=== PATIENT | female | born 1955 | race Caucasian/White ===

== ENCOUNTER 2016-11-13 17:10 | Inpatient (IN) | payer MEDICAID ==
[~2016-11-13] VITALS: Ht 149.9 cm; Wt 28.6 kg
[~2016-11-13 17:10] MED LIST: ALUM-MAG HYDRO360 ML PO; ATIVAN1 MG ORAL; BENADRYL25 MG ORAL; CALCIUM500 M3 PO; COLACE100 MG ORAL; DAILY MULTIPLE1 EACH ORAL; DUONEB 0.5-3(2.53 ML HHN; FERROUS SULFAT325 MG ORAL; FORTEO2.4 ML SUBQ; HYDRALAZINE HCL25 M1 ORAL; IMODIUM A-1 MG/7.5 M PO; METOPROLOL TART50 M1 ORAL; MIRALAX17 G2 GT; MIRTAZAPINE15 MG GT; MIRTAZAPINE15 MG ORAL; MORPHINE SU2 MG/1 M1 IV; NASONEX17 GM NASAL; NITROGLYCERIN0.4 MG SL; NITROSTAT0.4 M1 SL; NORCO 5-325 TA1 EACH ORAL; PROTONIX40 MG GT; SEROQUEL200 MG ORAL; TAPAZOLE5 M1 PO; TEMAZEPAM15 MG GT; TRIHEXYPHENIDYL2 MG ORAL; TYLENOL325 MG ORAL; VANCOMYCIN1 GM; VITAMIN C250 MG ORAL; VITAMIN D22000 UNIT PO; ZOFRAN 4 MG4 MG/2 ML IV; ZYPREXA10 MG ORAL
[2016-11-13 17:35] VITALS: BP 142/77
[2016-11-13] MEDS: Acetaminophen 650 MG SUPP RECTAL ONE ×2 (18:10→18:17)
[2016-11-13] MEDS ORDERED: Ketorolac 30mg Inj IV ONE (18:15)
[2016-11-13] MEDS ORDERED: ARICEPT5 MG GT (18:27)
[2016-11-13] MEDS ORDERED: BENGAY ULTRA S1 EACH TP (18:27)
[2016-11-13] MEDS ORDERED: ATIVAN1 MG GT (18:27)
[2016-11-13] MEDS ORDERED: IBUPROFEN600 MG GT (18:28)
[2016-11-13] MEDS ORDERED: DUONEB 0.5-3(2.53 ML HHN (18:28)
[2016-11-13] MEDS ORDERED: MAALOX ADVANCE770 ML PO (18:28)
[2016-11-13 18:35] LABS: MEAN CORPUSCULAR HEMOGLOBIN 31.8 PG (27.0-31.0); MEAN CORPUSCULAR HGB CONC 33.3 G/DL (32.0-36.0); MEAN CORPUSCULAR VOLUME 96 FL (80-99); MEAN PLATELET VOLUME 8.5 FL (6.5-10.1); PLATELET COUNT 185 K/UL (150-450); RED BLOOD COUNT 3.92 M/UL (4.20-5.40); RED CELL DISTRIBUTION WIDTH 13.1 % (11.6-14.8); WHITE BLOOD COUNT 18.7 K/UL (4.8-10.8)
[2016-11-13 18:47] LABS: TROPONIN I < 0.30 ng/mL (<=0.30)
[2016-11-13 18:50] LABS: ALANINE AMINOTRANSFERASE 68 U/L (3-33); ALBUMIN/GLOBULIN RATIO 1.1 (1.0-2.7); ANION GAP 18 (5-15); ASPARTATE AMINO TRANSFERASE 37 U/L (5-40); CALCIUM 9.1 mg/dL (8.6-10.2); CARBON DIOXIDE 26 mEQ/L (20-30); CHLORIDE 103 mEQ/L (98-107); CREATININE 0.9 mg/dL (0.5-0.9); GLOMERULAR FILTRATION RATE > 60 mL/min (>60); HEMOLYSIS 82; POTASSIUM 4.5 mEQ/L (3.4-4.9); REFLEX LACTIC ACID YES OR NO YES; SODIUM 147 mEQ/L (135-145); TOTAL PROTEIN 6.7 g/dL (6.6-8.7)
[2016-11-13 19:00] LABS: CKMB 2.6 ng/mL (< 3.8)
[2016-11-13 19:11] LABS: APPEARANCE,URINE CLEAR; PH,URINE 7 (4.5-8.0)
[2016-11-13 19:11] LABS: BILIRUBIN,DIRECT 0.5 mg/dL (0.1-0.3)
[2016-11-13 19:12] LABS: KETONES,URINE NEGATIVE (NEGATIVE); LEUKOCYTE ESTERASE ,URINE NEGATIVE (NEGATIVE); NITRITE,URINE NEGATIVE (NEGATIVE); PROTEIN,URINE 2+ (NEGATIVE); UROBILINOGEN,URINE NORMAL MG/DL (0.0-1.0)
[2016-11-13] MEDS ORDERED: ROBITUSSIN COU118 M4 PO (19:20)
[2016-11-13] MEDS ORDERED: ZYPREXA2.5 MG GT (19:21)
[2016-11-13 19:30] LABS: BACTERIA,URINE FEW /HPF; RBC,URINE 0-2 /HPF (0 - 2); WBC,URINE 0-2 /HPF (0 - 2)
[2016-11-13 19:58] LABS: BAND NEUTROPHILS % (MANUAL) 1 % (0-8); BASOPHILS % (MANUAL) 0 % (0-2); EOSINOPHILS % (MANUAL) 0 % (0-3); LYMPHOCYTES % (MANUAL) 13 % (20-45); NEUTROPHILS % (MANUAL) 84 % (45-75); PLATELET ESTIMATE ADEQUATE; PLATELET MORPHOLOGY NORMAL; TOTAL CELLS COUNTED 100
[2016-11-13] MEDS ORDERED: Ampicillin/Sulbactam Sod 3 GM in NS 110 ML IVPB ONE (20:00)
[2016-11-13] MEDS ORDERED: Morphine Sulfate 2mg/ml Inj IVP ONE (20:00)
[2016-11-13] MEDS ORDERED: Unasyn 3gm Inj ONE (20:06)
[2016-11-13] MEDS ORDERED: LORazepam Inj 2mg/ml 1ml IV ONE (20:30)
[2016-11-13] MEDS ORDERED: Metoprolol 5mg/5ml Inj IVP ONE (20:30)
--- NOTE | 2016-11-13 22:23 | Emergency Room Report ---
History of Present Illness General Chief Complaint: Malfunctioning Gastric Tube Source: Family Member, Medical Record Present Illness HPI 61-year-old female presents to ED for evaluation. Per EMS patient was sent in for G-tube placement. Patient resides in complex at home and facility members state that they're unable to flush the G-tube for one day. Patient has encephalopathy and cannot provide any additional history at this time. Patient' s brother is at bedside and is a physician. States that patient also noted to have a fever, tachycardic. Patient has a recent history of multiple watery stools. Brother is also concerned that the patient is having some knee pain. Patient has significant degenerative arthritis in both knees however for the last one week has been complaining of more pain in her knees. No aggravating relieving factors. Denies any other associated symptom Allergies: Coded Allergies: No Known Allergies (Unverified , 05/30/16) Patient History Past Medical History: HTN, other - encephalopathy Past Surgical History: none, other - gtube Pertinent Family History: none Social History: Denies: alcohol use, drug use, smoking Now: No Immunizations: UTD Reviewed Nursing Documentation: PMH: Agreed, PSxH: Agreed Nursing Documentation-PMH Past Medical History: No History, Except For Hx Hypertension: Yes Hx Pacemaker: No Hx Cancer: No Hx Gastrointestinal Problems: Yes - G-tube Hx Neurological Problems: Yes - Muscle weakness, Encephalopathy Hx Parkinson's Disease: Yes Review of Systems All Other Systems: negative except mentioned in HPI Physical Exam Vital Signs Date Time Temp Pulse Resp B/P Pulse Ox O2 Delivery O2 Flow Rate FiO2 11/13/16 17:21 100.0 132 20 142/77 11/13/16 17:35 100 Room Air Sp02 EP Interpretation: reviewed, normal General Appearance: cachetic, thin Head: normocephalic Eyes: bilateral eye PERRL, bilateral eye normal inspection ENT: normal ENT inspection Neck: normal inspection Respiratory: chest non-tender, lungs clear, normal breath sounds, speaking full sentences Cardiovascular #1: no edema, tachycardia Gastrointestinal: other - gtube Rectal: deferred Genitourinary: no CVA tenderness Musculoskeletal: other - swelling b/l knees. unable to extend bilateral knees Neurologic: other - encephalopathy Psychiatric: other - encephalopathy Skin: normal inspection Lymphatic: normal inspection Medical Decision Making Diagnostic Impression: Primary Impression: Sepsis Qualified Codes: A41.9 - Sepsis, unspecified organism Additional Impressions: Physical retardation Colitis Knee fracture, right Malfunction of gastrostomy tube ER Course Hospital Course 61-year-old female presents to ED for G-tube malfunction, noted to have fever and diarrhea, right knee pain Differential diagnoses include: UTI, sepsis, G-tube malfunction, fracture, dislocation Clinical course Patient placed on stretcher. On monitoring specialist with tachycardia. After initial history and physical, I ordered labs, IV fluids, EKG, chest x-ray, blood cultures, UA. The G-tube is not amenable to replacement in emergency room. Patient will require G-tube replacement by GI specialist Labs-leukocytosis noted, hb/hct stable, Na 147, lactate > 2, trop negative CXR - no acute process X-rays of the knees show extensive degenerative changes in the left knee however there is a distal femur fracture in the right knee. Patient is contracted and bedbound. Unable to extend the knee. Patient placed in a long leg splint. C diff stool toxin collected. Antibiotics given. Given Ativan and Lopressor for hypertension, tachycardia Case discussed with Dr. Levy Stern for orthopedics Case discussed with Dr Beasley and they agreed to admit patient to their service for further care and support I feel this is a highly complex case requiring extensive working including EKG/ Rhythm strip, Xray/CT/US, Blood/urine lab work, repeat exams while in ED, and administration of strong opiates/narcotics for pain control, admission to hospital or close patient follow up. Diagnosis - sepsis, physical retardation, colitis, right knee fracture, malfunctioning of gastrostomy tube Patient admitted to telemetry in serious condition Labs Test 11/13/16 17:45 11/13/16 18:13 11/13/16 20:00 White Blood Count 18.7 K/UL (4.8-10.8) Red Blood Count 3.92 M/UL (4.20-5.40) Hemoglobin 12.5 G/DL (12.0-16.0) Hematocrit 37.4 % (37.0-47.0) Mean Corpuscular Volume 96 FL (80-99) Mean Corpuscular Hemoglobin 31.8 PG (27.0-31.0) Mean Corpuscular Hemoglobin Concent 33.3 G/DL (32.0-36.0) Red Cell Distribution Width 13.1 % (11.6-14.8) Platelet Count 185 K/UL (150-450) Mean Platelet Volume 8.5 FL (6.5-10.1) Neutrophils (%) (Auto) % (45.0-75.0) Lymphocytes (%) (Auto) % (20.0-45.0) Monocytes (%) (Auto) % (1.0-10.0) Eosinophils (%) (Auto) % (0.0-3.0) Basophils (%) (Auto) % (0.0-2.0) Differential Total Cells Counted 100 Neutrophils % (Manual) 84 % (45-75) Lymphocytes % (Manual) 13 % (20-45) Monocytes % (Manual) 2 % (1-10) Eosinophils % (Manual) 0 % (0-3) Basophils % (Manual) 0 % (0-2) Band Neutrophils 1 % (0-8) Platelet Estimate Adequate Platelet Morphology Normal Red Blood Cell Morphology Normal Sodium Level 147 mEQ/L (135-145) Potassium Level 4.5 mEQ/L (3.4-4.9) Chloride Level 103 mEQ/L (98-107) Carbon Dioxide Level 26 mEQ/L (20-30) Anion Gap 18 (5-15) Blood Urea Nitrogen 17 mg/dL (7-23) Creatinine 0.9 mg/dL (0.5-0.9) Estimat Glomerular Filtration Rate > 60 mL/min (>60) Glucose Level 121 mg/dL (74-106) Lactic Acid Level 2.00 mmol/L (0.66-2.22) 1.30 mmol/L (0.66-2.22) Calcium Level 9.1 mg/dL (8.6-10.2) Total Bilirubin 1.2 mg/dL (0.0-1.2) Direct Bilirubin 0.5 mg/dL (0.1-0.3) Aspartate Amino Transf (AST/SGOT) 37 U/L (5-40) Alanine Aminotransferase (ALT/SGPT) 68 U/L (3-33) Alkaline Phosphatase 106 U/L (35-104) Total Creatine Kinase 126 U/L (26-140) Creatine Kinase MB 2.6 ng/mL (< 3.8) Creatine Kinase MB Relative Index 2.0 Troponin I < 0.30 ng/mL (<=0.30) Total Protein 6.7 g/dL (6.6-8.7) Albumin 3.6 g/dL (3.5-5.2) Globulin 3.1 g/dL Albumin/Globulin Ratio 1.1 (1.0-2.7) Urine Color Yellow Urine Appearance Clear Urine pH 7 (4.5-8.0) Urine Specific [place] 1.005 (1.005-1.035) Urine Protein 2+ (NEGATIVE) Urine Glucose (UA) Negative (NEGATIVE) Urine Ketones Negative (NEGATIVE) Urine Occult Blood 1+ (NEGATIVE) Urine Nitrite Negative (NEGATIVE) Urine Bilirubin Negative (NEGATIVE) Urine Urobilinogen Normal MG/DL (0.0-1.0) Urine Leukocyte Esterase Negative (NEGATIVE) Urine RBC 0-2 /HPF (0 - 2) Urine WBC 0-2 /HPF (0 - 2) Urine Squamous Epithelial Cells None /LPF (NONE/OCC) Urine Bacteria Few /HPF (NONE) EKG Diagnostic Results Rate: tachycardiac Rhythm: NSR ST Segments: no acute changes ASA given to the pt in ED: No Rhythm Strip Diag. Results EP Interpretation: yes Rhythm: NSR, no PVC's, no ectopy Chest X-Ray Diagnostic Results EP Interpretation: Yes Findings: no consolidation, no effusion, no pneumothorax, no acute cardiopulmonary disease Number of Views: 1 Other X-Ray Diagnostic Results Other X-Ray Diagnostic Results : X-Ray Ordered: R knee, L knee EP Interpretation: Yes Number of Views: 3 Other Impression Left knee-screws in place, no fracture, no dislocation, market soft tissue swelling, extensive degenerative changes Right knee-distal femur fracture, no dislocation, market soft tissue swelling, extensive degenerative changes Last Vital Signs Date Time Temp Pulse Resp B/P Pulse Ox O2 Delivery O2 Flow Rate FiO2 11/13/16 20:41 134 169/91 11/13/16 18:56 100.9 11/13/16 17:35 28 100 Room Air Status: improved Disposition: ADMITTED INPATIENT Condition: Serious Referrals: MONIK BEASLEY (PCP) CIRA BIRCH M.D. Nov 13, 2016 22:23
[2016-11-14 00:12] VITALS: BP 148/80
[2016-11-14] MEDS ORDERED: Nitroglycerin Subl 0.4mg tab (Bottle Of 25) SL PRN (03:30)
[2016-11-14] MEDS ORDERED: Promethazine/Codeine 5ml UD ORAL PRN (03:30)
[2016-11-14] MEDS ORDERED: DuoNeb 0.5-3(2.5)mg/3ml neb HHN PRN (03:30)
[2016-11-14] MEDS ORDERED: LORazepam 1mg tab GT PRN (03:30)
[2016-11-14] MEDS ORDERED: Miralax 17gm pkt ORAL PRN (03:30)
[2016-11-14] MEDS ORDERED: Mylanta II UD 30ml ORAL PRN (03:30)
[2016-11-14 04:07] VITALS: BP 144/70
[2016-11-14] MEDS ORDERED: Cefepime 1gm vial ONE (04:52)
[2016-11-14] MEDS: Cefepime HCl 1 GM in D5W 55 ML IV SCH (05:11)
[2016-11-14] MEDS ORDERED: Vancomycin 500mg/D5W 110ml IVPB ONE ×4 (06:00→12:00)
[2016-11-14] MEDS: LORazepam Inj 2mg/ml 1ml IVP PRN (07:09)
[2016-11-14] MEDS ORDERED: Acetaminophen 650 MG SUPP RECTAL PRN (07:45)
--- NOTE | 2016-11-14 10:03 | Diagnostic Imaging Report ---
Indications: Shortness of breath Technique: Portable AP chest Findings: Comparison: 09/26/16 Cardiac silhouette remains normal in size. Pulmonary vasculature remains within normal limits. Lungs and pleura remain clear. Mild elongation of the aortic arch, elongation and narrowing of the thorax, chronic appearing left rib deformities are unchanged. IMPRESSION: No evidence of acute disease, unchanged Stable chronic changes as described
--- NOTE | 2016-11-14 10:05 | Diagnostic Imaging Report ---
Indications: Left knee pain Technique: 3 views left knee. Findings: Comparison: None No fracture, dislocation, joint space widening or effusion , lytic destruction, periosteal reaction, surrounding soft tissue swelling/foreign body/other abnormality, or other acute changes are identified. Fixation hardware bridges an old, healed fracture of the distal femur. Chronic contour deformity lateral tibial plateau with depression. Bones diffusely demineralized. Probable narrowing of patellofemoral and knee joint spaces. Arterial mural calcifications. IMPRESSION: No evidence of acute abnormality. Old distal femoral, proximal tibial fractures, status post ORIF of former Osteopenia Probable osteoarthritis
[2016-11-14] MEDS: Donepezil 5mg Tab ORAL SCH (10:45)
[2016-11-14] MEDS: OLANZapine 2.5mg tab GT SCH (10:45)
[2016-11-14] MEDS: Heparin 5000 units/ml inj SUBQ SCH ×2 (10:47→21:00)
[2016-11-14 12:00] VITALS: BP 157/95
--- NOTE | 2016-11-14 12:15 | GI Initial Consult Note ---
History of Present Illness General Date patient seen: Nov 14, 2016 Time patient seen: 10:00 Reason for Hospitalization: Malfunctioning Gastric Tube Referring physician: FRANCESCO GOINS Reason for Consultation: GT MALFUNCTION Present Illness HPI 61-year-old female presents to ED for evaluation. Per EMS patient was sent in for G-tube placement. Patient resides in complex at home and facility members state that they're unable to flush the G-tube for one day. Patient has encephalopathy and cannot provide any additional history at this time. Patient' s brother is at bedside and is a physician. States that patient also noted to have a fever, tachycardic. Patient has a recent history of multiple watery stools. Brother is also concerned that the patient is having some knee pain. Patient has significant degenerative arthritis in both knees however for the last one week has been complaining of more pain in her knees. No aggravating relieving factors. Denies any other associated symptom GI CONSULT: HPI as noted above. GI consulted for GT malfunction. Pt seen on floor, awake A&O limited with son by bedside NAD. GT assessed and flushed. GT site area clean, dry with no noted drainage or erythema. Pt presents today with abnormal LFTs, c/o of diarrhea and leukocytosis. Cdiff tox collected >> negative. Endoscopy Procedure Note Indication for Procedure: FTT Procedures Performed: EGD, PEG DAYA CRANE - Sep 28, 2016 08:36 Home Meds Reported Medications Olanzapine* (ZYPREXA*) 2.5 Mg Tablet, 2.5 MG GT DAILY, #30 TAB 0 Refills 11/13/16 Guaifenesin/Dextromethorphan (Robitussin Cough-Chest Dm Liq) 118 Ml Liquid, 10 ML PO EVERY 8 HOURS Y for For Cough, ML 11/13/16 Ibuprofen* (MOTRIN*) 600 Mg Tablet, 600 MG ORAL Q8H Y for For Pain, #30 TAB 0 Refills 11/13/16 Menthol (BENGAY ULTRA STRENGTH) 1 Each Adh..patch, 1 EACH TP BID, PATCH 11/13/16 Lorazepam* (ATIVAN*) 1 Mg Tablet, 1 MG GT EVERY 6 HOURS Y for For Anxiety, TAB 11/13/16 Donepezil Hcl* (ARICEPT*) 5 Mg Tablet, 5 MG ORAL DAILY, TAB 11/13/16 Mirtazapine* (REMERON*) 15 Mg Tablet, 15 MG GT BEDTIME, TAB 09/26/16 Temazepam (TEMAZEPAM*) 15 Mg Capsule, 15 MG GT HS Y for Insomnia, #30 CAP 0 Refills 06/04/16 Polyethylene Glycol 3350* (MIRALAX*) 17 Gm Powd.pack, 17 GM ORAL DAILY Y for Constipation, PACKET 06/04/16 Pantoprazole* (PROTONIX*) 40 Mg Tablet.dr, 40 MG GT ACBREAKFAST, TAB 06/04/16 Nitroglycerin (NITROSTAT) 0.4 Mg Tab.subl, 0.4 MG SL Q5M X3 DOSES Y for AD, #25 TAB 0 Refills 06/04/16 Ipratropium/Albuterol Sulfate (DuoNeb 0.5-3(2.5)mg/3ml) 3 Ml Ampul.neb, 3 ML HHN Q4HR Y for Shortness of Breath, EA 06/04/16 Acetaminophen (Tylenol) 325 Mg Tablet, 650 MG ORAL Q4HR Y for Mild Pain/Temp > 100.5, #30 TAB 0 Refills 06/04/16 Mag Hydrox/Al Hydrox/Simeth (ALUM-MAG HYDROXIDE-SIMETH LIQ) 360 Ml Oral.susp, 30 ML PO Q6HR Y for Abdominal cramps, ML 05/30/16 Discontinued Reported Medications Mag Hydrox/Al Hydrox/Simeth (Maalox Advanced Suspension) 355 Ml Oral.susp, 30 ML PO EVERY 6 HOURS Y for GI upset, ML 11/13/16 Ipratropium/Albuterol Sulfate (DuoNeb 0.5-3(2.5)mg/3ml) 3 Ml Ampul.neb, 3 ML HHN EVERY 4 HOURS, EA 11/13/16 Med list reviewed/reconciled: Yes Allergies: Coded Allergies: No Known Allergies (Unverified , 05/30/16) Patient History Limited by: medical condition History Provided By: Family Member, Medical Record PMH Narrative Past Medical History: HTN, other - encephalopathy Past Surgical History: none, other - gtube Pertinent Family History: none Social History: Denies: alcohol use, drug use, smoking Now: No Immunizations: UTD Reviewed Nursing Documentation: PMH: Agreed, PSxH: Agreed Nursing Documentation-PM Past Medical History: No History, Except For Hx Hypertension: Yes Hx Pacemaker: No Hx Cancer: No Hx Gastrointestinal Problems: Yes - G-tube Hx Neurological Problems: Yes - Muscle weakness, Encephalopathy Hx Parkinson's Disease: Yes Review of Systems All Other Systems: limited Physical Exam Vital Signs Date Time Temp Pulse Resp B/P Pulse Ox O2 Delivery O2 Flow Rate FiO2 11/13/16 17:21 100.0 132 20 142/77 11/13/16 17:35 100 Room Air 11/14/16 00:12 2.0 11/14/16 07:50 28 Sp02 EP Interpretation: reviewed Labs Laboratory Tests Test 11/13/16 17:45 11/13/16 18:13 11/13/16 20:00 White Blood Count 18.7 K/UL (4.8-10.8) H Red Blood Count 3.92 M/UL (4.20-5.40) L Hemoglobin 12.5 G/DL (12.0-16.0) Hematocrit 37.4 % (37.0-47.0) Mean Corpuscular Volume 96 FL (80-99) Mean Corpuscular Hemoglobin 31.8 PG (27.0-31.0) H Mean Corpuscular Hemoglobin Concent 33.3 G/DL (32.0-36.0) Red Cell Distribution Width 13.1 % (11.6-14.8) Platelet Count 185 K/UL (150-450) Mean Platelet Volume 8.5 FL (6.5-10.1) Neutrophils (%) (Auto) % (45.0-75.0) Lymphocytes (%) (Auto) % (20.0-45.0) Monocytes (%) (Auto) % (1.0-10.0) Eosinophils (%) (Auto) % (0.0-3.0) Basophils (%) (Auto) % (0.0-2.0) Differential Total Cells Counted 100 Neutrophils % (Manual) 84 % (45-75) H Lymphocytes % (Manual) 13 % (20-45) L Monocytes % (Manual) 2 % (1-10) Eosinophils % (Manual) 0 % (0-3) Basophils % (Manual) 0 % (0-2) Band Neutrophils 1 % (0-8) Platelet Estimate Adequate Platelet Morphology Normal Red Blood Cell Morphology Normal Sodium Level 147 mEQ/L (135-145) H Potassium Level 4.5 mEQ/L (3.4-4.9) Chloride Level 103 mEQ/L (98-107) Carbon Dioxide Level 26 mEQ/L (20-30) Anion Gap 18 (5-15) H Blood Urea Nitrogen 17 mg/dL (7-23) Creatinine 0.9 mg/dL (0.5-0.9) Estimat Glomerular Filtration Rate > 60 mL/min (>60) Glucose Level 121 mg/dL (74-106) H Lactic Acid Level 2.00 mmol/L (0.66-2.22) 1.30 mmol/L (0.66-2.22) Calcium Level 9.1 mg/dL (8.6-10.2) Total Bilirubin 1.2 mg/dL (0.0-1.2) Direct Bilirubin 0.5 mg/dL (0.1-0.3) H Aspartate Amino Transf (AST/SGOT) 37 U/L (5-40) Alanine Aminotransferase (ALT/SGPT) 68 U/L (3-33) H Alkaline Phosphatase 106 U/L (35-104) H Total Creatine Kinase 126 U/L (26-140) Creatine Kinase MB 2.6 ng/mL (< 3.8) Creatine Kinase MB Relative Index 2.0 Troponin I < 0.30 ng/mL (<=0.30) Total Protein 6.7 g/dL (6.6-8.7) Albumin 3.6 g/dL (3.5-5.2) Globulin 3.1 g/dL Albumin/Globulin Ratio 1.1 (1.0-2.7) Urine Color Yellow Urine Appearance Clear Urine pH 7 (4.5-8.0) Urine Specific [place] 1.005 (1.005-1.035) Urine Protein 2+ (NEGATIVE) H Urine Glucose (UA) Negative (NEGATIVE) Urine Ketones Negative (NEGATIVE) Urine Occult Blood 1+ (NEGATIVE) H Urine Nitrite Negative (NEGATIVE) Urine Bilirubin Negative (NEGATIVE) Urine Urobilinogen Normal MG/DL (0.0-1.0) Urine Leukocyte Esterase Negative (NEGATIVE) Urine RBC 0-2 /HPF (0 - 2) Urine WBC 0-2 /HPF (0 - 2) Urine Squamous Epithelial Cells None /LPF (NONE/OCC) Urine Bacteria Few /HPF (NONE) General Appearance: no apparent distress, alert, thin Head: normocephalic EENT: normal ENT inspection Neck: supple Respiratory: no respiratory distress Cardiovascular: tachycardia Gastrointestinal: gt - c/d/i Neurologic: alert Skin: normal inspection, normal color, no rash, warm/dry Lymphatic: normal inspection, no adenopathy Current Medications Current Medications Medications (Trade) Dose Ordered Sig/Curt Route PRN Reason Start Time Stop Time Status Last Admin Dose Admin Acetaminophen (Tylenol) 650 mg Q4H PRN RECTAL Mild Pain/Temp > 100.5 11/14/16 07:45 12/14/16 07:44 Al Hydroxide/Mg Hydroxide (Mylanta II) 30 ml Q6H PRN ORAL dyspepsia 11/14/16 03:30 12/14/16 03:29 Albuterol/ Ipratropium 3 ml 3 ml Q4H PRN HHN Shortness of Breath 11/14/16 03:30 11/19/16 03:29 Cefepime HCl/ Dextrose (Maxipime/D5W) 55 ml @ 110 mls/hr Q24H IV 11/14/16 05:00 11/21/16 04:59 11/14/16 05:11 Donepezil HCl (Aricept) 5 mg DAILY ORAL 11/14/16 09:00 12/14/16 08:59 11/14/16 10:45 Heparin Sodium (Porcine) (Heparin 5000 units/ml) 5,000 units EVERY 12 HOURS SUBQ 11/14/16 09:00 12/14/16 08:59 11/14/16 10:47 Ibuprofen 600 mg 600 mg Q6H PRN ORAL Moderate Pain (Pain Scale 4-6) 11/14/16 10:30 12/14/16 10:29 Lorazepam (Ativan 2mg/ml 1ml) 1 mg Q6HR PRN IVP For Anxiety 11/14/16 07:00 11/21/16 06:59 11/14/16 07:09 Morphine Sulfate (Morphine Sulfate) 2 mg Q4H PRN IVP Severe Pain (Pain Scale 7-10) 11/14/16 10:30 11/21/16 10:29 Nitroglycerin (Ntg) 0.4 mg Q5M PRN SL Prn Chest Pain 11/14/16 03:30 12/14/16 03:29 Olanzapine (ZyPREXA) 2.5 mg DAILY GT 11/14/16 09:00 12/14/16 08:59 11/14/16 10:45 Ondansetron HCl (Zofran) 4 mg Q6H PRN IVP Nausea & Vomiting 11/14/16 03:30 12/14/16 03:29 Polyethylene Glycol (Miralax) 17 gm DAILYPRN PRN ORAL Constipation 11/14/16 03:30 12/14/16 03:29 Promethazine HCl/ Codeine (Phenergan with Codeine) 5 ml Q4H PRN ORAL For Cough 11/14/16 03:30 12/14/16 03:29 Temazepam (Restoril) 15 mg HSPRN PRN ORAL Insomnia 11/14/16 03:30 11/21/16 03:29 Vancomycin HCl (Vanco rx to dose) 1 ea DAILY PRN MISC Per rx protocol 11/14/16 03:30 12/14/16 03:29 Vancomycin HCl 500 mg/Dextrose 110 ml @ 110 mls/hr ONCE ONCE IVPB 11/14/16 12:00 11/14/16 12:59 Vancomycin HCl/ Dextrose (Vancomycin/D5W) 275 ml @ 183.708 mls/hr Q24H IVPB 11/15/16 12:00 11/20/16 11:59 GI: Plan Problems: (1) Severe malnutrition (2) Malfunction of gastrostomy tube (3) Leukocytosis (4) Physical retardation Plan cdiff negative GT malfunction >> KUB placement confirmation >> DO NOT USE, GT not in stomach > > ordered APCT - possible GT replacement hold GTFs GT care daily / prn honey thick diet for oral gratification H2 fu labs abx recommend ortho consult for R knee Discussed with Dr. Crane. Thank you for referring this patient, we will follow. Concetta Reece N.P. Nov 14, 2016 12:15
[2016-11-14] MEDS: Morphine Sulfate 2mg/ml Inj IVP PRN (12:16)
--- NOTE | 2016-11-14 13:42 | Consultation ---
History of Present Illness General Date patient seen: Nov 14, 2016 Chief Complaint: Malfunctioning Gastric Tube Referring physician: FRANCESCO GOINS Reason for Consultation: GT MALFUNCTION Present Illness HPI 61 year old female with mental and physical retardation, [facility] feeding shelter resident. She was brought in to [facility], then she was noted to have tachycardia and admitted to telemetry. She apparently has some injuries to he right knee. Ortho was also called by ER physician. Allergies: Coded Allergies: No Known Allergies (Unverified , 05/30/16) Medication History Scheduled Donepezil Hcl* (Aricept*), 5 MG ORAL DAILY, (Reported) Menthol ([place] Ultra Strength), 1 EACH TP BID, (Reported) Mirtazapine* (Remeron*), 15 MG GT BEDTIME, (Reported) Olanzapine* (Zyprexa*), 2.5 MG GT DAILY, (Reported) Pantoprazole* (Protonix*), 40 MG GT ACBREAKFAST, (Reported) Scheduled PRN Acetaminophen (Tylenol), 650 MG ORAL Q4HR PRN for Mild Pain/Temp > 100.5, ( Reported) Guaifenesin/Dextromethorphan (Robitussin Cough-Chest Dm Liq), 10 ML PO EVERY 8 HOURS PRN for For Cough, (Reported) Ibuprofen* (Motrin*), 600 MG ORAL Q8H PRN for For Pain, (Reported) Ipratropium/Albuterol Sulfate (DuoNeb 0.5-3(2.5)mg/3ml), 3 ML HHN Q4HR PRN for Shortness of Breath, (Reported) Lorazepam* (Ativan*), 1 MG GT EVERY 6 HOURS PRN for For Anxiety, (Reported) Mag Hydrox/Al Hydrox/Simeth (Alum-Mag Hydroxide-Simeth Liq), 30 ML PO Q6HR PRN for Abdominal cramps, (Reported) Nitroglycerin (Nitrostat), 0.4 MG SL Q5M X3 DOSES PRN for AD, (Reported) Polyethylene Glycol 3350* (Miralax*), 17 GM ORAL DAILY PRN for Constipation, ( Reported) Temazepam (Temazepam*), 15 MG GT HS PRN for Insomnia, (Reported) Discontinued Medications Ipratropium/Albuterol Sulfate (DuoNeb 0.5-3(2.5)mg/3ml), 3 ML HHN EVERY 4 HOURS, (Reported) Discontinued Reason: discontinued med Mag Hydrox/Al Hydrox/Simeth (Maalox Advanced Suspension), 30 ML PO EVERY 6 HOURS PRN for GI upset, (Reported) Discontinued Reason: MD discontinued med Patient History Healthcare decision maker Jaswant Eduardo (brother) Resuscitation status Full Code Advanced Directive on File No Past Medical/Surgical History Past Medical/Surgical History: (1) Severe malnutrition (2) Physical retardation Review of Systems Constitutional: Reports: no symptoms Eye: Reports: no symptoms Physical Exam Lines, tubes and drains: peripheral, central line HEENT: normocephalic, atraumatic Neck: non-tender, normal alignment Respiratory/Chest: chest wall non-tender, lungs clear Breasts: no masses Cardiovascular/Chest: normal rate Abdomen: normal bowel sounds Genitourinary/Rectal: normal genital exam Last 24 Hour Vital Signs Date Time Temp Pulse Resp B/P Pulse Ox O2 Delivery O2 Flow Rate FiO2 11/14/16 12:46 98.7 11/14/16 07:51 Nasal Cannula 2.0 28 11/14/16 07:51 114 20 Nasal Cannula 2.0 28 11/14/16 07:50 100 Nasal Cannula 2.0 28 11/14/16 07:49 120 11/14/16 04:07 98.7 114 18 144/70 100 Nasal Cannula 2.0 11/14/16 03:29 116 11/14/16 00:12 98.3 111 19 148/80 97 Nasal Cannula 2.0 11/13/16 23:55 113 11/13/16 21:00 100.9 126 28 169/91 100 Room Air 11/13/16 20:41 134 169/91 11/13/16 18:56 100.9 11/13/16 17:35 98.8 140 28 142/77 100 Room Air 11/13/16 17:21 100.0 132 20 142/77 Intake and Output 11/13/16 11/14/16 19:00 07:00 Output Total 30 ml 800 ml Balance -30 ml -800 ml Output Urine Total 30 ml 800 ml # Bowel Movements 1 Laboratory Tests Test 11/13/16 17:45 11/13/16 18:13 11/13/16 20:00 White Blood Count 18.7 K/UL (4.8-10.8) H Red Blood Count 3.92 M/UL (4.20-5.40) L Hemoglobin 12.5 G/DL (12.0-16.0) Hematocrit 37.4 % (37.0-47.0) Mean Corpuscular Volume 96 FL (80-99) Mean Corpuscular Hemoglobin 31.8 PG (27.0-31.0) H Mean Corpuscular Hemoglobin Concent 33.3 G/DL (32.0-36.0) Red Cell Distribution Width 13.1 % (11.6-14.8) Platelet Count 185 K/UL (150-450) Mean Platelet Volume 8.5 FL (6.5-10.1) Neutrophils (%) (Auto) % (45.0-75.0) Lymphocytes (%) (Auto) % (20.0-45.0) Monocytes (%) (Auto) % (1.0-10.0) Eosinophils (%) (Auto) % (0.0-3.0) Basophils (%) (Auto) % (0.0-2.0) Differential Total Cells Counted 100 Neutrophils % (Manual) 84 % (45-75) H Lymphocytes % (Manual) 13 % (20-45) L Monocytes % (Manual) 2 % (1-10) Eosinophils % (Manual) 0 % (0-3) Basophils % (Manual) 0 % (0-2) Band Neutrophils 1 % (0-8) Platelet Estimate Adequate Platelet Morphology Normal Red Blood Cell Morphology Normal Sodium Level 147 mEQ/L (135-145) H Potassium Level 4.5 mEQ/L (3.4-4.9) Chloride Level 103 mEQ/L (98-107) Carbon Dioxide Level 26 mEQ/L (20-30) Anion Gap 18 (5-15) H Blood Urea Nitrogen 17 mg/dL (7-23) Creatinine 0.9 mg/dL (0.5-0.9) Estimat Glomerular Filtration Rate > 60 mL/min (>60) Glucose Level 121 mg/dL (74-106) H Lactic Acid Level 2.00 mmol/L (0.66-2.22) 1.30 mmol/L (0.66-2.22) Calcium Level 9.1 mg/dL (8.6-10.2) Total Bilirubin 1.2 mg/dL (0.0-1.2) Direct Bilirubin 0.5 mg/dL (0.1-0.3) H Aspartate Amino Transf (AST/SGOT) 37 U/L (5-40) Alanine Aminotransferase (ALT/SGPT) 68 U/L (3-33) H Alkaline Phosphatase 106 U/L (35-104) H Total Creatine Kinase 126 U/L (26-140) Creatine Kinase MB 2.6 ng/mL (< 3.8) Creatine Kinase MB Relative Index 2.0 Troponin I < 0.30 ng/mL (<=0.30) Total Protein 6.7 g/dL (6.6-8.7) Albumin 3.6 g/dL (3.5-5.2) Globulin 3.1 g/dL Albumin/Globulin Ratio 1.1 (1.0-2.7) Urine Color Yellow Urine Appearance Clear Urine pH 7 (4.5-8.0) Urine Specific [place] 1.005 (1.005-1.035) Urine Protein 2+ (NEGATIVE) H Urine Glucose (UA) Negative (NEGATIVE) Urine Ketones Negative (NEGATIVE) Urine Occult Blood 1+ (NEGATIVE) H Urine Nitrite Negative (NEGATIVE) Urine Bilirubin Negative (NEGATIVE) Urine Urobilinogen Normal MG/DL (0.0-1.0) Urine Leukocyte Esterase Negative (NEGATIVE) Urine RBC 0-2 /HPF (0 - 2) Urine WBC 0-2 /HPF (0 - 2) Urine Squamous Epithelial Cells None /LPF (NONE/OCC) Urine Bacteria Few /HPF (NONE) Microbiology Date/Time Source Procedure Growth Status 11/13/16 18:13 Stool Clostridium difficile Toxin Assay - Final Complete Height (Feet): 4 Height (Inches): 11.00 Weight (Pounds): 63 Medications Current Medications Medications (Trade) Dose Ordered Sig/Curt Route PRN Reason Start Time Stop Time Status Last Admin Dose Admin Acetaminophen (Tylenol) 650 mg Q4H PRN RECTAL Mild Pain/Temp > 100.5 11/14/16 07:45 12/14/16 07:44 Al Hydroxide/Mg Hydroxide (Mylanta II) 30 ml Q6H PRN ORAL dyspepsia 11/14/16 03:30 12/14/16 03:29 Albuterol/ Ipratropium 3 ml 3 ml Q4H PRN HHN Shortness of Breath 11/14/16 03:30 11/19/16 03:29 Cefepime HCl/ Dextrose (Maxipime/D5W) 55 ml @ 110 mls/hr Q24H IV 11/14/16 05:00 11/21/16 04:59 11/14/16 05:11 Donepezil HCl (Aricept) 5 mg DAILY ORAL 11/14/16 09:00 12/14/16 08:59 11/14/16 10:45 Famotidine (Pepcid I.v.) 20 mg Q12HR IVP 11/15/16 09:00 12/15/16 08:59 Heparin Sodium (Porcine) (Heparin 5000 units/ml) 5,000 units EVERY 12 HOURS SUBQ 11/14/16 09:00 12/14/16 08:59 11/14/16 10:47 Ibuprofen 600 mg 600 mg Q6H PRN ORAL Moderate Pain (Pain Scale 4-6) 11/14/16 10:30 12/14/16 10:29 Lorazepam (Ativan 2mg/ml 1ml) 1 mg Q6HR PRN IVP For Anxiety 11/14/16 07:00 11/21/16 06:59 11/14/16 07:09 Morphine Sulfate (Morphine Sulfate) 2 mg Q4H PRN IVP Severe Pain (Pain Scale 7-10) 11/14/16 10:30 11/21/16 10:29 11/14/16 12:16 Nitroglycerin (Ntg) 0.4 mg Q5M PRN SL Prn Chest Pain 11/14/16 03:30 12/14/16 03:29 Olanzapine (ZyPREXA) 2.5 mg DAILY GT 11/14/16 09:00 12/14/16 08:59 11/14/16 10:45 Ondansetron HCl (Zofran) 4 mg Q6H PRN IVP Nausea & Vomiting 11/14/16 03:30 12/14/16 03:29 Polyethylene Glycol (Miralax) 17 gm DAILYPRN PRN ORAL Constipation 11/14/16 03:30 12/14/16 03:29 Promethazine HCl/ Codeine (Phenergan with Codeine) 5 ml Q4H PRN ORAL For Cough 11/14/16 03:30 12/14/16 03:29 Temazepam (Restoril) 15 mg HSPRN PRN ORAL Insomnia 11/14/16 03:30 11/21/16 03:29 Vancomycin HCl (Vanco rx to dose) 1 ea DAILY PRN MISC Per rx protocol 11/14/16 03:30 12/14/16 03:29 Vancomycin HCl/ Dextrose (Vancomycin/D5W) 275 ml @ 183.708 mls/hr Q24H IVPB 11/15/16 12:00 11/20/16 11:59 Assessment/Plan Problem List: (1) Tachycardia ICD Codes: R00.0 - Tachycardia, unspecified SNOMED: 9789896 (2) Encounter for PEG (percutaneous endoscopic gastrostomy) ICD Codes: Z43.1 - Encounter for attention to gastrostomy SNOMED: 618495603, 712662511 (3) Malfunction of gastrostomy tube ICD Codes: K94.23 - Gastrostomy malfunction SNOMED: 224653615 (4) Physical retardation ICD Codes: R62.52 - Short stature (child) SNOMED: 654157145 Assessment/Plan pain control cardiology evaluation Ortho evaluation dvt prophylaxis FRANCESCO BO Nov 14, 2016 13:42
[2016-11-14 16:00] VITALS: BP 152/82
--- NOTE | 2016-11-14 16:14 | Infectious Diseases Prog Note ---
Assessment/Plan Problems: (1) Sepsis Assessment & Plan: continue vancomycin and cefepime, await blood culture (2) Encounter for PEG (percutaneous endoscopic gastrostomy) Assessment & Plan: GI is consulted (3) Leukocytosis Assessment & Plan: suspect due to sepsis VS dehydration , send culture continue wide spectrum antibiotics (4) Femur fracture, right Assessment & Plan: S/P cast placement, consult ortho Subjective Allergies: Coded Allergies: No Known Allergies (Unverified , 05/30/16) Objective Vital Signs Last 24 Hour Vital Signs Date Time Temp Pulse Resp B/P Pulse Ox O2 Delivery O2 Flow Rate FiO2 11/14/16 16:00 97.9 125 20 152/82 94 Nasal Cannula 2.0 11/14/16 12:46 98.7 11/14/16 12:00 98.2 120 18 157/95 100 Nasal Cannula 3.0 112 11/14/16 07:51 Nasal Cannula 2.0 28 11/14/16 07:51 114 20 Nasal Cannula 2.0 28 11/14/16 07:50 100 Nasal Cannula 2.0 28 11/14/16 07:49 120 11/14/16 04:07 98.7 114 18 144/70 100 Nasal Cannula 2.0 11/14/16 03:29 116 11/14/16 00:12 98.3 111 19 148/80 97 Nasal Cannula 2.0 11/13/16 23:55 113 11/13/16 21:00 100.9 126 28 169/91 100 Room Air 11/13/16 20:41 134 169/91 11/13/16 18:56 100.9 11/13/16 17:35 98.8 140 28 142/77 100 Room Air 11/13/16 17:21 100.0 132 20 142/77 Height (Feet): 4 Height (Inches): 11.00 Weight (Pounds): 63 Microbiology Date/Time Source Procedure Growth Status 11/13/16 18:13 Stool Clostridium difficile Toxin Assay - Final Complete Laboratory Tests Test 11/13/16 17:45 11/13/16 18:13 11/13/16 20:00 White Blood Count 18.7 K/UL (4.8-10.8) H Red Blood Count 3.92 M/UL (4.20-5.40) L Hemoglobin 12.5 G/DL (12.0-16.0) Hematocrit 37.4 % (37.0-47.0) Mean Corpuscular Volume 96 FL (80-99) Mean Corpuscular Hemoglobin 31.8 PG (27.0-31.0) H Mean Corpuscular Hemoglobin Concent 33.3 G/DL (32.0-36.0) Red Cell Distribution Width 13.1 % (11.6-14.8) Platelet Count 185 K/UL (150-450) Mean Platelet Volume 8.5 FL (6.5-10.1) Neutrophils (%) (Auto) % (45.0-75.0) Lymphocytes (%) (Auto) % (20.0-45.0) Monocytes (%) (Auto) % (1.0-10.0) Eosinophils (%) (Auto) % (0.0-3.0) Basophils (%) (Auto) % (0.0-2.0) Differential Total Cells Counted 100 Neutrophils % (Manual) 84 % (45-75) H Lymphocytes % (Manual) 13 % (20-45) L Monocytes % (Manual) 2 % (1-10) Eosinophils % (Manual) 0 % (0-3) Basophils % (Manual) 0 % (0-2) Band Neutrophils 1 % (0-8) Platelet Estimate Adequate Platelet Morphology Normal Red Blood Cell Morphology Normal Sodium Level 147 mEQ/L (135-145) H Potassium Level 4.5 mEQ/L (3.4-4.9) Chloride Level 103 mEQ/L (98-107) Carbon Dioxide Level 26 mEQ/L (20-30) Anion Gap 18 (5-15) H Blood Urea Nitrogen 17 mg/dL (7-23) Creatinine 0.9 mg/dL (0.5-0.9) Estimat Glomerular Filtration Rate > 60 mL/min (>60) Glucose Level 121 mg/dL (74-106) H Lactic Acid Level 2.00 mmol/L (0.66-2.22) 1.30 mmol/L (0.66-2.22) Calcium Level 9.1 mg/dL (8.6-10.2) Total Bilirubin 1.2 mg/dL (0.0-1.2) Direct Bilirubin 0.5 mg/dL (0.1-0.3) H Aspartate Amino Transf (AST/SGOT) 37 U/L (5-40) Alanine Aminotransferase (ALT/SGPT) 68 U/L (3-33) H Alkaline Phosphatase 106 U/L (35-104) H Total Creatine Kinase 126 U/L (26-140) Creatine Kinase MB 2.6 ng/mL (< 3.8) Creatine Kinase MB Relative Index 2.0 Troponin I < 0.30 ng/mL (<=0.30) Total Protein 6.7 g/dL (6.6-8.7) Albumin 3.6 g/dL (3.5-5.2) Globulin 3.1 g/dL Albumin/Globulin Ratio 1.1 (1.0-2.7) Urine Color Yellow Urine Appearance Clear Urine pH 7 (4.5-8.0) Urine Specific [place] 1.005 (1.005-1.035) Urine Protein 2+ (NEGATIVE) H Urine Glucose (UA) Negative (NEGATIVE) Urine Ketones Negative (NEGATIVE) Urine Occult Blood 1+ (NEGATIVE) H Urine Nitrite Negative (NEGATIVE) Urine Bilirubin Negative (NEGATIVE) Urine Urobilinogen Normal MG/DL (0.0-1.0) Urine Leukocyte Esterase Negative (NEGATIVE) Urine RBC 0-2 /HPF (0 - 2) Urine WBC 0-2 /HPF (0 - 2) Urine Squamous Epithelial Cells None /LPF (NONE/OCC) Urine Bacteria Few /HPF (NONE) Current Medications Medications (Trade) Dose Ordered Sig/Curt Route PRN Reason Start Time Stop Time Status Last Admin Dose Admin Acetaminophen (Tylenol) 650 mg Q4H PRN RECTAL Mild Pain/Temp > 100.5 11/14/16 07:45 12/14/16 07:44 Al Hydroxide/Mg Hydroxide (Mylanta II) 30 ml Q6H PRN ORAL dyspepsia 11/14/16 03:30 12/14/16 03:29 Albuterol/ Ipratropium 3 ml 3 ml Q4H PRN HHN Shortness of Breath 11/14/16 03:30 11/19/16 03:29 Cefepime HCl/ Dextrose (Maxipime/D5W) 55 ml @ 110 mls/hr Q24H IV 11/14/16 05:00 11/21/16 04:59 11/14/16 05:11 Donepezil HCl (Aricept) 5 mg DAILY ORAL 11/14/16 09:00 12/14/16 08:59 11/14/16 10:45 Famotidine (Pepcid I.v.) 20 mg Q12HR IVP 11/15/16 09:00 12/15/16 08:59 Heparin Sodium (Porcine) (Heparin 5000 units/ml) 5,000 units EVERY 12 HOURS SUBQ 11/14/16 09:00 12/14/16 08:59 11/14/16 10:47 Ibuprofen 600 mg 600 mg Q6H PRN ORAL Moderate Pain (Pain Scale 4-6) 11/14/16 10:30 12/14/16 10:29 Lorazepam (Ativan 2mg/ml 1ml) 1 mg Q6HR PRN IVP For Anxiety 11/14/16 07:00 11/21/16 06:59 11/14/16 07:09 Morphine Sulfate (Morphine Sulfate) 2 mg Q4H PRN IVP Severe Pain (Pain Scale 7-10) 11/14/16 10:30 11/21/16 10:29 11/14/16 12:16 Nitroglycerin (Ntg) 0.4 mg Q5M PRN SL Prn Chest Pain 11/14/16 03:30 12/14/16 03:29 Olanzapine (ZyPREXA) 2.5 mg DAILY GT 11/14/16 09:00 12/14/16 08:59 11/14/16 10:45 Ondansetron HCl (Zofran) 4 mg Q6H PRN IVP Nausea & Vomiting 11/14/16 03:30 12/14/16 03:29 Polyethylene Glycol (Miralax) 17 gm DAILYPRN PRN ORAL Constipation 11/14/16 03:30 12/14/16 03:29 Promethazine HCl/ Codeine (Phenergan with Codeine) 5 ml Q4H PRN ORAL For Cough 11/14/16 03:30 12/14/16 03:29 Temazepam (Restoril) 15 mg HSPRN PRN ORAL Insomnia 11/14/16 03:30 11/21/16 03:29 Vancomycin HCl (Vanco rx to dose) 1 ea DAILY PRN MISC Per rx protocol 11/14/16 03:30 12/14/16 03:29 Vancomycin HCl/ Dextrose (Vancomycin/D5W) 275 ml @ 183.708 mls/hr Q24H IVPB 2/9/17 12:00 11/20/16 11:59 Fede Cannon M.D. Nov 14, 2016 16:14
[2016-11-14 20:00] VITALS: BP 146/78
--- NOTE | 2016-11-14 21:08 | Consultation ---
DATE OF CONSULTATION: INFECTIOUS DISEASE CONSULTATION CONSULTING PHYSICIAN: Fede Cannon M.D. REQUESTING PHYSICIAN: Justyn Mcpherson D.O. REASON FOR CONSULTATION: Sepsis, fever, and leukocytosis. Recommendation for antibiotics treatment. HISTORY OF PRESENT ILLNESS: The patient is a 61-year-old female with mental delay, was sent to the [facility] emergency room for G-tube placement. The patient lives at a rehabilitation facility where they were unable to flush her G-tube for one day. The patient was noted to have fever and tachycardia with watery diarrhea. She also had right knee pain. The patient had an x-ray of her right knee, which showed distal femur shaft fracture. G-tube was unable to be replaced in the emergency room. So, she was admitted for further evaluation. The patient was found to have fever with leukocytosis, so she was started on IV antibiotics and I was asked by the primary provider for antibiotics treatment and management for possible sepsis. As of note, the patient is a poor historian and cannot provide good history. History was mainly obtained from the medical record. PAST MEDICAL HISTORY: Significant for hypertension, dysphagia, Parkinson, developmental delay, and encephalopathy. PAST SURGICAL HISTORY: She had a G-tube placement. MEDICATIONS: The patient received vancomycin and cefepime. For the rest of her medications, please refer to MAR. ALLERGIES: She has no known drug allergy. SOCIAL HISTORY: She had no recent drugs, tobacco, or alcohol. FAMILY HISTORY: Unable to obtain. REVIEW OF SYSTEMS: Unable to obtain at this point. LABORATORY DATA: White count 18.7, hemoglobin of 12.5, and platelet count of 185,000. BUN of 17 and creatinine of 0.9. AST of 37 and ALT of 68. Urine analysis was negative for urinary tract infection. MICROBIOLOGY: Stool for C. difficile was negative. IMAGING: Chest x-ray showed no evidence of acute disease. Right knee x-ray showed old distal femoral proximal tibial fracture status post open reduction internal fixation of the femur, osteopenia, and probable osteoarthritis. PHYSICAL EXAMINATION: VITAL SIGNS: Temperature 97.9 degrees, pulse 125, respirations 20, blood pressure 152/82, and saturation 94% on two liters nasal cannula. GENERAL: A middle-aged female, malnourished, demented, lying in bed, alert, and not in distress. HEENT: Normocephalic and atraumatic. Pupils are reactive to light equally. Pale sclerae. Dry oral mucosa. No exudate. NECK: Supple. No lymphadenopathy. CARDIOVASCULAR: Regular rate and rhythm. Tachycardic. S1 and S2 positive. LUNGS: She had diminished breathing sounds at the bases, but no wheezing or rhonchi. ABDOMEN: Soft, nontender, and nondistended. Positive bowel sounds. No hepatosplenomegaly. G-tube site looks intact with no skin erythema or cellulitis. EXTREMITIES: She has right leg in a cast. Left leg, no edema or cyanosis. ASSESSMENT AND PLAN: 1. Sepsis and leukocytosis. Source could be gastrostomy site infection versus right knee bone fracture. Continue vancomycin and cefepime empirically for now. Await blood culture results. 2. Right proximal tibial fracture status post cast placement. Followup with Ortho. Await blood culture. The patient is on wide-spectrum antibiotics therapy. 3. Gastrostomy tube malfunctioning. Gastrointestinal was consulted. Further recommendation as per Gastrointestinal. Hold tube feeding for now. 4. Leukocytosis due to sepsis versus dehydration. Await blood culture. Continue wide-spectrum antibiotics therapy. 5. Mental retardation. Continue supportive care. Fede Cannon M.D. DR: REAGAN JOB#: [id number] CC:
--- NOTE | 2016-11-14 21:58 | History and Physical Report ---
DATE OF ADMISSION: 11/13/2016 TIME SEEN: At 2 p.m. ATTENDING PHYSICIAN: Justyn Mcpherson D.O. CONSULTANTS: 1. Fede Cannon M.D. 2. Lisha Clarke M.D. 3. Lc Crane M.D. 4. Dr. Stern. CHIEF COMPLAINT: Fever, status post G-tube malfunctioning, and right knee fracture. BRIEF HISTORY: This is a 61-year-old female from [place] , presents to [facility] with history of fever, G-tube malfunctioning, diagnosed with above, admitted to the medical floor for further treatment. Currently, calm, lethargic, and nonverbal. REVIEW OF SYSTEMS: Not available. PAST MEDICAL HISTORY: Includes encephalopathy, weakness, and G-tube. PAST SURGICAL HISTORY: G-tube ALLERGIES: Denies. MEDICATIONS: Medical management include famotidine, morphine sulfate, ibuprofen, donepezil, Zyprexa, Tylenol, Ativan, and cefepime. SOCIAL HISTORY: No smoking. No alcohol. No intravenous drug use. FAMILY HISTORY: Noncontributory. PHYSICAL EXAMINATION: GENERAL: Lethargic and nonverbal. VITAL SIGNS: Temperature is 98, pulse 114, respirations 20, and blood pressure 144/70. CARDIOVASCULAR: No murmur. LUNGS: Poor air exchange. ABDOMEN: Bowel sounds are positive. Nontender and nondistended. G-tube in place. EXTREMITIES: No cyanosis, clubbing, or edema. NEUROLOGIC: The patient moves all extremities, slightly confused, not following directions. LABORATORY DATA: Labs at this time show white count of 18, otherwise CBC is normal. Sodium 147, glucose 121. Urinalysis show 1+ occult blood, 2+ protein. ASSESSMENT: 1. Fever. 2. Sepsis. 3. Gastrostomy tube malfunction. 4. Encephalopathy. 5. Right knee fracture. PLAN: Continue premedications. OT/PT and dietary evaluation. IV fluids. CBC and BMP in the morning. Antibiotics per Infectious Disease. Dr. Cannon, Dr. Clarke, Dr. Crane, Dr. Stern, and Dr. Garcia to consult. We will continue to follow the patient medically. Justyn Mcpherson D.O. DR: RADHA JOB#: [id number] CC:
[2016-11-15] MEDS: Morphine Sulfate 2mg/ml Inj IVP PRN ×3 (00:03→21:39)
[2016-11-15 00:27] VITALS: BP 150/73
[2016-11-15 04:06] VITALS: BP 148/76
[2016-11-15] MEDS: Cefepime HCl 1 GM in D5W 55 ML IV SCH (05:06)
[2016-11-15 08:00] VITALS: BP 147/78
[2016-11-15 08:22] LABS: BASOPHILS % (AUTO) 0.5 % (0.0-2.0); EOSINOPHILS % (AUTO) 0.1 % (0.0-3.0); MEAN CORPUSCULAR HEMOGLOBIN 31.5 PG (27.0-31.0); MEAN CORPUSCULAR VOLUME 95 FL (80-99); MEAN PLATELET VOLUME 10.1 FL (6.5-10.1); MONOCYTES % (AUTO) 5.3 % (1.0-10.0); NEUTROPHILS % (AUTO) 80.1 % (45.0-75.0); PLATELET COUNT 160 K/UL (150-450); RED BLOOD COUNT 3.63 M/UL (4.20-5.40); RED CELL DISTRIBUTION WIDTH 13.3 % (11.6-14.8); WHITE BLOOD COUNT 15.7 K/UL (4.8-10.8)
[2016-11-15 08:42] LABS: ANION GAP 13 (5-15); CARBON DIOXIDE 26 mEQ/L (20-30); CHLORIDE 103 mEQ/L (98-107); CREATININE 0.8 mg/dL (0.5-0.9); GLOMERULAR FILTRATION RATE > 60 mL/min (>60); HEMOLYSIS 2; PHOSPHORUS 2.4 mg/dL (2.5-4.8); POTASSIUM 3.9 mEQ/L (3.4-4.9); SODIUM 142 mEQ/L (135-145)
[2016-11-15 08:47] LABS: ANION GAP 12 (5-15); CARBON DIOXIDE 27 mEQ/L (20-30); CHLORIDE 104 mEQ/L (98-107); CREATININE 0.8 mg/dL (0.5-0.9); GLOMERULAR FILTRATION RATE > 60 mL/min (>60); HEMOLYSIS 3; MAGNESIUM 2.1 mg/dL (1.7-2.5); POTASSIUM 3.8 mEQ/L (3.4-4.9); SODIUM 143 mEQ/L (135-145)
[2016-11-15] MEDS: Famotidine 20 MG/ 2ML VIAL IVP SCH ×2 (09:27→21:35)
[2016-11-15] MEDS: Donepezil 5mg Tab ORAL SCH (09:27)
[2016-11-15] MEDS: OLANZapine 2.5mg tab GT SCH (09:27)
[2016-11-15] MEDS: Heparin 5000 units/ml inj SUBQ SCH ×2 (09:28→21:36)
--- NOTE | 2016-11-15 10:37 | GI Progress Note ---
Assessment/Plan Problems: (1) Malfunction of gastrostomy tube ICD Codes: K94.23 - Gastrostomy malfunction SNOMED: 042118390 (2) Severe malnutrition ICD Codes: E43 - Unspecified severe protein-calorie malnutrition SNOMED: 81121170 (3) Leukocytosis ICD Codes: D72.829 - Elevated white blood cell count, unspecified SNOMED: 024557034 (4) Gastritis ICD Codes: K29.70 - Gastritis, unspecified, without bleeding SNOMED: 1774879 (5) Anemia ICD Codes: D64.9 - Anemia, unspecified SNOMED: 016554056 (6) Weight loss ICD Codes: R63.4 - Abnormal weight loss SNOMED: 36110108 Status: unchanged Status Narrative Discussed with Dr. Crane. Assessment/Plan cdiff negative GT malfunction >> KUB placement confirmation >> DO NOT USE GT - possible GT replacement - GT to be fixed today hold GTFs GT care daily / prn honey thick diet for oral gratification H2 fu labs abx recommend ortho consult for R knee Subjective Subjective limited Objective Last 24 Hour Vital Signs Date Time Temp Pulse Resp B/P Pulse Ox O2 Delivery O2 Flow Rate FiO2 11/15/16 08:00 99.5 121 17 147/78 98 Nasal Cannula 2.0 120 11/15/16 07:21 100 Nasal Cannula 2.0 28 11/15/16 07:21 Nasal Cannula 2.0 28 11/15/16 07:21 117 17 Nasal Cannula 2.0 28 11/15/16 04:06 98.4 119 17 148/76 100 Nasal Cannula 2.0 11/15/16 04:00 114 11/15/16 00:27 98.8 110 19 150/73 98 Nasal Cannula 2.0 11/15/16 00:00 120 11/14/16 21:24 97.9 11/14/16 20:00 97.9 133 19 146/78 95 Room Air 11/14/16 20:00 139 11/14/16 19:03 Nasal Cannula 2.0 28 11/14/16 19:03 98 Nasal Cannula 2.0 28 11/14/16 19:03 120 20 Nasal Cannula 2.0 28 11/14/16 16:00 97.9 125 20 152/82 94 Nasal Cannula 2.0 11/14/16 16:00 137 11/14/16 12:46 98.7 11/14/16 12:00 98.2 120 18 157/95 100 Nasal Cannula 3.0 112 Intake and Output 11/14/16 11/15/16 19:00 07:00 Intake Total 650 ml 55 ml Output Total 500 ml 800 ml Balance 150 ml -745 ml Intake Oral 650 ml IV Total 55 ml Output Urine Total 500 ml 800 ml # Bowel Movements 2 2 Laboratory Tests Test 11/15/16 07:50 White Blood Count 15.7 K/UL (4.8-10.8) H Red Blood Count 3.63 M/UL (4.20-5.40) L Hemoglobin 11.4 G/DL (12.0-16.0) L Hematocrit 34.6 % (37.0-47.0) L Mean Corpuscular Volume 95 FL (80-99) Mean Corpuscular Hemoglobin 31.5 PG (27.0-31.0) H Mean Corpuscular Hemoglobin Concent 33.0 G/DL (32.0-36.0) Red Cell Distribution Width 13.3 % (11.6-14.8) Platelet Count 160 K/UL (150-450) Mean Platelet Volume 10.1 FL (6.5-10.1) Neutrophils (%) (Auto) 80.1 % (45.0-75.0) H Lymphocytes (%) (Auto) 14.0 % (20.0-45.0) L Monocytes (%) (Auto) 5.3 % (1.0-10.0) Eosinophils (%) (Auto) 0.1 % (0.0-3.0) Basophils (%) (Auto) 0.5 % (0.0-2.0) Sodium Level 143 mEQ/L (135-145) Potassium Level 3.8 mEQ/L (3.4-4.9) Chloride Level 104 mEQ/L (98-107) Carbon Dioxide Level 27 mEQ/L (20-30) Anion Gap 12 (5-15) Blood Urea Nitrogen 16 mg/dL (7-23) Creatinine 0.8 mg/dL (0.5-0.9) Estimat Glomerular Filtration Rate > 60 mL/min (>60) Glucose Level 124 mg/dL (74-106) H Calcium Level 8.0 mg/dL (8.6-10.2) L Phosphorus Level 2.4 mg/dL (2.5-4.8) L Magnesium Level 2.1 mg/dL (1.7-2.5) Albumin 2.9 g/dL (3.5-5.2) L Height (Feet): 4 Height (Inches): 11.00 Weight (Pounds): 63 General Appearance: no apparent distress, alert, thin Cardiovascular: normal rate Respiratory/Chest: normal breath sounds Abdominal Exam: normal bowel sounds, soft, GT site - c/d/i Concetta Reece N.P. Nov 15, 2016 10:37
[2016-11-15] MEDS: Vancomycin 750mg/D5W 275ml IVPB SCH ×2 (11:28)
[2016-11-15 12:00] VITALS: BP 132/82
[2016-11-15] MEDS ORDERED: Sodium Phosphate 30 MM in Sodium Chloride 550 ML IVPB ONE (12:00)
--- NOTE | 2016-11-15 14:50 | General Progress Note ---
Assessment/Plan Problem List: (1) Coffee ground emesis ICD Codes: K92.0 - Hematemesis SNOMED: 40098948 (2) Sepsis ICD Codes: A41.9 - Sepsis, unspecified organism SNOMED: 10072034 Qualifiers: Qualified Codes: A41.9 - Sepsis, unspecified organism (3) Malfunction of gastrostomy tube ICD Codes: K94.23 - Gastrostomy malfunction SNOMED: 424242726 (4) Episode of generalized weakness ICD Codes: R53.1 - Weakness SNOMED: 84830592 (5) Physical retardation ICD Codes: R62.52 - Short stature (child) SNOMED: 404108745 (6) Leukocytosis ICD Codes: D72.829 - Elevated white blood cell count, unspecified SNOMED: 953131023 Status: stable, progressing, tolerating diet Assessment/Plan ot pt diet abx gi f/u cbc bmp am Subjective Constitutional: Reports: weakness Allergies: Coded Allergies: No Known Allergies (Unverified , 05/30/16) All Systems: reviewed and negative except above Subjective confused in bed Objective Last 24 Hour Vital Signs Date Time Temp Pulse Resp B/P Pulse Ox O2 Delivery O2 Flow Rate FiO2 11/15/16 14:16 99.3 11/15/16 12:00 99.3 98 17 132/82 96 Room Air 96 11/15/16 11:26 128 11/15/16 08:00 99.5 121 17 147/78 98 Nasal Cannula 2.0 120 11/15/16 07:42 115 11/15/16 07:21 100 Nasal Cannula 2.0 28 11/15/16 07:21 Nasal Cannula 2.0 28 11/15/16 07:21 117 17 Nasal Cannula 2.0 28 11/15/16 04:06 98.4 119 17 148/76 100 Nasal Cannula 2.0 11/15/16 04:00 114 11/15/16 00:27 98.8 110 19 150/73 98 Nasal Cannula 2.0 11/15/16 00:00 120 11/14/16 21:24 97.9 11/14/16 20:00 97.9 133 19 146/78 95 Room Air 11/14/16 20:00 139 11/14/16 19:03 Nasal Cannula 2.0 28 11/14/16 19:03 98 Nasal Cannula 2.0 28 11/14/16 19:03 120 20 Nasal Cannula 2.0 28 11/14/16 16:00 97.9 125 20 152/82 94 Nasal Cannula 2.0 11/14/16 16:00 137 Intake and Output 11/14/16 11/15/16 19:00 07:00 Intake Total 650 ml 55 ml Output Total 500 ml 800 ml Balance 150 ml -745 ml Intake Oral 650 ml IV Total 55 ml Output Urine Total 500 ml 800 ml # Bowel Movements 2 2 Laboratory Tests 11/15/16 07:50: White Blood Count 15.7H, Red Blood Count 3.63L, Hemoglobin 11.4L, Hematocrit 34.6L, Mean Corpuscular Volume 95, Mean Corpuscular Hemoglobin 31.5H, Mean Corpuscular Hemoglobin Concent 33.0, Red Cell Distribution Width 13.3, Platelet Count 160, Mean Platelet Volume 10.1, Neutrophils (%) (Auto) 80.1H, Lymphocytes (%) (Auto) 14.0L, Monocytes (%) (Auto) 5.3, Eosinophils (%) (Auto) 0.1, Basophils (%) (Auto) 0.5, Sodium Level 143, Potassium Level 3.8, Chloride Level 104, Carbon Dioxide Level 27, Anion Gap 12, Blood Urea Nitrogen 16, Creatinine 0.8, Estimat Glomerular Filtration Rate > 60, Glucose Level 124H, Calcium Level 8.0L, Phosphorus Level 2.4L, Magnesium Level 2.1, Albumin 2.9L Height (Feet): 4 Height (Inches): 11.00 Weight (Pounds): 63 General Appearance: lethargic EENT: normal ENT inspection Neck: normal alignment Cardiovascular: normal peripheral pulses, normal rate, regular rhythm Respiratory/Chest: chest wall non-tender, lungs clear, normal breath sounds Abdomen: normal bowel sounds, non tender, soft Extremities: normal inspection Edema: no edema noted Arm (L), no edema noted Arm (R), no edema noted Leg (L), no edema noted Leg (R), no edema noted Pedal (L), no edema noted Pedal (R), no edema noted Generalized Neurologic: motor weakness Skin: normal pigmentation, warm/dry MONIK BEASLEY Nov 15, 2016 14:50
--- NOTE | 2016-11-15 15:11 | Pulmonology Progress Note ---
Assessment/Plan Problems: (1) Tachycardia (2) Encounter for PEG (percutaneous endoscopic gastrostomy) (3) Malfunction of gastrostomy tube (4) Physical retardation Assessment/Plan on cefepime and vanco check cultures check electrolytes tachycardia is chronic ortho evaluation Subjective ROS Limited/Unobtainable: No Constitutional: Reports: no symptoms HEENT: Repors: no symptoms Allergies: Coded Allergies: No Known Allergies (Unverified , 05/30/16) Objective Last 24 Hour Vital Signs Date Time Temp Pulse Resp B/P Pulse Ox O2 Delivery O2 Flow Rate FiO2 11/15/16 14:16 99.3 11/15/16 12:00 99.3 98 17 132/82 96 Room Air 96 11/15/16 11:26 128 11/15/16 08:00 99.5 121 17 147/78 98 Nasal Cannula 2.0 120 11/15/16 07:42 115 11/15/16 07:21 100 Nasal Cannula 2.0 28 11/15/16 07:21 Nasal Cannula 2.0 28 11/15/16 07:21 117 17 Nasal Cannula 2.0 28 11/15/16 04:06 98.4 119 17 148/76 100 Nasal Cannula 2.0 11/15/16 04:00 114 11/15/16 00:27 98.8 110 19 150/73 98 Nasal Cannula 2.0 11/15/16 00:00 120 11/14/16 21:24 97.9 11/14/16 20:00 97.9 133 19 146/78 95 Room Air 11/14/16 20:00 139 11/14/16 19:03 Nasal Cannula 2.0 28 11/14/16 19:03 98 Nasal Cannula 2.0 28 11/14/16 19:03 120 20 Nasal Cannula 2.0 28 11/14/16 16:00 97.9 125 20 152/82 94 Nasal Cannula 2.0 11/14/16 16:00 137 Intake and Output 11/14/16 11/15/16 19:00 07:00 Intake Total 650 ml 55 ml Output Total 500 ml 800 ml Balance 150 ml -745 ml Intake Oral 650 ml IV Total 55 ml Output Urine Total 500 ml 800 ml # Bowel Movements 2 2 General Appearance: WD/WN HEENT: atraumatic Respiratory/Chest: chest wall non-tender, lungs clear Cardiovascular: normal peripheral pulses, regular rhythm Abdomen: normal bowel sounds, no organomegaly Microbiology Date/Time Source Procedure Growth Status 11/13/16 17:52 Blood Blood Culture - Preliminary NO GROWTH AFTER 24 HOURS Resulted 11/13/16 17:40 Blood Blood Culture - Preliminary NO GROWTH AFTER 24 HOURS Resulted 11/13/16 18:41 Nasal Nares MRSA Culture - Final Staphylococcus Aureus - Mrsa Complete 11/13/16 18:41 Stool VRE Culture - Final Enterococcus Faecalis - Vre Complete 11/13/16 18:13 Stool Clostridium difficile Toxin Assay - Final Complete Laboratory Tests 11/15/16 07:50: White Blood Count 15.7H, Red Blood Count 3.63L, Hemoglobin 11.4L, Hematocrit 34.6L, Mean Corpuscular Volume 95, Mean Corpuscular Hemoglobin 31.5H, Mean Corpuscular Hemoglobin Concent 33.0, Red Cell Distribution Width 13.3, Platelet Count 160, Mean Platelet Volume 10.1, Neutrophils (%) (Auto) 80.1H, Lymphocytes (%) (Auto) 14.0L, Monocytes (%) (Auto) 5.3, Eosinophils (%) (Auto) 0.1, Basophils (%) (Auto) 0.5, Sodium Level 143, Potassium Level 3.8, Chloride Level 104, Carbon Dioxide Level 27, Anion Gap 12, Blood Urea Nitrogen 16, Creatinine 0.8, Estimat Glomerular Filtration Rate > 60, Glucose Level 124H, Calcium Level 8.0L, Phosphorus Level 2.4L, Magnesium Level 2.1, Albumin 2.9L Current Medications Medications (Trade) Dose Ordered Sig/Curt Route PRN Reason Start Time Stop Time Status Last Admin Dose Admin Acetaminophen (Tylenol) 650 mg Q4H PRN RECTAL Mild Pain/Temp > 100.5 11/14/16 07:45 12/14/16 07:44 11/14/16 20:54 Al Hydroxide/Mg Hydroxide (Mylanta II) 30 ml Q6H PRN ORAL dyspepsia 11/14/16 03:30 12/14/16 03:29 Albuterol/ Ipratropium 3 ml 3 ml Q4H PRN HHN Shortness of Breath 11/14/16 03:30 11/19/16 03:29 Cefepime HCl/ Dextrose (Maxipime/D5W) 55 ml @ 110 mls/hr Q24H IV 11/14/16 05:00 11/21/16 04:59 11/15/16 05:06 Donepezil HCl (Aricept) 5 mg DAILY ORAL 11/14/16 09:00 12/14/16 08:59 11/15/16 09:27 Famotidine 20 mg 20 mg Q12HR IVP 11/15/16 09:00 12/15/16 08:59 11/15/16 09:27 Heparin Sodium (Porcine) (Heparin 5000 units/ml) 5,000 units EVERY 12 HOURS SUBQ 11/14/16 09:00 12/14/16 08:59 11/15/16 09:28 Ibuprofen 600 mg 600 mg Q6H PRN ORAL Moderate Pain (Pain Scale 4-6) 11/14/16 10:30 12/14/16 10:29 Lorazepam (Ativan 2mg/ml 1ml) 1 mg Q6HR PRN IVP For Anxiety 11/14/16 07:00 11/21/16 06:59 11/14/16 07:09 Morphine Sulfate (Morphine Sulfate) 2 mg Q4H PRN IVP Severe Pain (Pain Scale 7-10) 11/14/16 10:30 11/21/16 10:29 11/15/16 13:46 Nitroglycerin (Ntg) 0.4 mg Q5M PRN SL Prn Chest Pain 11/14/16 03:30 12/14/16 03:29 Olanzapine (ZyPREXA) 2.5 mg DAILY GT 11/14/16 09:00 12/14/16 08:59 11/15/16 09:27 Ondansetron HCl (Zofran) 4 mg Q6H PRN IVP Nausea & Vomiting 11/14/16 03:30 12/14/16 03:29 11/15/16 00:02 Polyethylene Glycol (Miralax) 17 gm DAILYPRN PRN ORAL Constipation 11/14/16 03:30 12/14/16 03:29 Promethazine HCl/ Codeine (Phenergan with Codeine) 5 ml Q4H PRN ORAL For Cough 11/14/16 03:30 12/14/16 03:29 Sodium Phosphate/ Sodium Chloride (NaPO4/NS) 560 ml @ 93.333 mls/ hr ONCE ONCE IVPB 11/15/16 12:00 11/15/16 17:59 11/15/16 13:31 Temazepam (Restoril) 15 mg HSPRN PRN ORAL Insomnia 11/14/16 03:30 11/21/16 03:29 Vancomycin HCl (Vanco rx to dose) 1 ea DAILY PRN MISC Per rx protocol 11/14/16 03:30 12/14/16 03:29 Vancomycin HCl/ Dextrose (Vancomycin/D5W) 275 ml @ 183.708 mls/hr Q24H IVPB 11/15/16 12:00 11/20/16 11:59 11/15/16 11:28 FRANCESCO BO Nov 15, 2016 15:11
[2016-11-15] MEDS ORDERED: Tubing IV Secondary IV ONE (15:44)
[2016-11-15] MEDS ORDERED: NS 275ml ONE (15:44)
[2016-11-15 16:00] VITALS: BP_SYST 132; BP_SYST 138; BP_SYST 140; BP_DIAS 75; BP_DIAS 80; BP_DIAS 82
--- NOTE | 2016-11-15 16:47 | Infectious Diseases Prog Note ---
Assessment/Plan Problems: (1) Sepsis Assessment & Plan: had fever while on vancomycin and cefepime, will add flagyl , monitor blood culture, suspect due to her fracture (2) Encounter for PEG (percutaneous endoscopic gastrostomy) Assessment & Plan: may need replacement , GI is consulted (3) Leukocytosis Assessment & Plan: suspect due to sepsis VS dehydration , await blood culture , continue wide spectrum antibiotics (4) Tibial plateau fracture, right Assessment & Plan: S/P cast placement, ortho consulted Subjective ROS Limited/Unobtainable: Yes Allergies: Coded Allergies: No Known Allergies (Unverified , 05/30/16) Subjective she is demented, up in bed, awake , not in distress Objective Vital Signs Last 24 Hour Vital Signs Date Time Temp Pulse Resp B/P Pulse Ox O2 Delivery O2 Flow Rate FiO2 11/15/16 14:16 99.3 11/15/16 12:00 99.3 98 17 132/82 96 Room Air 96 11/15/16 11:26 128 11/15/16 08:00 99.5 121 17 147/78 98 Nasal Cannula 2.0 120 11/15/16 07:42 115 11/15/16 07:21 100 Nasal Cannula 2.0 28 11/15/16 07:21 Nasal Cannula 2.0 28 11/15/16 07:21 117 17 Nasal Cannula 2.0 28 11/15/16 04:06 98.4 119 17 148/76 100 Nasal Cannula 2.0 11/15/16 04:00 114 11/15/16 00:27 98.8 110 19 150/73 98 Nasal Cannula 2.0 11/15/16 00:00 120 11/14/16 21:24 97.9 11/14/16 20:00 97.9 133 19 146/78 95 Room Air 11/14/16 20:00 139 11/14/16 19:03 Nasal Cannula 2.0 28 11/14/16 19:03 98 Nasal Cannula 2.0 28 11/14/16 19:03 120 20 Nasal Cannula 2.0 28 Height (Feet): 4 Height (Inches): 11.00 Weight (Pounds): 63 General Appearance: WD/WN, no acute distress HEENT: normocephalic, atraumatic, anicteric, mucous membranes moist Respiratory/Chest: chest wall non-tender, lungs clear, normal breath sounds, no respiratory distress, no accessory muscle use Cardiovascular: normal peripheral pulses, normal rate, regular rhythm Abdomen: normal bowel sounds, soft, non tender, no organomegaly, non distended , no mass, other - G tube site covered with dressing Extremities: no cyanosis, no clubbing, other - right leg in cast Skin: no rash, no lesions Microbiology Date/Time Source Procedure Growth Status 11/13/16 17:52 Blood Blood Culture - Preliminary NO GROWTH AFTER 24 HOURS Resulted 11/13/16 17:40 Blood Blood Culture - Preliminary NO GROWTH AFTER 24 HOURS Resulted 11/13/16 18:41 Nasal Nares MRSA Culture - Final Staphylococcus Aureus - Mrsa Complete 11/13/16 18:41 Stool VRE Culture - Final Enterococcus Faecalis - Vre Complete 11/13/16 18:13 Stool Clostridium difficile Toxin Assay - Final Complete Laboratory Tests Test 11/15/16 07:50 White Blood Count 15.7 K/UL (4.8-10.8) H Red Blood Count 3.63 M/UL (4.20-5.40) L Hemoglobin 11.4 G/DL (12.0-16.0) L Hematocrit 34.6 % (37.0-47.0) L Mean Corpuscular Volume 95 FL (80-99) Mean Corpuscular Hemoglobin 31.5 PG (27.0-31.0) H Mean Corpuscular Hemoglobin Concent 33.0 G/DL (32.0-36.0) Red Cell Distribution Width 13.3 % (11.6-14.8) Platelet Count 160 K/UL (150-450) Mean Platelet Volume 10.1 FL (6.5-10.1) Neutrophils (%) (Auto) 80.1 % (45.0-75.0) H Lymphocytes (%) (Auto) 14.0 % (20.0-45.0) L Monocytes (%) (Auto) 5.3 % (1.0-10.0) Eosinophils (%) (Auto) 0.1 % (0.0-3.0) Basophils (%) (Auto) 0.5 % (0.0-2.0) Sodium Level 143 mEQ/L (135-145) Potassium Level 3.8 mEQ/L (3.4-4.9) Chloride Level 104 mEQ/L (98-107) Carbon Dioxide Level 27 mEQ/L (20-30) Anion Gap 12 (5-15) Blood Urea Nitrogen 16 mg/dL (7-23) Creatinine 0.8 mg/dL (0.5-0.9) Estimat Glomerular Filtration Rate > 60 mL/min (>60) Glucose Level 124 mg/dL (74-106) H Calcium Level 8.0 mg/dL (8.6-10.2) L Phosphorus Level 2.4 mg/dL (2.5-4.8) L Magnesium Level 2.1 mg/dL (1.7-2.5) Albumin 2.9 g/dL (3.5-5.2) L Current Medications Medications (Trade) Dose Ordered Sig/Curt Route PRN Reason Start Time Stop Time Status Last Admin Dose Admin Acetaminophen (Tylenol) 650 mg Q4H PRN RECTAL Mild Pain/Temp > 100.5 11/14/16 07:45 12/14/16 07:44 11/14/16 20:54 Al Hydroxide/Mg Hydroxide (Mylanta II) 30 ml Q6H PRN ORAL dyspepsia 11/14/16 03:30 12/14/16 03:29 Albuterol/ Ipratropium 3 ml 3 ml Q4H PRN HHN Shortness of Breath 11/14/16 03:30 11/19/16 03:29 Cefepime HCl/ Dextrose (Maxipime/D5W) 55 ml @ 110 mls/hr Q24H IV 11/14/16 05:00 11/21/16 04:59 11/15/16 05:06 Donepezil HCl (Aricept) 5 mg DAILY ORAL 11/14/16 09:00 12/14/16 08:59 11/15/16 09:27 Famotidine 20 mg 20 mg Q12HR IVP 11/15/16 09:00 12/15/16 08:59 11/15/16 09:27 Heparin Sodium (Porcine) (Heparin 5000 units/ml) 5,000 units EVERY 12 HOURS SUBQ 11/14/16 09:00 12/14/16 08:59 11/15/16 09:28 Ibuprofen 600 mg 600 mg Q6H PRN ORAL Moderate Pain (Pain Scale 4-6) 11/14/16 10:30 12/14/16 10:29 Lorazepam (Ativan 2mg/ml 1ml) 1 mg Q6HR PRN IVP For Anxiety 11/14/16 07:00 11/21/16 06:59 11/14/16 07:09 Morphine Sulfate (Morphine Sulfate) 2 mg Q4H PRN IVP Severe Pain (Pain Scale 7-10) 11/14/16 10:30 11/21/16 10:29 11/15/16 13:46 Nitroglycerin (Ntg) 0.4 mg Q5M PRN SL Prn Chest Pain 11/14/16 03:30 12/14/16 03:29 Olanzapine (ZyPREXA) 2.5 mg DAILY GT 11/14/16 09:00 12/14/16 08:59 11/15/16 09:27 Ondansetron HCl (Zofran) 4 mg Q6H PRN IVP Nausea & Vomiting 11/14/16 03:30 12/14/16 03:29 11/15/16 00:02 Polyethylene Glycol (Miralax) 17 gm DAILYPRN PRN ORAL Constipation 11/14/16 03:30 12/14/16 03:29 Promethazine HCl/ Codeine (Phenergan with Codeine) 5 ml Q4H PRN ORAL For Cough 11/14/16 03:30 12/14/16 03:29 Sodium Phosphate/ Sodium Chloride (NaPO4/NS) 560 ml @ 93.333 mls/ hr ONCE ONCE IVPB 11/15/16 12:00 11/15/16 17:59 11/15/16 13:31 Temazepam (Restoril) 15 mg HSPRN PRN ORAL Insomnia 11/14/16 03:30 11/21/16 03:29 Vancomycin HCl (Vanco rx to dose) 1 ea DAILY PRN MISC Per rx protocol 11/14/16 03:30 12/14/16 03:29 Vancomycin HCl/ Dextrose (Vancomycin/D5W) 275 ml @ 183.708 mls/hr Q24H IVPB 11/15/16 12:00 11/20/16 11:59 11/15/16 11:28 Fede Cannon M.D. Nov 15, 2016 16:47
[2016-11-15] MEDS: LORazepam Inj 2mg/ml 1ml IVP PRN (17:00)
[2016-11-15] MEDS: metroNIDAZOLE 500mg 100 ML IVPB SCH ×2 (18:12→23:38)
[2016-11-15 20:00] VITALS: BP 127/73
--- NOTE | 2016-11-15 20:58 | Consultation ---
DATE OF CONSULTATION: 11/15/2016 ORTHOPEDIC CONSULTATION CONSULTING PHYSICIAN: Levy Stern M.D. REFERRING PHYSICIAN: Justyn Mcpherson D.O. CHIEF COMPLAINT: Right leg pain. HISTORY OF PRESENT ILLNESS: The patient is a 61-year-old female, who presents with complaints of right knee pain. She resides in a nursing facility, has severe contractures and is bed ridden. She was noted to have a fracture of the distal femur. PAST MEDICAL HISTORY: Reviewed from the intake chart. PAST SURGICAL HISTORY: Reviewed from the intake chart. MEDICATIONS: Reviewed from the intake chart. PHYSICAL EXAMINATION: EXTREMITIES/MUSCULOSKELETAL: Severe contracture of both the right and left leg. Right leg is in a splint and remains in. It is limited secondary to the patient's discomfort and severe contractures. IMAGING STUDIES: Show extremely distal supracondylar femur fractures with osteoporosis. ASSESSMENT AND PLAN: 1. Right supracondylar femur fracture. 2. Osteoporosis. 3. Severe knee contractures. I discussed this point. She is not really a good surgical candidate. She is bed ridden and she has severe contractures that explains some of the osteoporotic distal femur fracture. At this point, I recommended splint immobilization. She needs to make sure that there is no secondary ulcers that developed on the left leg. May take nearly 6 to 12 weeks for this to heal. Levy Stern M.D. DR: FORTINO JOB#: [id number] CC:
[2016-11-16] VITALS: BP 124/68
[2016-11-16] MEDS: Morphine Sulfate 2mg/ml Inj IVP PRN ×2 (03:59→12:55)
[2016-11-16 04:00] VITALS: BP 148/87
[2016-11-16] MEDS: Cefepime HCl 1 GM in D5W 55 ML IV SCH (04:40)
[2016-11-16] MEDS: metroNIDAZOLE 500mg 100 ML IVPB SCH ×3 (05:47→21:49)
[2016-11-16 07:10] LABS: BASOPHILS % (AUTO) 0.5 % (0.0-2.0); EOSINOPHILS % (AUTO) 1.3 % (0.0-3.0); LYMPHOCYTES % (AUTO) 16.9 % (20.0-45.0); MEAN CORPUSCULAR HEMOGLOBIN 30.9 PG (27.0-31.0); MEAN CORPUSCULAR HGB CONC 32.4 G/DL (32.0-36.0); MEAN CORPUSCULAR VOLUME 95 FL (80-99); MEAN PLATELET VOLUME 9.8 FL (6.5-10.1); NEUTROPHILS % (AUTO) 76.4 % (45.0-75.0); PLATELET COUNT 134 K/UL (150-450); RED BLOOD COUNT 2.98 M/UL (4.20-5.40); WHITE BLOOD COUNT 12.7 K/UL (4.8-10.8)
[2016-11-16 07:44] LABS: ANION GAP 9 (5-15); CALCIUM 7.9 mg/dL (8.6-10.2); CARBON DIOXIDE 28 mEQ/L (20-30); CHLORIDE 108 mEQ/L (98-107); CREATININE 0.9 mg/dL (0.5-0.9); GLOMERULAR FILTRATION RATE > 60 mL/min (>60); HEMOLYSIS 2; POTASSIUM 4.1 mEQ/L (3.4-4.9); SODIUM 145 mEQ/L (135-145)
[2016-11-16 08:00] VITALS: BP 119/94
[2016-11-16] MEDS: Famotidine 20 MG/ 2ML VIAL IVP SCH (08:38)
[2016-11-16] MEDS: OLANZapine 2.5mg tab GT SCH (08:38)
[2016-11-16] MEDS: Donepezil 5mg Tab ORAL SCH (08:38)
[2016-11-16] MEDS: Heparin 5000 units/ml inj SUBQ SCH ×2 (08:39→21:00)
--- NOTE | 2016-11-16 11:20 | GI Progress Note ---
Assessment/Plan Problems: (1) Malfunction of gastrostomy tube ICD Codes: K94.23 - Gastrostomy malfunction SNOMED: 680119300 (2) Severe malnutrition ICD Codes: E43 - Unspecified severe protein-calorie malnutrition SNOMED: 23709128 (3) Leukocytosis ICD Codes: D72.829 - Elevated white blood cell count, unspecified SNOMED: 356104431 (4) Gastritis ICD Codes: K29.70 - Gastritis, unspecified, without bleeding SNOMED: 5350958 (5) Anemia ICD Codes: D64.9 - Anemia, unspecified SNOMED: 376400798 (6) Weight loss ICD Codes: R63.4 - Abnormal weight loss SNOMED: 15358938 Status: stable, progressing Status Narrative Discussed with Dr. Crane. Assessment/Plan cdiff negative GT malfunction >> GT stopper added >> KUB confirmation - pull GT taut, push stopper firmly against abdomen. GT care daily / prn honey thick diet for oral gratification H2 fu labs abx ortho consult for R knee Subjective Subjective limited Objective Last 24 Hour Vital Signs Date Time Temp Pulse Resp B/P Pulse Ox O2 Delivery O2 Flow Rate FiO2 11/16/16 08:42 113 11/16/16 08:00 97.9 112 17 119/94 94 Nasal Cannula 2.0 11/16/16 07:34 109 18 Nasal Cannula 2.0 11/16/16 06:33 Nasal Cannula 2.0 11/16/16 06:32 95 Nasal Cannula 2.0 11/16/16 04:00 97.5 108 18 148/87 100 Nasal Cannula 3.0 11/16/16 04:00 117 11/16/16 00:00 96.3 115 18 124/68 95 Nasal Cannula 3.0 11/16/16 00:00 113 11/15/16 22:07 Nasal Cannula 3.0 32 11/15/16 22:07 97 Nasal Cannula 3.0 32 11/15/16 22:06 130 17 Nasal Cannula 3.0 32 11/15/16 20:00 100.4 130 18 127/73 Nasal Cannula 3.0 97 11/15/16 16:00 99.3 98 17 132/82 96 Room Air 120 11/15/16 16:00 123 11/15/16 16:00 97.3 125 19 140/75 97 Room Air 11/15/16 16:00 Room Air 11/15/16 14:16 99.3 11/15/16 12:00 99.3 98 17 132/82 96 Room Air 96 11/15/16 11:26 128 Intake and Output 11/15/16 11/16/16 19:00 07:00 Intake Total 489.333 ml 315 ml Output Total 260 ml 300 ml Balance 229.333 ml 15 ml Intake Oral 120 ml 60 ml IV Total 369.333 ml 255 ml Output Urine Total 260 ml 300 ml # Bowel Movements 2 Laboratory Tests Test 11/16/16 05:05 White Blood Count 12.7 K/UL (4.8-10.8) H Red Blood Count 2.98 M/UL (4.20-5.40) L Hemoglobin 9.2 G/DL (12.0-16.0) L Hematocrit 28.4 % (37.0-47.0) L Mean Corpuscular Volume 95 FL (80-99) Mean Corpuscular Hemoglobin 30.9 PG (27.0-31.0) Mean Corpuscular Hemoglobin Concent 32.4 G/DL (32.0-36.0) Red Cell Distribution Width 13.0 % (11.6-14.8) Platelet Count 134 K/UL (150-450) L Mean Platelet Volume 9.8 FL (6.5-10.1) Neutrophils (%) (Auto) 76.4 % (45.0-75.0) H Lymphocytes (%) (Auto) 16.9 % (20.0-45.0) L Monocytes (%) (Auto) 5.0 % (1.0-10.0) Eosinophils (%) (Auto) 1.3 % (0.0-3.0) Basophils (%) (Auto) 0.5 % (0.0-2.0) Sodium Level 145 mEQ/L (135-145) Potassium Level 4.1 mEQ/L (3.4-4.9) Chloride Level 108 mEQ/L (98-107) H Carbon Dioxide Level 28 mEQ/L (20-30) Anion Gap 9 (5-15) Blood Urea Nitrogen 17 mg/dL (7-23) Creatinine 0.9 mg/dL (0.5-0.9) Estimat Glomerular Filtration Rate > 60 mL/min (>60) Glucose Level 114 mg/dL (74-106) H Calcium Level 7.9 mg/dL (8.6-10.2) L Phosphorus Level 3.0 mg/dL (2.5-4.8) Height (Feet): 4 Height (Inches): 11.00 Weight (Pounds): 63 General Appearance: no apparent distress, alert Cardiovascular: normal rate Respiratory/Chest: normal breath sounds, no respiratory distress Abdominal Exam: normal bowel sounds, non tender, soft, GT site - c/d/i Concetta Reece N.P. Nov 16, 2016 11:20
[2016-11-16 12:00] VITALS: BP 122/90
[2016-11-16] MEDS: Vancomycin 750mg/D5W 275ml IVPB SCH ×2 (12:07)
--- NOTE | 2016-11-16 13:17 | General Progress Note ---
Assessment/Plan Problem List: (1) Coffee ground emesis ICD Codes: K92.0 - Hematemesis SNOMED: 38264957 (2) Sepsis ICD Codes: A41.9 - Sepsis, unspecified organism SNOMED: 69232289 Qualifiers: Qualified Codes: A41.9 - Sepsis, unspecified organism (3) Malfunction of gastrostomy tube ICD Codes: K94.23 - Gastrostomy malfunction SNOMED: 958668253 (4) Episode of generalized weakness ICD Codes: R53.1 - Weakness SNOMED: 69510027 (5) Physical retardation ICD Codes: R62.52 - Short stature (child) SNOMED: 934049362 (6) Leukocytosis ICD Codes: D72.829 - Elevated white blood cell count, unspecified SNOMED: 075904984 Status: stable, progressing, tolerating diet Assessment/Plan ot pt diet abx gi f/u cbc bmp am Subjective Constitutional: Reports: weakness Allergies: Coded Allergies: No Known Allergies (Unverified , 05/30/16) All Systems: reviewed and negative except above Subjective confused in bed Objective Last 24 Hour Vital Signs Date Time Temp Pulse Resp B/P Pulse Ox O2 Delivery O2 Flow Rate FiO2 11/16/16 08:42 113 11/16/16 08:00 97.9 112 17 119/94 94 Nasal Cannula 2.0 11/16/16 07:34 109 18 Nasal Cannula 2.0 11/16/16 06:33 Nasal Cannula 2.0 11/16/16 06:32 95 Nasal Cannula 2.0 11/16/16 04:00 97.5 108 18 148/87 100 Nasal Cannula 3.0 11/16/16 04:00 117 11/16/16 00:00 96.3 115 18 124/68 95 Nasal Cannula 3.0 11/16/16 00:00 113 11/15/16 22:07 Nasal Cannula 3.0 32 11/15/16 22:07 97 Nasal Cannula 3.0 32 11/15/16 22:06 130 17 Nasal Cannula 3.0 32 11/15/16 20:00 100.4 130 18 127/73 Nasal Cannula 3.0 97 11/15/16 16:00 99.3 98 17 132/82 96 Room Air 120 11/15/16 16:00 123 11/15/16 16:00 97.3 125 19 140/75 97 Room Air 11/15/16 16:00 Room Air 11/15/16 14:16 99.3 Intake and Output 11/15/16 11/16/16 19:00 07:00 Intake Total 489.333 ml 315 ml Output Total 260 ml 300 ml Balance 229.333 ml 15 ml Intake Oral 120 ml 60 ml IV Total 369.333 ml 255 ml Output Urine Total 260 ml 300 ml # Bowel Movements 2 Laboratory Tests 11/16/16 05:05: White Blood Count 12.7H, Red Blood Count 2.98L, Hemoglobin 9.2L, Hematocrit 28.4L, Mean Corpuscular Volume 95, Mean Corpuscular Hemoglobin 30.9, Mean Corpuscular Hemoglobin Concent 32.4, Red Cell Distribution Width 13.0, Platelet Count 134L, Mean Platelet Volume 9.8, Neutrophils (%) (Auto) 76.4H, Lymphocytes (%) (Auto) 16.9L, Monocytes (%) (Auto) 5.0, Eosinophils (%) (Auto) 1.3, Basophils (%) (Auto) 0.5, Sodium Level 145, Potassium Level 4.1, Chloride Level 108H, Carbon Dioxide Level 28, Anion Gap 9, Blood Urea Nitrogen 17, Creatinine 0.9, Estimat Glomerular Filtration Rate > 60, Glucose Level 114H, Calcium Level 7.9L, Phosphorus Level 3.0 Height (Feet): 4 Height (Inches): 11.00 Weight (Pounds): 63 General Appearance: lethargic EENT: normal ENT inspection Neck: normal alignment Cardiovascular: normal peripheral pulses, normal rate, regular rhythm Respiratory/Chest: chest wall non-tender, lungs clear, decreased breath sounds Abdomen: normal bowel sounds, non tender, soft Extremities: normal inspection Edema: no edema noted Arm (L), no edema noted Arm (R), no edema noted Leg (L), no edema noted Leg (R), no edema noted Pedal (L), no edema noted Pedal (R), no edema noted Generalized Neurologic: motor weakness Skin: normal pigmentation, warm/dry MONIK BEASLEY Nov 16, 2016 13:17
--- NOTE | 2016-11-16 13:37 | Diagnostic Imaging Report ---
Indication: Evaluation of the jejunostomy tube placement Technique: Supine view of the abdomen after water-soluble contrast injection into jejunostomy tube Comparison: 11/14/2016 Findings: Previously demonstrated jejunostomy tube has been retracted, tip now projecting in the expected region of the proximal jejunum just beyond the ligament of Treitz. Injected contrast opacifies small bowel, which is normal in caliber. Fainter contrast from earlier studies is seen opacifying distal small bowel loops and colon. No contrast extravasation demonstrated. The stomach filled is distended with gas. This is unchanged Impression: Apparent satisfactory position of jejunostomy tube, now repositioned in the proximal jejunum Other findings as noted
--- NOTE | 2016-11-16 14:32 | Nephrology Progress Note ---
Assessment/Plan Problem List: (1) Fever (2) Malfunction of gastrostomy tube (3) Episode of generalized weakness (4) Sepsis Plan Hypernatremia - resolved- stable lytes Will monitor Lytes Continue ABX per ID Monitor H&H, transfuse as needed Adequate urine output, continue bustillo Continue pain management DVT prophylaxis Supportive care Objective Objective Last 24 Hour Vital Signs Date Time Temp Pulse Resp B/P Pulse Ox O2 Delivery O2 Flow Rate FiO2 11/16/16 12:00 97.8 120 16 122/90 99 Nasal Cannula 2.0 11/16/16 08:42 113 11/16/16 08:00 97.9 112 17 119/94 94 Nasal Cannula 2.0 11/16/16 07:34 109 18 Nasal Cannula 2.0 11/16/16 06:33 Nasal Cannula 2.0 11/16/16 06:32 95 Nasal Cannula 2.0 11/16/16 04:00 97.5 108 18 148/87 100 Nasal Cannula 3.0 11/16/16 04:00 117 11/16/16 00:00 96.3 115 18 124/68 95 Nasal Cannula 3.0 11/16/16 00:00 113 11/15/16 22:07 Nasal Cannula 3.0 32 11/15/16 22:07 97 Nasal Cannula 3.0 32 11/15/16 22:06 130 17 Nasal Cannula 3.0 32 11/15/16 20:00 100.4 130 18 127/73 Nasal Cannula 3.0 97 11/15/16 16:00 99.3 98 17 132/82 96 Room Air 120 11/15/16 16:00 123 11/15/16 16:00 97.3 125 19 140/75 97 Room Air 11/15/16 16:00 Room Air Intake and Output 11/15/16 11/16/16 19:00 07:00 Intake Total 489.333 ml 315 ml Output Total 260 ml 300 ml Balance 229.333 ml 15 ml Intake Oral 120 ml 60 ml IV Total 369.333 ml 255 ml Output Urine Total 260 ml 300 ml # Bowel Movements 2 Laboratory Tests 11/16/16 05:05: White Blood Count 12.7H, Red Blood Count 2.98L, Hemoglobin 9.2L, Hematocrit 28.4L, Mean Corpuscular Volume 95, Mean Corpuscular Hemoglobin 30.9, Mean Corpuscular Hemoglobin Concent 32.4, Red Cell Distribution Width 13.0, Platelet Count 134L, Mean Platelet Volume 9.8, Neutrophils (%) (Auto) 76.4H, Lymphocytes (%) (Auto) 16.9L, Monocytes (%) (Auto) 5.0, Eosinophils (%) (Auto) 1.3, Basophils (%) (Auto) 0.5, Sodium Level 145, Potassium Level 4.1, Chloride Level 108H, Carbon Dioxide Level 28, Anion Gap 9, Blood Urea Nitrogen 17, Creatinine 0.9, Estimat Glomerular Filtration Rate > 60, Glucose Level 114H, Calcium Level 7.9L, Phosphorus Level 3.0 Height (Feet): 4 Height (Inches): 11.00 Weight (Pounds): 63 General Appearance: confused, mild distress, cachetic EENT: normal ENT inspection Neck: normal alignment Cardiovascular: regular rhythm, no JVD Respiratory/Chest: decreased breath sounds Abdomen: soft, other - PEG TUBE Genitourinary/Rectal: other - Bustillo Extremities: other - cast Neurologic: disoriented Stefania Arellano N.P. Nov 16, 2016 14:32
--- NOTE | 2016-11-16 14:58 | Pulmonology Progress Note ---
Assessment/Plan Problems: (1) Tachycardia (2) Encounter for PEG (percutaneous endoscopic gastrostomy) (3) Malfunction of gastrostomy tube (4) Physical retardation Assessment/Plan on cefepime and vanco check cultures check electrolytes tachycardia is chronic ortho evaluation afebrile, improving tolerating diet Subjective ROS Limited/Unobtainable: No Interval Events: afebrile, still tachycardic, probably chronic Constitutional: Reports: no symptoms HEENT: Repors: no symptoms Respiratory: Reports: no symptoms Allergies: Coded Allergies: No Known Allergies (Unverified , 05/30/16) Objective Last 24 Hour Vital Signs Date Time Temp Pulse Resp B/P Pulse Ox O2 Delivery O2 Flow Rate FiO2 11/16/16 12:06 133 11/16/16 12:00 97.8 120 16 122/90 99 Nasal Cannula 2.0 11/16/16 08:42 113 11/16/16 08:00 97.9 112 17 119/94 94 Nasal Cannula 2.0 11/16/16 07:34 109 18 Nasal Cannula 2.0 11/16/16 06:33 Nasal Cannula 2.0 11/16/16 06:32 95 Nasal Cannula 2.0 11/16/16 04:00 97.5 108 18 148/87 100 Nasal Cannula 3.0 11/16/16 04:00 117 11/16/16 00:00 96.3 115 18 124/68 95 Nasal Cannula 3.0 11/16/16 00:00 113 11/15/16 22:07 Nasal Cannula 3.0 32 11/15/16 22:07 97 Nasal Cannula 3.0 32 11/15/16 22:06 130 17 Nasal Cannula 3.0 32 11/15/16 20:00 100.4 130 18 127/73 Nasal Cannula 3.0 97 11/15/16 16:00 99.3 98 17 132/82 96 Room Air 120 11/15/16 16:00 123 11/15/16 16:00 97.3 125 19 140/75 97 Room Air 11/15/16 16:00 Room Air Intake and Output 11/15/16 11/16/16 19:00 07:00 Intake Total 489.333 ml 315 ml Output Total 260 ml 300 ml Balance 229.333 ml 15 ml Intake Oral 120 ml 60 ml IV Total 369.333 ml 255 ml Output Urine Total 260 ml 300 ml # Bowel Movements 2 General Appearance: cachetic HEENT: normocephalic, atraumatic Respiratory/Chest: chest wall non-tender, lungs clear Breasts: no masses Cardiovascular: normal peripheral pulses Abdomen: normal bowel sounds, no organomegaly Genitourinary: normal external genitalia Extremities: no cyanosis Skin: no rash Microbiology Date/Time Source Procedure Growth Status 11/13/16 17:52 Blood Blood Culture - Preliminary NO GROWTH AFTER 48 HOURS Resulted 11/13/16 17:40 Blood Blood Culture - Preliminary NO GROWTH AFTER 48 HOURS Resulted 11/13/16 18:41 Nasal Nares MRSA Culture - Final Staphylococcus Aureus - Mrsa Complete 11/13/16 18:41 Stool VRE Culture - Final Enterococcus Faecalis - Vre Complete 11/13/16 18:13 Stool Clostridium difficile Toxin Assay - Final Complete Laboratory Tests 11/16/16 05:05: White Blood Count 12.7H, Red Blood Count 2.98L, Hemoglobin 9.2L, Hematocrit 28.4L, Mean Corpuscular Volume 95, Mean Corpuscular Hemoglobin 30.9, Mean Corpuscular Hemoglobin Concent 32.4, Red Cell Distribution Width 13.0, Platelet Count 134L, Mean Platelet Volume 9.8, Neutrophils (%) (Auto) 76.4H, Lymphocytes (%) (Auto) 16.9L, Monocytes (%) (Auto) 5.0, Eosinophils (%) (Auto) 1.3, Basophils (%) (Auto) 0.5, Sodium Level 145, Potassium Level 4.1, Chloride Level 108H, Carbon Dioxide Level 28, Anion Gap 9, Blood Urea Nitrogen 17, Creatinine 0.9, Estimat Glomerular Filtration Rate > 60, Glucose Level 114H, Calcium Level 7.9L, Phosphorus Level 3.0 Current Medications Medications (Trade) Dose Ordered Sig/Curt Route PRN Reason Start Time Stop Time Status Last Admin Dose Admin Acetaminophen (Tylenol) 650 mg Q4H PRN RECTAL Mild Pain/Temp > 100.5 11/14/16 07:45 12/14/16 07:44 11/14/16 20:54 Al Hydroxide/Mg Hydroxide (Mylanta II) 30 ml Q6H PRN ORAL dyspepsia 11/14/16 03:30 12/14/16 03:29 Albuterol/ Ipratropium 3 ml 3 ml Q4H PRN HHN Shortness of Breath 11/14/16 03:30 11/19/16 03:29 Cefepime HCl/ Dextrose (Maxipime/D5W) 55 ml @ 110 mls/hr Q24H IV 11/14/16 05:00 11/21/16 04:59 11/16/16 04:40 Donepezil HCl (Aricept) 5 mg DAILY ORAL 11/14/16 09:00 12/14/16 08:59 11/16/16 08:38 Famotidine (Pepcid I.v.) 20 mg Q24H IVP 11/17/16 09:00 12/17/16 08:59 Heparin Sodium (Porcine) (Heparin 5000 units/ml) 5,000 units EVERY 12 HOURS SUBQ 11/14/16 09:00 12/14/16 08:59 11/15/16 21:36 Ibuprofen 600 mg 600 mg Q6H PRN ORAL Moderate Pain (Pain Scale 4-6) 11/14/16 10:30 12/14/16 10:29 Lorazepam (Ativan 2mg/ml 1ml) 1 mg Q6HR PRN IVP For Anxiety 11/14/16 07:00 11/21/16 06:59 11/15/16 17:00 Metronidazole (Flagyl) 100 ml @ 100 mls/hr Q8HR IVPB 11/15/16 18:00 11/22/16 17:59 11/16/16 14:16 Morphine Sulfate (Morphine Sulfate) 3 mg Q4H PRN IVP Severe Pain (Pain Scale 7-10) 11/16/16 17:30 11/23/16 17:29 Nitroglycerin (Ntg) 0.4 mg Q5M PRN SL Prn Chest Pain 11/14/16 03:30 12/14/16 03:29 Olanzapine (ZyPREXA) 2.5 mg DAILY GT 11/14/16 09:00 12/14/16 08:59 11/16/16 08:38 Ondansetron HCl (Zofran) 4 mg Q6H PRN IVP Nausea & Vomiting 11/14/16 03:30 12/14/16 03:29 11/15/16 00:02 Polyethylene Glycol (Miralax) 17 gm DAILYPRN PRN ORAL Constipation 11/14/16 03:30 12/14/16 03:29 Promethazine HCl/ Codeine (Phenergan with Codeine) 5 ml Q4H PRN ORAL For Cough 11/14/16 03:30 12/14/16 03:29 Temazepam (Restoril) 15 mg HSPRN PRN ORAL Insomnia 11/14/16 03:30 11/21/16 03:29 Vancomycin HCl (Vanco rx to dose) 1 ea DAILY PRN MISC Per rx protocol 11/14/16 03:30 12/14/16 03:29 Vancomycin HCl 750 mg/Dextrose 275 ml @ 183.708 mls/hr Q24H IVPB 11/15/16 12:00 11/20/16 11:59 11/16/16 12:07 FRANCESCO BO Nov 16, 2016 14:58
[2016-11-16 16:00] VITALS: BP 155/84
--- NOTE | 2016-11-16 16:45 | Infectious Diseases Prog Note ---
Assessment/Plan Problems: (1) Sepsis Assessment & Plan: improving on vancomycin , cefepime, and flagyl , await blood culture (2) Encounter for PEG (percutaneous endoscopic gastrostomy) Assessment & Plan: had stop laced by GI, GI is consulted (3) Leukocytosis Assessment & Plan: improving , suspect due to sepsis VS dehydration , await blood culture, continue wide spectrum antibiotics (4) Tibial plateau fracture, right Assessment & Plan: S/P cast placement, ortho consulted Subjective ROS Limited/Unobtainable: Yes Allergies: Coded Allergies: No Known Allergies (Unverified , 05/30/16) Subjective she is demented, up in bed, awake , not in distress Objective Vital Signs Last 24 Hour Vital Signs Date Time Temp Pulse Resp B/P Pulse Ox O2 Delivery O2 Flow Rate FiO2 11/16/16 12:06 133 11/16/16 12:00 97.8 120 16 122/90 99 Nasal Cannula 2.0 11/16/16 08:42 113 11/16/16 08:00 97.9 112 17 119/94 94 Nasal Cannula 2.0 11/16/16 07:34 109 18 Nasal Cannula 2.0 11/16/16 06:33 Nasal Cannula 2.0 11/16/16 06:32 95 Nasal Cannula 2.0 11/16/16 04:00 97.5 108 18 148/87 100 Nasal Cannula 3.0 11/16/16 04:00 117 11/16/16 00:00 96.3 115 18 124/68 95 Nasal Cannula 3.0 11/16/16 00:00 113 11/15/16 22:07 Nasal Cannula 3.0 32 11/15/16 22:07 97 Nasal Cannula 3.0 32 11/15/16 22:06 130 17 Nasal Cannula 3.0 32 11/15/16 20:00 100.4 130 18 127/73 Nasal Cannula 3.0 97 Height (Feet): 4 Height (Inches): 11.00 Weight (Pounds): 63 General Appearance: WD/WN HEENT: normocephalic, atraumatic, anicteric, mucous membranes moist Respiratory/Chest: chest wall non-tender, lungs clear, normal breath sounds, no respiratory distress, no accessory muscle use Cardiovascular: normal peripheral pulses, normal rate, regular rhythm Abdomen: normal bowel sounds, soft, non tender, no organomegaly, non distended , no mass, no scars Extremities: no cyanosis, no clubbing, other - right leg cast, Microbiology Date/Time Source Procedure Growth Status 11/13/16 17:52 Blood Blood Culture - Preliminary NO GROWTH AFTER 48 HOURS Resulted 11/13/16 17:40 Blood Blood Culture - Preliminary NO GROWTH AFTER 48 HOURS Resulted 11/13/16 18:41 Nasal Nares MRSA Culture - Final Staphylococcus Aureus - Mrsa Complete 11/13/16 18:41 Stool VRE Culture - Final Enterococcus Faecalis - Vre Complete 11/13/16 18:13 Stool Clostridium difficile Toxin Assay - Final Complete Laboratory Tests Test 11/16/16 05:05 White Blood Count 12.7 K/UL (4.8-10.8) H Red Blood Count 2.98 M/UL (4.20-5.40) L Hemoglobin 9.2 G/DL (12.0-16.0) L Hematocrit 28.4 % (37.0-47.0) L Mean Corpuscular Volume 95 FL (80-99) Mean Corpuscular Hemoglobin 30.9 PG (27.0-31.0) Mean Corpuscular Hemoglobin Concent 32.4 G/DL (32.0-36.0) Red Cell Distribution Width 13.0 % (11.6-14.8) Platelet Count 134 K/UL (150-450) L Mean Platelet Volume 9.8 FL (6.5-10.1) Neutrophils (%) (Auto) 76.4 % (45.0-75.0) H Lymphocytes (%) (Auto) 16.9 % (20.0-45.0) L Monocytes (%) (Auto) 5.0 % (1.0-10.0) Eosinophils (%) (Auto) 1.3 % (0.0-3.0) Basophils (%) (Auto) 0.5 % (0.0-2.0) Sodium Level 145 mEQ/L (135-145) Potassium Level 4.1 mEQ/L (3.4-4.9) Chloride Level 108 mEQ/L (98-107) H Carbon Dioxide Level 28 mEQ/L (20-30) Anion Gap 9 (5-15) Blood Urea Nitrogen 17 mg/dL (7-23) Creatinine 0.9 mg/dL (0.5-0.9) Estimat Glomerular Filtration Rate > 60 mL/min (>60) Glucose Level 114 mg/dL (74-106) H Calcium Level 7.9 mg/dL (8.6-10.2) L Phosphorus Level 3.0 mg/dL (2.5-4.8) Current Medications Medications (Trade) Dose Ordered Sig/Curt Route PRN Reason Start Time Stop Time Status Last Admin Dose Admin Acetaminophen (Tylenol) 650 mg Q4H PRN RECTAL Mild Pain/Temp > 100.5 11/14/16 07:45 12/14/16 07:44 11/14/16 20:54 Al Hydroxide/Mg Hydroxide (Mylanta II) 30 ml Q6H PRN ORAL dyspepsia 11/14/16 03:30 12/14/16 03:29 Albuterol/ Ipratropium 3 ml 3 ml Q4H PRN HHN Shortness of Breath 11/14/16 03:30 11/19/16 03:29 Cefepime HCl/ Dextrose (Maxipime/D5W) 55 ml @ 110 mls/hr Q24H IV 11/14/16 05:00 11/21/16 04:59 11/16/16 04:40 Donepezil HCl (Aricept) 5 mg DAILY ORAL 11/14/16 09:00 12/14/16 08:59 11/16/16 08:38 Famotidine (Pepcid I.v.) 20 mg Q24H IVP 11/17/16 09:00 12/17/16 08:59 Heparin Sodium (Porcine) (Heparin 5000 units/ml) 5,000 units EVERY 12 HOURS SUBQ 11/14/16 09:00 12/14/16 08:59 11/15/16 21:36 Ibuprofen 600 mg 600 mg Q6H PRN ORAL Moderate Pain (Pain Scale 4-6) 11/14/16 10:30 12/14/16 10:29 Lorazepam (Ativan 2mg/ml 1ml) 1 mg Q6HR PRN IVP For Anxiety 11/14/16 07:00 11/21/16 06:59 11/15/16 17:00 Metronidazole (Flagyl) 100 ml @ 100 mls/hr Q8HR IVPB 11/15/16 18:00 11/22/16 17:59 11/16/16 14:16 Morphine Sulfate (Morphine Sulfate) 3 mg Q4H PRN IVP Severe Pain (Pain Scale 7-10) 11/16/16 17:30 11/23/16 17:29 Nitroglycerin (Ntg) 0.4 mg Q5M PRN SL Prn Chest Pain 11/14/16 03:30 12/14/16 03:29 Olanzapine (ZyPREXA) 2.5 mg DAILY GT 11/14/16 09:00 12/14/16 08:59 11/16/16 08:38 Ondansetron HCl (Zofran) 4 mg Q6H PRN IVP Nausea & Vomiting 11/14/16 03:30 12/14/16 03:29 11/15/16 00:02 Polyethylene Glycol (Miralax) 17 gm DAILYPRN PRN ORAL Constipation 11/14/16 03:30 12/14/16 03:29 Promethazine HCl/ Codeine (Phenergan with Codeine) 5 ml Q4H PRN ORAL For Cough 11/14/16 03:30 12/14/16 03:29 Temazepam (Restoril) 15 mg HSPRN PRN ORAL Insomnia 11/14/16 03:30 11/21/16 03:29 Vancomycin HCl (Vanco rx to dose) 1 ea DAILY PRN MISC Per rx protocol 11/14/16 03:30 12/14/16 03:29 Vancomycin HCl 750 mg/Dextrose 275 ml @ 183.708 mls/hr Q24H IVPB 11/15/16 12:00 11/20/16 11:59 11/16/16 12:07 Fede Cannon M.D. Nov 16, 2016 16:45
[2016-11-16] MEDS: Morphine Sulfate 4mg/ml Inj IVP PRN (17:01)
--- NOTE | 2016-11-16 19:12 | Nephrology Progress Note ---
Assessment/Plan Problem List: (1) Malfunction of gastrostomy tube (2) Fever (3) Tibial plateau fracture, right (4) Leukocytosis (5) Hypernatremia Assessment: likely 2/2 dehydration. resolved. Plan abx per ID. f/u cx's. monitor labs. lytes stable. renal fxn stable. will follow. thanks. Subjective Subjective late entry for 11/15/16 - 61 y/o f admitted with malfunction GT. also with elev Na. Objective Objective Last 24 Hour Vital Signs Date Time Temp Pulse Resp B/P Pulse Ox O2 Delivery O2 Flow Rate FiO2 11/16/16 17:39 97.6 11/16/16 16:00 97.6 130 23 155/84 100 Room Air 11/16/16 12:06 133 11/16/16 12:00 97.8 120 16 122/90 99 Nasal Cannula 2.0 11/16/16 08:42 113 11/16/16 08:00 97.9 112 17 119/94 94 Nasal Cannula 2.0 11/16/16 07:34 109 18 Nasal Cannula 2.0 11/16/16 06:33 Nasal Cannula 2.0 11/16/16 06:32 95 Nasal Cannula 2.0 11/16/16 04:00 97.5 108 18 148/87 100 Nasal Cannula 3.0 11/16/16 04:00 117 11/16/16 00:00 96.3 115 18 124/68 95 Nasal Cannula 3.0 11/16/16 00:00 113 11/15/16 22:07 Nasal Cannula 3.0 32 11/15/16 22:07 97 Nasal Cannula 3.0 32 11/15/16 22:06 130 17 Nasal Cannula 3.0 32 11/15/16 20:00 100.4 130 18 127/73 Nasal Cannula 3.0 97 Intake and Output 11/15/16 11/16/16 19:00 07:00 Intake Total 489.333 ml 315 ml Output Total 260 ml 300 ml Balance 229.333 ml 15 ml Intake Oral 120 ml 60 ml IV Total 369.333 ml 255 ml Output Urine Total 260 ml 300 ml # Bowel Movements 2 Laboratory Tests 11/16/16 05:05: White Blood Count 12.7H, Red Blood Count 2.98L, Hemoglobin 9.2L, Hematocrit 28.4L, Mean Corpuscular Volume 95, Mean Corpuscular Hemoglobin 30.9, Mean Corpuscular Hemoglobin Concent 32.4, Red Cell Distribution Width 13.0, Platelet Count 134L, Mean Platelet Volume 9.8, Neutrophils (%) (Auto) 76.4H, Lymphocytes (%) (Auto) 16.9L, Monocytes (%) (Auto) 5.0, Eosinophils (%) (Auto) 1.3, Basophils (%) (Auto) 0.5, Sodium Level 145, Potassium Level 4.1, Chloride Level 108H, Carbon Dioxide Level 28, Anion Gap 9, Blood Urea Nitrogen 17, Creatinine 0.9, Estimat Glomerular Filtration Rate > 60, Glucose Level 114H, Calcium Level 7.9L, Phosphorus Level 3.0 Height (Feet): 4 Height (Inches): 11.00 Weight (Pounds): 63 General Appearance: no apparent distress Cardiovascular: normal rate, regular rhythm Respiratory/Chest: lungs clear Abdomen: non tender, soft MARCELLA CARREON Nov 16, 2016 19:12
[2016-11-16 20:00] VITALS: BP 145/81
--- NOTE | 2016-11-16 23:03 | General Progress Note ---
Assessment/Plan Assessment/Plan GI Addendum GT bumper replaced and GT repositioned will check KUB to verify GT tip position Sarita De Paz Subjective Allergies: Coded Allergies: No Known Allergies (Unverified , 05/30/16) Objective Last 24 Hour Vital Signs Date Time Temp Pulse Resp B/P Pulse Ox O2 Delivery O2 Flow Rate FiO2 11/16/16 20:00 99.1 124 21 145/81 98 Room Air 11/16/16 20:00 130 11/16/16 19:21 118 20 Nasal Cannula 2.0 28 11/16/16 19:21 Nasal Cannula 2.0 28 11/16/16 19:21 96 Nasal Cannula 2.0 28 11/16/16 17:39 97.6 11/16/16 16:00 97.6 130 23 155/84 100 Room Air 11/16/16 12:06 133 11/16/16 12:00 97.8 120 16 122/90 99 Nasal Cannula 2.0 11/16/16 08:42 113 11/16/16 08:00 97.9 112 17 119/94 94 Nasal Cannula 2.0 11/16/16 07:34 109 18 Nasal Cannula 2.0 11/16/16 06:33 Nasal Cannula 2.0 11/16/16 06:32 95 Nasal Cannula 2.0 11/16/16 04:00 97.5 108 18 148/87 100 Nasal Cannula 3.0 11/16/16 04:00 117 11/16/16 00:00 96.3 115 18 124/68 95 Nasal Cannula 3.0 11/16/16 00:00 113 Intake and Output 11/15/16 11/16/16 19:00 07:00 Intake Total 489.333 ml 315 ml Output Total 260 ml 300 ml Balance 229.333 ml 15 ml Intake Oral 120 ml 60 ml IV Total 369.333 ml 255 ml Output Urine Total 260 ml 300 ml # Bowel Movements 2 Laboratory Tests 11/16/16 05:05: White Blood Count 12.7H, Red Blood Count 2.98L, Hemoglobin 9.2L, Hematocrit 28.4L, Mean Corpuscular Volume 95, Mean Corpuscular Hemoglobin 30.9, Mean Corpuscular Hemoglobin Concent 32.4, Red Cell Distribution Width 13.0, Platelet Count 134L, Mean Platelet Volume 9.8, Neutrophils (%) (Auto) 76.4H, Lymphocytes (%) (Auto) 16.9L, Monocytes (%) (Auto) 5.0, Eosinophils (%) (Auto) 1.3, Basophils (%) (Auto) 0.5, Sodium Level 145, Potassium Level 4.1, Chloride Level 108H, Carbon Dioxide Level 28, Anion Gap 9, Blood Urea Nitrogen 17, Creatinine 0.9, Estimat Glomerular Filtration Rate > 60, Glucose Level 114H, Calcium Level 7.9L, Phosphorus Level 3.0 Height (Feet): 4 Height (Inches): 11.00 Weight (Pounds): 63 SARITA DE PAZ Nov 16, 2016 23:02
[2016-11-17] VITALS: BP 147/77
[2016-11-17] MEDS: LORazepam Inj 2mg/ml 1ml IVP PRN (03:12)
[2016-11-17 04:00] VITALS: BP 129/63
[2016-11-17] MEDS: Cefepime HCl 1 GM in D5W 55 ML IV SCH (04:52)
[2016-11-17] MEDS: metroNIDAZOLE 500mg 100 ML IVPB SCH ×3 (05:37→22:00)
[2016-11-17 07:28] LABS: BASOPHILS % (AUTO) 0.7 % (0.0-2.0); LYMPHOCYTES % (AUTO) 17.1 % (20.0-45.0); MEAN CORPUSCULAR HEMOGLOBIN 31.5 PG (27.0-31.0); MEAN CORPUSCULAR HGB CONC 33.4 G/DL (32.0-36.0); MEAN CORPUSCULAR VOLUME 94 FL (80-99); MEAN PLATELET VOLUME 8.9 FL (6.5-10.1); NEUTROPHILS % (AUTO) 74.2 % (45.0-75.0); PLATELET COUNT 161 K/UL (150-450); RED BLOOD COUNT 2.82 M/UL (4.20-5.40); RED CELL DISTRIBUTION WIDTH 12.8 % (11.6-14.8); WHITE BLOOD COUNT 11.9 K/UL (4.8-10.8)
[2016-11-17 07:49] LABS: ANION GAP 13 (5-15); CALCIUM 8.3 mg/dL (8.6-10.2); CARBON DIOXIDE 26 mEQ/L (20-30); CHLORIDE 102 mEQ/L (98-107); CREATININE 0.8 mg/dL (0.5-0.9); GLOMERULAR FILTRATION RATE > 60 mL/min (>60); HEMOLYSIS 2; POTASSIUM 3.4 mEQ/L (3.4-4.9); SODIUM 141 mEQ/L (135-145)
--- NOTE | 2016-11-17 07:49 | General Progress Note ---
Assessment/Plan Problem List: (1) Coffee ground emesis ICD Codes: K92.0 - Hematemesis SNOMED: 56961415 (2) Sepsis ICD Codes: A41.9 - Sepsis, unspecified organism SNOMED: 51143651 Qualifiers: Qualified Codes: A41.9 - Sepsis, unspecified organism (3) Malfunction of gastrostomy tube ICD Codes: K94.23 - Gastrostomy malfunction SNOMED: 158293532 (4) Episode of generalized weakness ICD Codes: R53.1 - Weakness SNOMED: 29207806 (5) Physical retardation ICD Codes: R62.52 - Short stature (child) SNOMED: 501228364 (6) Leukocytosis ICD Codes: D72.829 - Elevated white blood cell count, unspecified SNOMED: 402427727 Status: stable, progressing, tolerating diet Assessment/Plan ot pt diet abx gi f/u cbc bmp am Subjective Constitutional: Reports: weakness Allergies: Coded Allergies: No Known Allergies (Unverified , 05/30/16) All Systems: reviewed and negative except above Subjective confused in bed Objective Last 24 Hour Vital Signs Date Time Temp Pulse Resp B/P Pulse Ox O2 Delivery O2 Flow Rate FiO2 11/17/16 04:00 99.6 115 18 129/63 95 Room Air 11/17/16 04:00 116 11/17/16 00:00 124 11/17/16 00:00 98.8 112 16 147/77 99 Nasal Cannula 2.0 11/16/16 20:00 99.1 124 21 145/81 98 Room Air 11/16/16 20:00 130 11/16/16 19:21 118 20 Nasal Cannula 2.0 28 11/16/16 19:21 Nasal Cannula 2.0 28 11/16/16 19:21 96 Nasal Cannula 2.0 28 11/16/16 17:39 97.6 11/16/16 16:00 97.6 130 23 155/84 100 Room Air 11/16/16 12:06 133 11/16/16 12:00 97.8 120 16 122/90 99 Nasal Cannula 2.0 11/16/16 08:42 113 11/16/16 08:00 97.9 112 17 119/94 94 Nasal Cannula 2.0 Intake and Output 11/16/16 11/17/16 19:00 07:00 Intake Total 735.000 ml 410 ml Output Total 360 ml 960 ml Balance 375.000 ml -550 ml Intake Oral 360 ml 100 ml IV Total 375.000 ml 310 ml Output Urine Total 360 ml 960 ml # Bowel Movements 3 Laboratory Tests 11/17/16 05:50: White Blood Count 11.9H, Red Blood Count 2.82L, Hemoglobin 8.9L, Hematocrit 26.6L, Mean Corpuscular Volume 94, Mean Corpuscular Hemoglobin 31.5H, Mean Corpuscular Hemoglobin Concent 33.4, Red Cell Distribution Width 12.8, Platelet Count 161, Mean Platelet Volume 8.9, Neutrophils (%) (Auto) 74.2, Lymphocytes (% ) (Auto) 17.1L, Monocytes (%) (Auto) 7.0, Eosinophils (%) (Auto) 1.0, Basophils (%) (Auto) 0.7, Sodium Level [Pending], Potassium Level [Pending], Chloride Level [Pending], Carbon Dioxide Level [Pending], Blood Urea Nitrogen [Pending], Creatinine [Pending], Estimat Glomerular Filtration Rate [Pending], Glucose Level [Pending], Calcium Level [Pending] Height (Feet): 4 Height (Inches): 11.00 Weight (Pounds): 63 General Appearance: lethargic EENT: normal ENT inspection Neck: normal alignment Cardiovascular: normal peripheral pulses, normal rate, regular rhythm Respiratory/Chest: chest wall non-tender, lungs clear, normal breath sounds Abdomen: normal bowel sounds, non tender, soft Extremities: normal inspection Edema: no edema noted Arm (L), no edema noted Arm (R), no edema noted Leg (L), no edema noted Leg (R), no edema noted Pedal (L), no edema noted Pedal (R), no edema noted Generalized Neurologic: motor weakness Skin: normal pigmentation, warm/dry MONIK BEASLEY Nov 17, 2016 07:49
[2016-11-17 07:59] VITALS: BP 132/75
[2016-11-17] MEDS: Donepezil 5mg Tab ORAL SCH (08:20)
[2016-11-17] MEDS: OLANZapine 2.5mg tab GT SCH (08:20)
[2016-11-17] MEDS: Heparin 5000 units/ml inj SUBQ SCH (08:22)
[2016-11-17] MEDS ORDERED: Famotidine 20 MG/ 2ML VIAL IVP SCH (09:00)
--- NOTE | 2016-11-17 10:51 | Pulmonology Progress Note ---
Assessment/Plan Problems: (1) Tachycardia (2) Encounter for PEG (percutaneous endoscopic gastrostomy) (3) Malfunction of gastrostomy tube (4) Physical retardation Assessment/Plan ortho noted reviewed on cefepime and vanco check cultures check electrolytes tachycardia is chronic ortho evaluation afebrile, improving tolerating diet med/surg Subjective ROS Limited/Unobtainable: No Interval Events: comforable, Allergies: Coded Allergies: No Known Allergies (Unverified , 05/30/16) Objective Last 24 Hour Vital Signs Date Time Temp Pulse Resp B/P Pulse Ox O2 Delivery O2 Flow Rate FiO2 11/17/16 07:59 98.4 117 18 132/75 99 Room Air 11/17/16 04:00 99.6 115 18 129/63 95 Room Air 11/17/16 04:00 116 11/17/16 00:00 124 11/17/16 00:00 98.8 112 16 147/77 99 Nasal Cannula 2.0 11/16/16 20:00 99.1 124 21 145/81 98 Room Air 11/16/16 20:00 130 11/16/16 19:21 118 20 Nasal Cannula 2.0 28 11/16/16 19:21 Nasal Cannula 2.0 28 11/16/16 19:21 96 Nasal Cannula 2.0 28 11/16/16 17:39 97.6 11/16/16 16:00 97.6 130 23 155/84 100 Room Air 11/16/16 12:06 133 11/16/16 12:00 97.8 120 16 122/90 99 Nasal Cannula 2.0 Intake and Output 11/16/16 11/17/16 19:00 07:00 Intake Total 735.000 ml 440 ml Output Total 360 ml 960 ml Balance 375.000 ml -520 ml Intake Oral 360 ml 100 ml IV Total 375.000 ml 310 ml Tube Feeding 30 ml Output Urine Total 360 ml 960 ml # Bowel Movements 3 General Appearance: cachetic HEENT: normocephalic, atraumatic Respiratory/Chest: chest wall non-tender, crackles/rales Cardiovascular: normal peripheral pulses, normal rate Abdomen: normal bowel sounds, soft, non tender Extremities: no cyanosis Skin: no rash 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, no motor/sensory deficits Lymphatic: no neck adenopathy Laboratory Tests 11/17/16 05:50: White Blood Count 11.9H, Red Blood Count 2.82L, Hemoglobin 8.9L, Hematocrit 26.6L, Mean Corpuscular Volume 94, Mean Corpuscular Hemoglobin 31.5H, Mean Corpuscular Hemoglobin Concent 33.4, Red Cell Distribution Width 12.8, Platelet Count 161, Mean Platelet Volume 8.9, Neutrophils (%) (Auto) 74.2, Lymphocytes (% ) (Auto) 17.1L, Monocytes (%) (Auto) 7.0, Eosinophils (%) (Auto) 1.0, Basophils (%) (Auto) 0.7, Sodium Level 141, Potassium Level 3.4, Chloride Level 102, Carbon Dioxide Level 26, Anion Gap 13, Blood Urea Nitrogen 12, Creatinine 0.8, Estimat Glomerular Filtration Rate > 60, Glucose Level 127H, Calcium Level 8.3L Current Medications Medications (Trade) Dose Ordered Sig/Curt Route PRN Reason Start Time Stop Time Status Last Admin Dose Admin Acetaminophen (Tylenol) 650 mg Q4H PRN RECTAL Mild Pain/Temp > 100.5 11/14/16 07:45 12/14/16 07:44 11/14/16 20:54 Al Hydroxide/Mg Hydroxide (Mylanta II) 30 ml Q6H PRN ORAL dyspepsia 11/14/16 03:30 12/14/16 03:29 Albuterol/ Ipratropium 3 ml 3 ml Q4H PRN HHN Shortness of Breath 11/14/16 03:30 11/19/16 03:29 Cefepime HCl/ Dextrose (Maxipime/D5W) 55 ml @ 110 mls/hr Q24H IV 11/14/16 05:00 11/21/16 04:59 11/17/16 04:52 Donepezil HCl (Aricept) 5 mg DAILY ORAL 11/14/16 09:00 12/14/16 08:59 11/17/16 08:20 Famotidine (Pepcid I.v.) 20 mg Q24H IVP 11/17/16 09:00 12/17/16 08:59 11/17/16 08:20 Heparin Sodium (Porcine) (Heparin 5000 units/ml) 5,000 units EVERY 12 HOURS SUBQ 11/14/16 09:00 12/14/16 08:59 11/17/16 08:22 Ibuprofen 600 mg 600 mg Q6H PRN ORAL Moderate Pain (Pain Scale 4-6) 11/14/16 10:30 12/14/16 10:29 Lorazepam (Ativan 2mg/ml 1ml) 1 mg Q6HR PRN IVP For Anxiety 11/14/16 07:00 11/21/16 06:59 11/17/16 03:12 Metronidazole (Flagyl) 100 ml @ 100 mls/hr Q8HR IVPB 11/15/16 18:00 11/22/16 17:59 11/17/16 05:37 Morphine Sulfate (Morphine Sulfate) 3 mg Q4H PRN IVP Severe Pain (Pain Scale 7-10) 11/16/16 17:30 11/23/16 17:29 11/16/16 17:01 Nitroglycerin (Ntg) 0.4 mg Q5M PRN SL Prn Chest Pain 11/14/16 03:30 12/14/16 03:29 Olanzapine (ZyPREXA) 2.5 mg DAILY GT 11/14/16 09:00 12/14/16 08:59 11/17/16 08:20 Ondansetron HCl (Zofran) 4 mg Q6H PRN IVP Nausea & Vomiting 11/14/16 03:30 12/14/16 03:29 11/15/16 00:02 Polyethylene Glycol (Miralax) 17 gm DAILYPRN PRN ORAL Constipation 11/14/16 03:30 12/14/16 03:29 Promethazine HCl/ Codeine (Phenergan with Codeine) 5 ml Q4H PRN ORAL For Cough 11/14/16 03:30 12/14/16 03:29 Temazepam (Restoril) 15 mg HSPRN PRN ORAL Insomnia 11/14/16 03:30 11/21/16 03:29 Vancomycin HCl (Vanco rx to dose) 1 ea DAILY PRN MISC Per rx protocol 11/14/16 03:30 12/14/16 03:29 Vancomycin HCl 750 mg/Dextrose 275 ml @ 183.708 mls/hr Q24H IVPB 11/15/16 12:00 11/20/16 11:59 11/16/16 12:07 FRANCESCO BO Nov 17, 2016 10:51
[2016-11-17] MEDS: Morphine Sulfate 4mg/ml Inj IVP PRN (10:55)
[2016-11-17 11:20] VITALS: BP 135/70
[2016-11-17] MEDS ORDERED: Mylanta II UD 30ml GT PRN ×3 (12:21→18:30)
[2016-11-17] MEDS ORDERED: Donepezil 5mg Tab GT SCH (12:21)
[2016-11-17] MEDS ORDERED: Miralax 17gm pkt GT PRN (12:22)
--- NOTE | 2016-11-17 12:31 | Nephrology Progress Note ---
Assessment/Plan Problem List: (1) Fever (2) Malfunction of gastrostomy tube (3) Episode of generalized weakness (4) Sepsis Plan Hypernatremia - resolved- stable lytes Will monitor Lytes Continue ABX per ID TF per GI Monitor H&H, transfuse as needed Adequate urine output, continue bustillo Continue pain management DVT prophylaxis Supportive care Subjective ROS Limited/Unobtainable: Yes Subjective In bed, family at bedside Objective Objective Last 24 Hour Vital Signs Date Time Temp Pulse Resp B/P Pulse Ox O2 Delivery O2 Flow Rate FiO2 11/17/16 11:20 98.1 116 18 135/70 100 Room Air 11/17/16 08:24 Nasal Cannula 2.0 28 11/17/16 08:24 100 Nasal Cannula 2.0 28 11/17/16 08:24 105 20 Nasal Cannula 2.0 28 11/17/16 08:03 106 11/17/16 07:59 98.4 117 18 132/75 99 Room Air 11/17/16 04:00 99.6 115 18 129/63 95 Room Air 11/17/16 04:00 116 11/17/16 00:00 124 11/17/16 00:00 98.8 112 16 147/77 99 Nasal Cannula 2.0 11/16/16 20:00 99.1 124 21 145/81 98 Room Air 11/16/16 20:00 130 11/16/16 19:21 118 20 Nasal Cannula 2.0 28 11/16/16 19:21 Nasal Cannula 2.0 28 11/16/16 19:21 96 Nasal Cannula 2.0 28 11/16/16 17:39 97.6 11/16/16 16:00 97.6 130 23 155/84 100 Room Air Intake and Output 11/16/16 11/17/16 19:00 07:00 Intake Total 735.000 ml 440 ml Output Total 360 ml 960 ml Balance 375.000 ml -520 ml Intake Oral 360 ml 100 ml IV Total 375.000 ml 310 ml Tube Feeding 30 ml Output Urine Total 360 ml 960 ml # Bowel Movements 3 Laboratory Tests 11/17/16 05:50: White Blood Count 11.9H, Red Blood Count 2.82L, Hemoglobin 8.9L, Hematocrit 26.6L, Mean Corpuscular Volume 94, Mean Corpuscular Hemoglobin 31.5H, Mean Corpuscular Hemoglobin Concent 33.4, Red Cell Distribution Width 12.8, Platelet Count 161, Mean Platelet Volume 8.9, Neutrophils (%) (Auto) 74.2, Lymphocytes (% ) (Auto) 17.1L, Monocytes (%) (Auto) 7.0, Eosinophils (%) (Auto) 1.0, Basophils (%) (Auto) 0.7, Sodium Level 141, Potassium Level 3.4, Chloride Level 102, Carbon Dioxide Level 26, Anion Gap 13, Blood Urea Nitrogen 12, Creatinine 0.8, Estimat Glomerular Filtration Rate > 60, Glucose Level 127H, Calcium Level 8.3L 11/17/16 11:15: Vancomycin Level Trough 10.6 Height (Feet): 4 Height (Inches): 11.00 Weight (Pounds): 63 General Appearance: mild distress EENT: PERRL/EOMI, normal ENT inspection Neck: non-tender, normal alignment Cardiovascular: regular rhythm, no JVD, tachycardia Respiratory/Chest: normal breath sounds, no respiratory distress Abdomen: soft, other - PEG Genitourinary/Rectal: other - BUSTILLO Neurologic: disoriented Stefania Arellano N.P. Nov 17, 2016 12:31
[2016-11-17] MEDS: Vancomycin 750mg/D5W 275ml IVPB SCH ×2 (12:38)
[2016-11-17] MEDS ORDERED: Vancomycin 1gm in D5W 275ml IVPB SCH (13:00)
[2016-11-17] MEDS ORDERED: Promethazine/Codeine 5ml UD GT PRN ×2 (13:18→17:30)
--- NOTE | 2016-11-17 15:19 | Infectious Diseases Prog Note ---
Assessment/Plan Problems: (1) Sepsis Assessment & Plan: improving on vancomycin , cefepime, and flagyl , blood culture is negative so far (2) Encounter for PEG (percutaneous endoscopic gastrostomy) Assessment & Plan: had stop for her G tube placed by GI, and started on tube feeding (3) Leukocytosis Assessment & Plan: improving , suspect due to sepsis VS dehydration , await blood culture, continue wide spectrum antibiotics (4) Tibial plateau fracture, right Assessment & Plan: S/P cast placement, ortho consulted, not candidate for surgery Subjective Musculoskeletal: Reports: pain, stiffness Allergies: Coded Allergies: No Known Allergies (Unverified , 05/30/16) All Systems: reviewed and negative except above Subjective she is demented, up in bed, awake , not in distress Objective Vital Signs Last 24 Hour Vital Signs Date Time Temp Pulse Resp B/P Pulse Ox O2 Delivery O2 Flow Rate FiO2 11/17/16 11:20 98.1 116 18 135/70 100 Room Air 11/17/16 08:24 Nasal Cannula 2.0 28 11/17/16 08:24 100 Nasal Cannula 2.0 28 11/17/16 08:24 105 20 Nasal Cannula 2.0 28 11/17/16 08:03 106 11/17/16 07:59 98.4 117 18 132/75 99 Room Air 11/17/16 04:00 99.6 115 18 129/63 95 Room Air 11/17/16 04:00 116 11/17/16 00:00 124 11/17/16 00:00 98.8 112 16 147/77 99 Nasal Cannula 2.0 11/16/16 20:00 99.1 124 21 145/81 98 Room Air 11/16/16 20:00 130 11/16/16 19:21 118 20 Nasal Cannula 2.0 28 11/16/16 19:21 Nasal Cannula 2.0 28 11/16/16 19:21 96 Nasal Cannula 2.0 28 11/16/16 17:39 97.6 11/16/16 16:00 97.6 130 23 155/84 100 Room Air Height (Feet): 4 Height (Inches): 11.00 Weight (Pounds): 63 General Appearance: WD/WN, no acute distress HEENT: normocephalic, atraumatic, anicteric, mucous membranes moist Respiratory/Chest: chest wall non-tender, lungs clear, normal breath sounds, no respiratory distress Cardiovascular: normal peripheral pulses, normal rate, regular rhythm Abdomen: normal bowel sounds, soft, non tender, no organomegaly, non distended Extremities: no cyanosis, no clubbing Skin: no rash, no lesions Laboratory Tests Test 11/17/16 05:50 11/17/16 11:15 White Blood Count 11.9 K/UL (4.8-10.8) H Red Blood Count 2.82 M/UL (4.20-5.40) L Hemoglobin 8.9 G/DL (12.0-16.0) L Hematocrit 26.6 % (37.0-47.0) L Mean Corpuscular Volume 94 FL (80-99) Mean Corpuscular Hemoglobin 31.5 PG (27.0-31.0) H Mean Corpuscular Hemoglobin Concent 33.4 G/DL (32.0-36.0) Red Cell Distribution Width 12.8 % (11.6-14.8) Platelet Count 161 K/UL (150-450) Mean Platelet Volume 8.9 FL (6.5-10.1) Neutrophils (%) (Auto) 74.2 % (45.0-75.0) Lymphocytes (%) (Auto) 17.1 % (20.0-45.0) L Monocytes (%) (Auto) 7.0 % (1.0-10.0) Eosinophils (%) (Auto) 1.0 % (0.0-3.0) Basophils (%) (Auto) 0.7 % (0.0-2.0) Sodium Level 141 mEQ/L (135-145) Potassium Level 3.4 mEQ/L (3.4-4.9) Chloride Level 102 mEQ/L (98-107) Carbon Dioxide Level 26 mEQ/L (20-30) Anion Gap 13 (5-15) Blood Urea Nitrogen 12 mg/dL (7-23) Creatinine 0.8 mg/dL (0.5-0.9) Estimat Glomerular Filtration Rate > 60 mL/min (>60) Glucose Level 127 mg/dL (74-106) H Calcium Level 8.3 mg/dL (8.6-10.2) L Vancomycin Level Trough 10.6 ug/mL (5.0-12.0) Current Medications Medications (Trade) Dose Ordered Sig/Curt Route PRN Reason Start Time Stop Time Status Last Admin Dose Admin Acetaminophen (Tylenol) 650 mg Q4H PRN RECTAL Mild Pain/Temp > 100.5 11/14/16 07:45 12/14/16 07:44 11/14/16 20:54 Al Hydroxide/Mg Hydroxide (Mylanta II) 30 ml Q6H PRN GT dyspepsia 11/17/16 12:21 12/14/16 03:29 Albuterol/ Ipratropium 3 ml 3 ml Q4H PRN HHN Shortness of Breath 11/14/16 03:30 11/19/16 03:29 Cefepime HCl/ Dextrose (Maxipime/D5W) 55 ml @ 110 mls/hr Q24H IV 11/14/16 05:00 11/21/16 04:59 11/17/16 04:52 Donepezil HCl (Aricept) 5 mg DAILY GT 11/17/16 12:21 12/14/16 08:59 Famotidine (Pepcid I.v.) 20 mg Q24H IVP 11/17/16 09:00 12/17/16 08:59 11/17/16 08:20 Heparin Sodium (Porcine) (Heparin 5000 units/ml) 5,000 units EVERY 12 HOURS SUBQ 11/14/16 09:00 12/14/16 08:59 11/17/16 08:22 Ibuprofen 600 mg 600 mg Q6H PRN ORAL Moderate Pain (Pain Scale 4-6) 11/14/16 10:30 12/14/16 10:29 Lorazepam (Ativan 2mg/ml 1ml) 1 mg Q6HR PRN IVP For Anxiety 11/14/16 07:00 11/21/16 06:59 11/17/16 03:12 Metronidazole (Flagyl) 100 ml @ 100 mls/hr Q8HR IVPB 11/15/16 18:00 11/22/16 17:59 11/17/16 14:50 Morphine Sulfate 3 mg 3 mg Q4H PRN IVP Severe Pain (Pain Scale 7-10) 11/16/16 17:30 11/23/16 17:29 11/17/16 10:55 Nitroglycerin (Ntg) 0.4 mg Q5M PRN SL Prn Chest Pain 11/14/16 03:30 12/14/16 03:29 Olanzapine (ZyPREXA) 2.5 mg DAILY GT 11/14/16 09:00 12/14/16 08:59 11/17/16 08:20 Ondansetron HCl (Zofran) 4 mg Q6H PRN IVP Nausea & Vomiting 11/14/16 03:30 12/14/16 03:29 11/15/16 00:02 Polyethylene Glycol (Miralax) 17 gm DAILYPRN PRN GT Constipation 11/17/16 12:22 12/14/16 03:29 Promethazine HCl/ Codeine (Phenergan with Codeine) 5 ml Q4H PRN GT For Cough 11/17/16 13:18 12/14/16 03:29 Temazepam (Restoril) 15 mg HSPRN PRN GT Insomnia 11/17/16 13:18 11/21/16 03:29 Vancomycin HCl (Vanco rx to dose) 1 ea DAILY PRN MISC Per rx protocol 11/14/16 03:30 12/14/16 03:29 Vancomycin HCl/ Dextrose (Vancomycin/D5W) 275 ml @ 183.708 mls/hr Q24H IVPB 11/17/16 13:00 11/22/16 12:59 11/17/16 13:17 Fede Cannon M.D. Nov 17, 2016 15:19
[2016-11-17 16:00] VITALS: BP 131/68
[2016-11-17] MEDS ORDERED: DuoNeb 0.5-3(2.5)mg/3ml neb HHN PRN ×2 (16:00→19:30)
[2016-11-17] MEDS ORDERED: Miralax 17gm pkt ORAL PRN (16:00)
[2016-11-17] MEDS ORDERED: Nitroglycerin Subl 0.4mg tab (Bottle Of 25) SL PRN ×2 (16:00)
[2016-11-17] MEDS ORDERED: Acetaminophen 650 MG SUPP RECTAL PRN (19:45)
[2016-11-17 20:11] VITALS: BP 148/77
--- NOTE | 2016-11-17 21:23 | General Progress Note ---
Assessment/Plan Assessment/Plan Assessment - malnutrition - s/p G tube ( not J tube) - x-ray confirmation of "J tube" due to migration Recommendtions - GT re positioned - re check KUB - OK to feed Subjective Allergies: Coded Allergies: No Known Allergies (Unverified , 05/30/16) Subjective NAD tolerating TF KUB noted Objective Last 24 Hour Vital Signs Date Time Temp Pulse Resp B/P Pulse Ox O2 Delivery O2 Flow Rate FiO2 11/17/16 20:11 103.3 127 22 148/77 94 Nasal Cannula 2.0 11/17/16 19:08 Nasal Cannula 2.0 11/17/16 19:03 97 Nasal Cannula 2.0 11/17/16 19:02 115 20 Nasal Cannula 2.0 11/17/16 16:00 98.9 111 19 131/68 96 Nasal Cannula 2.0 11/17/16 11:20 98.1 116 18 135/70 100 Room Air 11/17/16 08:24 Nasal Cannula 2.0 28 11/17/16 08:24 100 Nasal Cannula 2.0 28 11/17/16 08:24 105 20 Nasal Cannula 2.0 28 11/17/16 08:03 106 11/17/16 07:59 98.4 117 18 132/75 99 Room Air 11/17/16 04:00 99.6 115 18 129/63 95 Room Air 11/17/16 04:00 116 11/17/16 00:00 124 11/17/16 00:00 98.8 112 16 147/77 99 Nasal Cannula 2.0 Intake and Output 11/16/16 11/17/16 19:00 07:00 Intake Total 735.000 ml 440 ml Output Total 360 ml 960 ml Balance 375.000 ml -520 ml Intake Oral 360 ml 100 ml IV Total 375.000 ml 310 ml Tube Feeding 30 ml Output Urine Total 360 ml 960 ml # Bowel Movements 3 Laboratory Tests 11/17/16 05:50: White Blood Count 11.9H, Red Blood Count 2.82L, Hemoglobin 8.9L, Hematocrit 26.6L, Mean Corpuscular Volume 94, Mean Corpuscular Hemoglobin 31.5H, Mean Corpuscular Hemoglobin Concent 33.4, Red Cell Distribution Width 12.8, Platelet Count 161, Mean Platelet Volume 8.9, Neutrophils (%) (Auto) 74.2, Lymphocytes (% ) (Auto) 17.1L, Monocytes (%) (Auto) 7.0, Eosinophils (%) (Auto) 1.0, Basophils (%) (Auto) 0.7, Sodium Level 141, Potassium Level 3.4, Chloride Level 102, Carbon Dioxide Level 26, Anion Gap 13, Blood Urea Nitrogen 12, Creatinine 0.8, Estimat Glomerular Filtration Rate > 60, Glucose Level 127H, Calcium Level 8.3L 11/17/16 11:15: Vancomycin Level Trough 10.6 Height (Feet): 4 Height (Inches): 11.00 Weight (Pounds): 63 Objective Thin WW NCAT supple CTA RRR soft ND, (+) GT (+) splint CRIS KOO Nov 17, 2016 21:23
[2016-11-18 00:07] VITALS: BP 137/82
[2016-11-18] MEDS: Heparin 5000 units/ml inj SUBQ SCH ×3 (01:00→22:46)
[2016-11-18 04:03] VITALS: BP 126/80
[2016-11-18] MEDS: Cefepime HCl 1 GM in D5W 55 ML IV SCH (05:00)
[2016-11-18] MEDS: metroNIDAZOLE 500mg 100 ML IVPB SCH ×2 (06:00→15:29)
[2016-11-18 06:32] LABS: BASOPHILS % (AUTO) 0.7 % (0.0-2.0); EOSINOPHILS % (AUTO) 2.2 % (0.0-3.0); LYMPHOCYTES % (AUTO) 17.8 % (20.0-45.0); MEAN CORPUSCULAR HEMOGLOBIN 31.1 PG (27.0-31.0); MEAN CORPUSCULAR HGB CONC 32.8 G/DL (32.0-36.0); MEAN CORPUSCULAR VOLUME 95 FL (80-99); MEAN PLATELET VOLUME 9.2 FL (6.5-10.1); MONOCYTES % (AUTO) 7.9 % (1.0-10.0); NEUTROPHILS % (AUTO) 71.4 % (45.0-75.0); PLATELET COUNT 204 K/UL (150-450); RED BLOOD COUNT 3.35 M/UL (4.20-5.40); WHITE BLOOD COUNT 11.5 K/UL (4.8-10.8)
[2016-11-18 06:48] LABS: ANION GAP 9 (5-15); CALCIUM 8.6 mg/dL (8.6-10.2); CARBON DIOXIDE 31 mEQ/L (20-30); CHLORIDE 103 mEQ/L (98-107); CREATININE 0.9 mg/dL (0.5-0.9); GLOMERULAR FILTRATION RATE > 60 mL/min (>60); HEMOLYSIS 2; POTASSIUM 3.4 mEQ/L (3.4-4.9); SODIUM 143 mEQ/L (135-145)
--- NOTE | 2016-11-18 07:30 | General Progress Note ---
Assessment/Plan Problem List: (1) Coffee ground emesis ICD Codes: K92.0 - Hematemesis SNOMED: 62323385 (2) Sepsis ICD Codes: A41.9 - Sepsis, unspecified organism SNOMED: 52656944 Qualifiers: Qualified Codes: A41.9 - Sepsis, unspecified organism (3) Malfunction of gastrostomy tube ICD Codes: K94.23 - Gastrostomy malfunction SNOMED: 152507146 (4) Episode of generalized weakness ICD Codes: R53.1 - Weakness SNOMED: 00556975 (5) Physical retardation ICD Codes: R62.52 - Short stature (child) SNOMED: 958937971 (6) Leukocytosis ICD Codes: D72.829 - Elevated white blood cell count, unspecified SNOMED: 958602259 Status: stable, progressing, tolerating diet Assessment/Plan ot pt diet abx gi f/u cbc bmp am Subjective Constitutional: Reports: weakness Allergies: Coded Allergies: No Known Allergies (Unverified , 05/30/16) All Systems: reviewed and negative except above Subjective confused in bed Objective Last 24 Hour Vital Signs Date Time Temp Pulse Resp B/P Pulse Ox O2 Delivery O2 Flow Rate FiO2 11/18/16 04:03 98.4 100 19 126/80 99 Room Air 11/18/16 00:07 98.7 120 20 137/82 95 Room Air 2.0 11/17/16 20:11 103.3 127 22 148/77 94 Nasal Cannula 2.0 11/17/16 19:08 Nasal Cannula 2.0 11/17/16 19:03 97 Nasal Cannula 2.0 11/17/16 19:02 115 20 Nasal Cannula 2.0 11/17/16 16:00 98.9 111 19 131/68 96 Nasal Cannula 2.0 11/17/16 11:20 98.1 116 18 135/70 100 Room Air 11/17/16 08:24 Nasal Cannula 2.0 28 11/17/16 08:24 100 Nasal Cannula 2.0 28 11/17/16 08:24 105 20 Nasal Cannula 2.0 28 11/17/16 08:03 106 11/17/16 07:59 98.4 117 18 132/75 99 Room Air Intake and Output 11/17/16 11/18/16 19:00 07:00 Intake Total 443.708 ml 118 ml Output Total 250 ml 500 ml Balance 193.708 ml -382 ml Intake Oral 118 ml IV Total 183.708 ml Tube Feeding 260 ml Output Urine Total 250 ml 500 ml # Voids 1 # Bowel Movements 2 3 Laboratory Tests 11/17/16 11:15: Vancomycin Level Trough 10.6 11/18/16 05:50: White Blood Count 11.5H, Red Blood Count 3.35L, Hemoglobin 10.4L, Hematocrit 31.8L, Mean Corpuscular Volume 95, Mean Corpuscular Hemoglobin 31.1H, Mean Corpuscular Hemoglobin Concent 32.8, Red Cell Distribution Width 13.0, Platelet Count 204, Mean Platelet Volume 9.2, Neutrophils (%) (Auto) 71.4, Lymphocytes (% ) (Auto) 17.8L, Monocytes (%) (Auto) 7.9, Eosinophils (%) (Auto) 2.2, Basophils (%) (Auto) 0.7, Sodium Level 143, Potassium Level 3.4, Chloride Level 103, Carbon Dioxide Level 31H, Anion Gap 9, Blood Urea Nitrogen 13, Creatinine 0.9, Estimat Glomerular Filtration Rate > 60, Glucose Level 84, Calcium Level 8.6 Height (Feet): 4 Height (Inches): 11.00 Weight (Pounds): 63 General Appearance: lethargic, confused EENT: normal ENT inspection Neck: normal alignment Cardiovascular: normal peripheral pulses, normal rate, regular rhythm Respiratory/Chest: chest wall non-tender, lungs clear, normal breath sounds Abdomen: normal bowel sounds, non tender, soft Extremities: normal inspection Edema: no edema noted Arm (L), no edema noted Arm (R), no edema noted Leg (L), no edema noted Leg (R), no edema noted Pedal (L), no edema noted Pedal (R), no edema noted Generalized Neurologic: motor weakness Skin: normal pigmentation, warm/dry MONIK BEASLEY Nov 18, 2016 07:30
[2016-11-18 08:00] VITALS: BP 127/67
[2016-11-18] MEDS ORDERED: Famotidine 20 MG/ 2ML VIAL IVP SCH (09:00)
--- NOTE | 2016-11-18 09:15 | Diagnostic Imaging Report ---
Clinical history: Evaluate G-tube position. Technique: Single frontal abdominal radiograph was obtained after administration of 30 cc Gastrografin through the G-tube. Comparisons: 11/16/16. Findings: Balloon retention gastrostomy tube has been placed in the interval and projects over the region of the stomach. Contrast is seen in the distal stomach and proximal small bowel loops without evidence of extraluminal extravasation. The visualized bowel gas pattern is nonspecific and nonobstructive. Impression: Appropriate position of balloon retention gastrostomy tube as described.
[2016-11-18] MEDS: LORazepam Inj 2mg/ml 1ml IVP PRN ×2 (10:44→19:26)
[2016-11-18] MEDS: OLANZapine 2.5mg tab GT SCH (10:44)
[2016-11-18] MEDS: Donepezil 5mg Tab GT SCH (10:44)
--- NOTE | 2016-11-18 11:44 | Nephrology Progress Note ---
Assessment/Plan Problem List: (1) Fever (2) Malfunction of gastrostomy tube (3) Episode of generalized weakness (4) Sepsis (5) Severe malnutrition (6) Anemia (7) Tachycardia Plan Hypernatremia - resolved- stable lytes Will monitor Lytes Continue ABX per ID TF per GI Monitor vitals Cardilogy consult recommended Monitor H&H, transfuse as needed Adequate urine output, continue bustillo Continue pain management DVT prophylaxis Supportive care Subjective ROS Limited/Unobtainable: Yes Subjective In bed, asleep, family at bedside Objective Objective Last 24 Hour Vital Signs Date Time Temp Pulse Resp B/P Pulse Ox O2 Delivery O2 Flow Rate FiO2 11/18/16 08:10 97 Room Air 11/18/16 08:10 110 20 Room Air 11/18/16 08:10 Room Air 21 11/18/16 08:00 98.1 104 18 127/67 100 Room Air 11/18/16 04:03 98.4 100 19 126/80 99 Room Air 11/18/16 00:07 98.7 120 20 137/82 95 Room Air 2.0 11/17/16 20:11 103.3 127 22 148/77 94 Nasal Cannula 2.0 11/17/16 19:08 Nasal Cannula 2.0 11/17/16 19:03 97 Nasal Cannula 2.0 11/17/16 19:02 115 20 Nasal Cannula 2.0 11/17/16 16:00 98.9 111 19 131/68 96 Nasal Cannula 2.0 Intake and Output 11/17/16 11/18/16 19:00 07:00 Intake Total 443.708 ml 118 ml Output Total 250 ml 500 ml Balance 193.708 ml -382 ml Intake Oral 118 ml IV Total 183.708 ml Tube Feeding 260 ml Output Urine Total 250 ml 500 ml # Voids 1 # Bowel Movements 2 3 Laboratory Tests 11/18/16 05:50: White Blood Count 11.5H, Red Blood Count 3.35L, Hemoglobin 10.4L, Hematocrit 31.8L, Mean Corpuscular Volume 95, Mean Corpuscular Hemoglobin 31.1H, Mean Corpuscular Hemoglobin Concent 32.8, Red Cell Distribution Width 13.0, Platelet Count 204, Mean Platelet Volume 9.2, Neutrophils (%) (Auto) 71.4, Lymphocytes (% ) (Auto) 17.8L, Monocytes (%) (Auto) 7.9, Eosinophils (%) (Auto) 2.2, Basophils (%) (Auto) 0.7, Sodium Level 143, Potassium Level 3.4, Chloride Level 103, Carbon Dioxide Level 31H, Anion Gap 9, Blood Urea Nitrogen 13, Creatinine 0.9, Estimat Glomerular Filtration Rate > 60, Glucose Level 84, Calcium Level 8.6 Height (Feet): 4 Height (Inches): 11.00 Weight (Pounds): 63 General Appearance: no apparent distress EENT: normal ENT inspection Neck: non-tender Cardiovascular: regular rhythm Respiratory/Chest: normal breath sounds, no respiratory distress Abdomen: no organomegaly Genitourinary/Rectal: other - bustillo Neurologic: disoriented Stefania Arellano N.P. Nov 18, 2016 11:44
[2016-11-18] MEDS ORDERED: Miralax 17gm pkt GT PRN (12:30)
[2016-11-18] MEDS: Vancomycin 1 GM in D5W 275 ML IVPB SCH (15:29)
--- NOTE | 2016-11-18 16:22 | Pulmonology Progress Note ---
Assessment/Plan Problems: (1) Tachycardia (2) Encounter for PEG (percutaneous endoscopic gastrostomy) (3) Malfunction of gastrostomy tube (4) Physical retardation Assessment/Plan ortho noted reviewed on cefepime and vanco check cultures check electrolytes tachycardia is chronic ortho evaluation afebrile, improving tolerating diet med/surg Subjective ROS Limited/Unobtainable: Yes Neurologic: Reports: confusion, weakness Allergies: Coded Allergies: No Known Allergies (Unverified , 05/30/16) Objective Last 24 Hour Vital Signs Date Time Temp Pulse Resp B/P Pulse Ox O2 Delivery O2 Flow Rate FiO2 11/18/16 14:24 98.1 11/18/16 08:10 97 Room Air 11/18/16 08:10 110 20 Room Air 11/18/16 08:10 Room Air 21 11/18/16 08:00 98.1 104 18 127/67 100 Room Air 11/18/16 04:03 98.4 100 19 126/80 99 Room Air 11/18/16 00:07 98.7 120 20 137/82 95 Room Air 2.0 11/17/16 20:11 103.3 127 22 148/77 94 Nasal Cannula 2.0 11/17/16 19:08 Nasal Cannula 2.0 11/17/16 19:03 97 Nasal Cannula 2.0 11/17/16 19:02 115 20 Nasal Cannula 2.0 Intake and Output 11/17/16 11/18/16 19:00 07:00 Intake Total 443.708 ml 118 ml Output Total 250 ml 500 ml Balance 193.708 ml -382 ml Intake Oral 118 ml IV Total 183.708 ml Tube Feeding 260 ml Output Urine Total 250 ml 500 ml # Voids 1 # Bowel Movements 2 3 General Appearance: no acute distress HEENT: normocephalic, atraumatic, mucous membranes moist, PERRL Respiratory/Chest: chest wall non-tender, decreased breath sounds, accessory muscle use Breasts: no masses Cardiovascular: normal peripheral pulses, normal rate, regular rhythm, no JVD Abdomen: normal bowel sounds, soft, non tender, no organomegaly, non distended Genitourinary: normal external genitalia Extremities: no cyanosis Skin: no rash Neurologic/Psychiatric: drafter directional survey II-XII grossly normal, responsive, disoriented Laboratory Tests 11/18/16 05:50: White Blood Count 11.5H, Red Blood Count 3.35L, Hemoglobin 10.4L, Hematocrit 31.8L, Mean Corpuscular Volume 95, Mean Corpuscular Hemoglobin 31.1H, Mean Corpuscular Hemoglobin Concent 32.8, Red Cell Distribution Width 13.0, Platelet Count 204, Mean Platelet Volume 9.2, Neutrophils (%) (Auto) 71.4, Lymphocytes (% ) (Auto) 17.8L, Monocytes (%) (Auto) 7.9, Eosinophils (%) (Auto) 2.2, Basophils (%) (Auto) 0.7, Sodium Level 143, Potassium Level 3.4, Chloride Level 103, Carbon Dioxide Level 31H, Anion Gap 9, Blood Urea Nitrogen 13, Creatinine 0.9, Estimat Glomerular Filtration Rate > 60, Glucose Level 84, Calcium Level 8.6 Current Medications Medications (Trade) Dose Ordered Sig/Curt Route PRN Reason Start Time Stop Time Status Last Admin Dose Admin Acetaminophen (Tylenol) 650 mg Q4H PRN RECTAL Mild Pain/Temp > 100.5 11/17/16 19:45 12/17/16 19:44 Al Hydroxide/Mg Hydroxide (Mylanta II) 30 ml Q6H PRN GT dyspepsia 11/17/16 18:30 12/17/16 18:29 Albuterol/ Ipratropium (DuoNeb 0.5-3(2.5)mg/3ml) 3 ml Q4H PRN HHN Shortness of Breath 11/17/16 19:30 11/22/16 19:29 Cefepime HCl 1 gm/ Dextrose 55 ml @ 110 mls/hr Q24H IV 11/18/16 05:00 11/22/16 04:59 Donepezil HCl (Aricept) 5 mg DAILY GT 11/18/16 09:00 12/18/16 08:59 11/18/16 10:44 Famotidine (Pepcid I.v.) 20 mg Q24H IVP 11/18/16 09:00 12/18/16 08:59 11/18/16 14:47 Heparin Sodium (Porcine) (Heparin 5000 units/ml) 5,000 units EVERY 12 HOURS SUBQ 11/17/16 21:00 12/17/16 20:59 11/18/16 10:49 Ibuprofen (Motrin) 600 mg Q6H PRN ORAL Moderate Pain (Pain Scale 4-6) 11/17/16 16:30 12/17/16 16:29 11/18/16 06:46 Lorazepam (Ativan 2mg/ml 1ml) 1 mg Q6HR PRN IVP For Anxiety 11/17/16 18:00 11/24/16 17:59 11/18/16 10:44 Metronidazole 100 ml @ 100 mls/hr Q8HR IVPB 11/17/16 22:00 11/21/16 21:59 11/18/16 15:29 Mirtazapine 15 mg 15 mg BEDTIME GT 11/17/16 21:00 12/17/16 20:59 11/18/16 01:00 Morphine Sulfate (Morphine Sulfate) 3 mg Q4H PRN IVP Severe Pain (Pain Scale 7-10) 11/17/16 17:30 11/24/16 17:29 Nitroglycerin (Ntg) 0.4 mg Q5M PRN SL Prn Chest Pain 11/17/16 16:00 12/17/16 15:59 Olanzapine (ZyPREXA) 2.5 mg DAILY GT 11/18/16 09:00 12/18/16 08:59 11/18/16 10:44 Ondansetron HCl (Zofran) 4 mg Q6H PRN IVP Nausea & Vomiting 11/17/16 21:30 12/17/16 21:29 Polyethylene Glycol (Miralax) 17 gm DAILYPRN PRN GT Constipation 11/18/16 12:30 12/18/16 12:29 Promethazine HCl/ Codeine (Phenergan with Codeine) 5 ml Q4H PRN GT For Cough 11/17/16 17:30 12/17/16 17:29 Temazepam (Restoril) 15 mg HSPRN PRN GT Insomnia 11/18/16 13:30 11/25/16 13:29 Vancomycin HCl (Vanco rx to dose) 1 ea DAILY PRN MISC Per rx protocol 11/18/16 09:00 12/18/16 08:59 Vancomycin HCl/ Dextrose (Vancomycin/D5W) 275 ml @ 183.708 mls/hr Q24H IVPB 11/18/16 13:00 11/22/16 12:59 11/18/16 15:29 FRANCESCO BO Nov 18, 2016 16:22
[2016-11-18] MEDS: Morphine Sulfate 4mg/ml Inj IVP PRN ×2 (16:35→18:01)
[2016-11-18] MEDS ORDERED: Tubing IV Secondary IV ONE (17:40)
--- NOTE | 2016-11-18 18:16 | General Progress Note ---
Assessment/Plan Assessment/Plan Assessment - malnutrition - s/p G tube ( not J tube) - x-ray confirmation of "J tube" due to migration --> corrected Recommendtions - continue TF - OK to feed po for gratification Subjective Allergies: Coded Allergies: No Known Allergies (Unverified , 05/30/16) Subjective NAD tolerating TF KUB noted now tip in stomach Objective Last 24 Hour Vital Signs Date Time Temp Pulse Resp B/P Pulse Ox O2 Delivery O2 Flow Rate FiO2 11/18/16 18:02 98.1 11/18/16 14:24 98.1 11/18/16 08:10 97 Room Air 11/18/16 08:10 110 20 Room Air 11/18/16 08:10 Room Air 21 11/18/16 08:00 98.1 104 18 127/67 100 Room Air 11/18/16 04:03 98.4 100 19 126/80 99 Room Air 11/18/16 00:07 98.7 120 20 137/82 95 Room Air 2.0 11/17/16 20:11 103.3 127 22 148/77 94 Nasal Cannula 2.0 11/17/16 19:08 Nasal Cannula 2.0 11/17/16 19:03 97 Nasal Cannula 2.0 11/17/16 19:02 115 20 Nasal Cannula 2.0 Intake and Output 11/17/16 11/18/16 19:00 07:00 Intake Total 443.708 ml 118 ml Output Total 250 ml 500 ml Balance 193.708 ml -382 ml Intake Oral 118 ml IV Total 183.708 ml Tube Feeding 260 ml Output Urine Total 250 ml 500 ml # Voids 1 # Bowel Movements 2 3 Laboratory Tests 11/18/16 05:50: White Blood Count 11.5H, Red Blood Count 3.35L, Hemoglobin 10.4L, Hematocrit 31.8L, Mean Corpuscular Volume 95, Mean Corpuscular Hemoglobin 31.1H, Mean Corpuscular Hemoglobin Concent 32.8, Red Cell Distribution Width 13.0, Platelet Count 204, Mean Platelet Volume 9.2, Neutrophils (%) (Auto) 71.4, Lymphocytes (% ) (Auto) 17.8L, Monocytes (%) (Auto) 7.9, Eosinophils (%) (Auto) 2.2, Basophils (%) (Auto) 0.7, Sodium Level 143, Potassium Level 3.4, Chloride Level 103, Carbon Dioxide Level 31H, Anion Gap 9, Blood Urea Nitrogen 13, Creatinine 0.9, Estimat Glomerular Filtration Rate > 60, Glucose Level 84, Calcium Level 8.6 Height (Feet): 4 Height (Inches): 11.00 Weight (Pounds): 63 Objective Thin WW NCAT supple CTA RRR soft ND, (+) GT (+) splint CRIS KOO Nov 18, 2016 18:16
[2016-11-18 20:00] VITALS: BP 130/67
[2016-11-18] MEDS ORDERED: NS 275ml ONE (20:35)
[2016-11-18] MEDS: metroNIDAZOLE 500mg tab ORAL SCH (22:41)
[2016-11-19] VITALS: BP 139/81
[2016-11-19] MEDS: Morphine Sulfate 4mg/ml Inj IVP PRN ×3 (01:42→15:18)
[2016-11-19 04:00] VITALS: BP 151/94
[2016-11-19] MEDS: Cefepime HCl 1 GM in D5W 55 ML IV SCH (04:51)
[2016-11-19] MEDS: metroNIDAZOLE 500mg tab ORAL SCH ×2 (06:00→15:16)
[2016-11-19 07:45] LABS: ANION GAP 13 (5-15); CALCIUM 8.1 mg/dL (8.6-10.2); CARBON DIOXIDE 26 mEQ/L (20-30); CHLORIDE 105 mEQ/L (98-107); CREATININE 0.8 mg/dL (0.5-0.9); GLOMERULAR FILTRATION RATE > 60 mL/min (>60); HEMOLYSIS 3; POTASSIUM 3.8 mEQ/L (3.4-4.9); SODIUM 144 mEQ/L (135-145)
[2016-11-19 07:46] LABS: BASOPHILS % (AUTO) 0.4 % (0.0-2.0); EOSINOPHILS % (AUTO) 0.6 % (0.0-3.0); LYMPHOCYTES % (AUTO) 16.1 % (20.0-45.0); MEAN CORPUSCULAR HEMOGLOBIN 30.7 PG (27.0-31.0); MEAN CORPUSCULAR HGB CONC 32.4 G/DL (32.0-36.0); MEAN CORPUSCULAR VOLUME 95 FL (80-99); MEAN PLATELET VOLUME 7.8 FL (6.5-10.1); NEUTROPHILS % (AUTO) 74.9 % (45.0-75.0); PLATELET COUNT 209 K/UL (150-450); RED BLOOD COUNT 3.01 M/UL (4.20-5.40); WHITE BLOOD COUNT 11.5 K/UL (4.8-10.8)
[2016-11-19 08:05] VITALS: BP 131/66
[2016-11-19] MEDS: Donepezil 5mg Tab GT SCH (08:13)
[2016-11-19] MEDS: OLANZapine 2.5mg tab GT SCH (08:13)
[2016-11-19] MEDS: Heparin 5000 units/ml inj SUBQ SCH ×2 (08:14→21:42)
--- NOTE | 2016-11-19 11:48 | Nephrology Progress Note ---
Assessment/Plan Problem List: (1) Fever (2) Malfunction of gastrostomy tube (3) Episode of generalized weakness (4) Sepsis (5) Severe malnutrition (6) Anemia (7) Tachycardia Plan Hypernatremia - resolved- stable lytes Will monitor Lytes Continue ABX per ID TF per GI Monitor vitals Cardilogy consult recommended Monitor H&H, transfuse as needed Adequate urine output, continue bustillo Continue pain management DVT prophylaxis Supportive care Subjective ROS Limited/Unobtainable: Yes Subjective In bed, no distress observed, family at bedside, stated that pt is asking for coffee Objective Objective Last 24 Hour Vital Signs Date Time Temp Pulse Resp B/P Pulse Ox O2 Delivery O2 Flow Rate FiO2 11/19/16 10:36 98.0 11/19/16 08:15 Nasal Cannula 2.0 28 11/19/16 08:15 99 Nasal Cannula 2.0 28 11/19/16 08:15 103 20 Nasal Cannula 2.0 28 11/19/16 08:05 98.0 120 19 131/66 95 Room Air 11/19/16 04:00 98.8 112 22 151/94 96 Room Air 11/19/16 00:00 108 11/19/16 00:00 98.1 20 139/81 93 Room Air 11/18/16 20:00 99.1 112 19 130/67 97 Nasal Cannula 2.0 11/18/16 19:52 97 Room Air 11/18/16 19:52 Room Air 21 11/18/16 19:48 108 20 Room Air 11/18/16 14:24 98.1 Intake and Output 11/18/16 11/19/16 19:00 07:00 Intake Total 275 ml Output Total 900 ml Balance -625 ml IV Total 275 ml Output Urine Total 900 ml # Voids 1 # Bowel Movements 3 Laboratory Tests 11/19/16 05:15: White Blood Count 11.5H, Red Blood Count 3.01L, Hemoglobin 9.2L, Hematocrit 28.5L, Mean Corpuscular Volume 95, Mean Corpuscular Hemoglobin 30.7, Mean Corpuscular Hemoglobin Concent 32.4, Red Cell Distribution Width 13.0, Platelet Count 209, Mean Platelet Volume 7.8, Neutrophils (%) (Auto) 74.9, Lymphocytes (% ) (Auto) 16.1L, Monocytes (%) (Auto) 8.0, Eosinophils (%) (Auto) 0.6, Basophils (%) (Auto) 0.4, Sodium Level 144, Potassium Level 3.8, Chloride Level 105, Carbon Dioxide Level 26, Anion Gap 13, Blood Urea Nitrogen 11, Creatinine 0.8, Estimat Glomerular Filtration Rate > 60, Glucose Level 105, Calcium Level 8.1L Height (Feet): 4 Height (Inches): 11.00 Weight (Pounds): 63 General Appearance: no apparent distress EENT: normal ENT inspection Neck: supple, normal inspection Cardiovascular: normal rate, regular rhythm, no JVD Respiratory/Chest: normal breath sounds, no respiratory distress Abdomen: non tender Extremities: non-tender, no calf tenderness Neurologic: disoriented Stefania Arellano N.P. Nov 19, 2016 11:48
[2016-11-19 12:42] VITALS: BP 141/83
--- NOTE | 2016-11-19 13:23 | General Progress Note ---
Assessment/Plan Problem List: (1) Coffee ground emesis ICD Codes: K92.0 - Hematemesis SNOMED: 81929750 (2) Sepsis ICD Codes: A41.9 - Sepsis, unspecified organism SNOMED: 75006118 Qualifiers: Qualified Codes: A41.9 - Sepsis, unspecified organism (3) Malfunction of gastrostomy tube ICD Codes: K94.23 - Gastrostomy malfunction SNOMED: 980038782 (4) Episode of generalized weakness ICD Codes: R53.1 - Weakness SNOMED: 53898258 (5) Physical retardation ICD Codes: R62.52 - Short stature (child) SNOMED: 083749515 (6) Leukocytosis ICD Codes: D72.829 - Elevated white blood cell count, unspecified SNOMED: 142106663 Status: stable, progressing, tolerating diet Assessment/Plan ot pt diet abx gi f/u cbc bmp am Subjective Constitutional: Reports: weakness Allergies: Coded Allergies: No Known Allergies (Unverified , 05/30/16) All Systems: reviewed and negative except above Subjective confused in bed Objective Last 24 Hour Vital Signs Date Time Temp Pulse Resp B/P Pulse Ox O2 Delivery O2 Flow Rate FiO2 11/19/16 12:42 98.2 123 20 141/83 95 Room Air 11/19/16 10:36 98.0 11/19/16 08:15 Nasal Cannula 2.0 28 11/19/16 08:15 99 Nasal Cannula 2.0 28 11/19/16 08:15 103 20 Nasal Cannula 2.0 28 11/19/16 08:05 98.0 120 19 131/66 95 Room Air 11/19/16 04:00 98.8 112 22 151/94 96 Room Air 11/19/16 00:00 108 11/19/16 00:00 98.1 20 139/81 93 Room Air 11/18/16 20:00 99.1 112 19 130/67 97 Nasal Cannula 2.0 11/18/16 19:52 97 Room Air 11/18/16 19:52 Room Air 21 11/18/16 19:48 108 20 Room Air 11/18/16 14:24 98.1 Intake and Output 11/18/16 11/19/16 18:59 06:59 Intake Total 275 ml Output Total 900 ml Balance -625 ml IV Total 275 ml Output Urine Total 900 ml # Voids 1 # Bowel Movements 3 Laboratory Tests 11/19/16 05:15: White Blood Count 11.5H, Red Blood Count 3.01L, Hemoglobin 9.2L, Hematocrit 28.5L, Mean Corpuscular Volume 95, Mean Corpuscular Hemoglobin 30.7, Mean Corpuscular Hemoglobin Concent 32.4, Red Cell Distribution Width 13.0, Platelet Count 209, Mean Platelet Volume 7.8, Neutrophils (%) (Auto) 74.9, Lymphocytes (% ) (Auto) 16.1L, Monocytes (%) (Auto) 8.0, Eosinophils (%) (Auto) 0.6, Basophils (%) (Auto) 0.4, Sodium Level 144, Potassium Level 3.8, Chloride Level 105, Carbon Dioxide Level 26, Anion Gap 13, Blood Urea Nitrogen 11, Creatinine 0.8, Estimat Glomerular Filtration Rate > 60, Glucose Level 105, Calcium Level 8.1L Height (Feet): 4 Height (Inches): 11.00 Weight (Pounds): 63 General Appearance: lethargic EENT: normal ENT inspection Neck: normal alignment Cardiovascular: normal peripheral pulses, normal rate, regular rhythm Respiratory/Chest: chest wall non-tender, lungs clear, normal breath sounds Abdomen: normal bowel sounds, non tender, soft Extremities: normal inspection Edema: no edema noted Arm (L), no edema noted Arm (R), no edema noted Leg (L), no edema noted Leg (R), no edema noted Pedal (L), no edema noted Pedal (R), no edema noted Generalized Neurologic: motor weakness Skin: normal pigmentation, warm/dry MONIK BEASLEY Nov 19, 2016 13:23
[2016-11-19] MEDS: Vancomycin 1 GM in D5W 275 ML IVPB SCH (13:51)
[2016-11-19] MEDS: LORazepam Inj 2mg/ml 1ml IVP PRN (14:16)
--- NOTE | 2016-11-19 14:57 | GI Progress Note ---
Assessment/Plan Problems: (1) Malfunction of gastrostomy tube ICD Codes: K94.23 - Gastrostomy malfunction SNOMED: 818897283 (2) Severe malnutrition ICD Codes: E43 - Unspecified severe protein-calorie malnutrition SNOMED: 87666310 (3) Leukocytosis ICD Codes: D72.829 - Elevated white blood cell count, unspecified SNOMED: 626107905 (4) Gastritis ICD Codes: K29.70 - Gastritis, unspecified, without bleeding SNOMED: 7596336 (5) Anemia ICD Codes: D64.9 - Anemia, unspecified SNOMED: 541048991 (6) Weight loss ICD Codes: R63.4 - Abnormal weight loss SNOMED: 34687026 Status: stable Status Narrative Seen with Dr. Crane. Assessment/Plan cdiff negative ok for DC per GI standpoint GT malfunction >> GT stopper pulled out by patient, replaced again today. KUB reviewed, okay to restart GTFs. GT care daily / prn honey thick diet for oral gratification H2 fu labs abx Subjective Subjective limited Objective Last 24 Hour Vital Signs Date Time Temp Pulse Resp B/P Pulse Ox O2 Delivery O2 Flow Rate FiO2 11/19/16 12:42 98.2 123 20 141/83 95 Room Air 11/19/16 10:36 98.0 11/19/16 08:15 Nasal Cannula 2.0 28 11/19/16 08:15 99 Nasal Cannula 2.0 28 11/19/16 08:15 103 20 Nasal Cannula 2.0 28 11/19/16 08:05 98.0 120 19 131/66 95 Room Air 11/19/16 04:00 98.8 112 22 151/94 96 Room Air 11/19/16 00:00 108 11/19/16 00:00 98.1 20 139/81 93 Room Air 11/18/16 20:00 99.1 112 19 130/67 97 Nasal Cannula 2.0 11/18/16 19:52 97 Room Air 11/18/16 19:52 Room Air 21 11/18/16 19:48 108 20 Room Air Intake and Output 11/18/16 11/19/16 19:00 07:00 Intake Total 275 ml Output Total 900 ml Balance -625 ml IV Total 275 ml Output Urine Total 900 ml # Voids 1 # Bowel Movements 3 Laboratory Tests Test 11/19/16 05:15 White Blood Count 11.5 K/UL (4.8-10.8) H Red Blood Count 3.01 M/UL (4.20-5.40) L Hemoglobin 9.2 G/DL (12.0-16.0) L Hematocrit 28.5 % (37.0-47.0) L Mean Corpuscular Volume 95 FL (80-99) Mean Corpuscular Hemoglobin 30.7 PG (27.0-31.0) Mean Corpuscular Hemoglobin Concent 32.4 G/DL (32.0-36.0) Red Cell Distribution Width 13.0 % (11.6-14.8) Platelet Count 209 K/UL (150-450) Mean Platelet Volume 7.8 FL (6.5-10.1) Neutrophils (%) (Auto) 74.9 % (45.0-75.0) Lymphocytes (%) (Auto) 16.1 % (20.0-45.0) L Monocytes (%) (Auto) 8.0 % (1.0-10.0) Eosinophils (%) (Auto) 0.6 % (0.0-3.0) Basophils (%) (Auto) 0.4 % (0.0-2.0) Sodium Level 144 mEQ/L (135-145) Potassium Level 3.8 mEQ/L (3.4-4.9) Chloride Level 105 mEQ/L (98-107) Carbon Dioxide Level 26 mEQ/L (20-30) Anion Gap 13 (5-15) Blood Urea Nitrogen 11 mg/dL (7-23) Creatinine 0.8 mg/dL (0.5-0.9) Estimat Glomerular Filtration Rate > 60 mL/min (>60) Glucose Level 105 mg/dL (74-106) Calcium Level 8.1 mg/dL (8.6-10.2) L Height (Feet): 4 Height (Inches): 11.00 Weight (Pounds): 63 General Appearance: no apparent distress, alert, thin Cardiovascular: normal rate Respiratory/Chest: normal breath sounds, no respiratory distress Abdominal Exam: normal bowel sounds, non tender, soft, GT site - c/d/i Concetta Reece N.P. Nov 19, 2016 14:57
[2016-11-19 16:00] VITALS: BP 147/89
--- NOTE | 2016-11-19 17:09 | Infectious Diseases Prog Note ---
Assessment/Plan Problems: (1) Sepsis Assessment & Plan: with negative blood culture , less likely , suspect leukocytosis due to dehydration VS stress related due to fracture , will stop vancomycin , cefepime, and flagyl , and monitor off antibiotics since there is no source of infection to treat at this point (2) Encounter for PEG (percutaneous endoscopic gastrostomy) Assessment & Plan: had bumper exchanged and repositioned of her G tube by GI, await confirmation by X ray to start tube feeding (3) Leukocytosis Assessment & Plan: improving , suspect due to dehydration and fracture , blood culture is negative , will stop wide spectrum antibiotics, and observe off antibiotics (4) Tibial plateau fracture, right Assessment & Plan: S/P cast placement, ortho consulted, not candidate for surgery Subjective ROS Limited/Unobtainable: Yes Allergies: Coded Allergies: No Known Allergies (Unverified , 05/30/16) Subjective she is demented, up in bed, complained of low back pain as per sister who is at the bed side , not in distress Objective Vital Signs Last 24 Hour Vital Signs Date Time Temp Pulse Resp B/P Pulse Ox O2 Delivery O2 Flow Rate FiO2 11/19/16 16:00 98.9 126 22 147/89 98 Room Air 11/19/16 12:42 98.2 123 20 141/83 95 Room Air 11/19/16 10:36 98.0 11/19/16 08:15 Nasal Cannula 2.0 28 11/19/16 08:15 99 Nasal Cannula 2.0 28 11/19/16 08:15 103 20 Nasal Cannula 2.0 28 11/19/16 08:05 98.0 120 19 131/66 95 Room Air 11/19/16 04:00 98.8 112 22 151/94 96 Room Air 11/19/16 00:00 108 11/19/16 00:00 98.1 20 139/81 93 Room Air 11/18/16 20:00 99.1 112 19 130/67 97 Nasal Cannula 2.0 11/18/16 19:52 97 Room Air 11/18/16 19:52 Room Air 21 11/18/16 19:48 108 20 Room Air Height (Feet): 4 Height (Inches): 11.00 Weight (Pounds): 63 General Appearance: WD/WN, no acute distress HEENT: normocephalic, atraumatic, anicteric, mucous membranes moist Respiratory/Chest: chest wall non-tender, lungs clear, normal breath sounds, no respiratory distress, no accessory muscle use Cardiovascular: normal peripheral pulses, regular rhythm, no gallop/murmur, tachycardia Abdomen: normal bowel sounds, soft, non tender, no organomegaly, non distended , no mass Extremities: no cyanosis, no clubbing, other - right leg in cast Skin: no rash, no lesions Laboratory Tests Test 11/19/16 05:15 White Blood Count 11.5 K/UL (4.8-10.8) H Red Blood Count 3.01 M/UL (4.20-5.40) L Hemoglobin 9.2 G/DL (12.0-16.0) L Hematocrit 28.5 % (37.0-47.0) L Mean Corpuscular Volume 95 FL (80-99) Mean Corpuscular Hemoglobin 30.7 PG (27.0-31.0) Mean Corpuscular Hemoglobin Concent 32.4 G/DL (32.0-36.0) Red Cell Distribution Width 13.0 % (11.6-14.8) Platelet Count 209 K/UL (150-450) Mean Platelet Volume 7.8 FL (6.5-10.1) Neutrophils (%) (Auto) 74.9 % (45.0-75.0) Lymphocytes (%) (Auto) 16.1 % (20.0-45.0) L Monocytes (%) (Auto) 8.0 % (1.0-10.0) Eosinophils (%) (Auto) 0.6 % (0.0-3.0) Basophils (%) (Auto) 0.4 % (0.0-2.0) Sodium Level 144 mEQ/L (135-145) Potassium Level 3.8 mEQ/L (3.4-4.9) Chloride Level 105 mEQ/L (98-107) Carbon Dioxide Level 26 mEQ/L (20-30) Anion Gap 13 (5-15) Blood Urea Nitrogen 11 mg/dL (7-23) Creatinine 0.8 mg/dL (0.5-0.9) Estimat Glomerular Filtration Rate > 60 mL/min (>60) Glucose Level 105 mg/dL (74-106) Calcium Level 8.1 mg/dL (8.6-10.2) L Current Medications Medications (Trade) Dose Ordered Sig/Curt Route PRN Reason Start Time Stop Time Status Last Admin Dose Admin Acetaminophen (Tylenol) 650 mg Q4H PRN RECTAL Mild Pain/Temp > 100.5 11/17/16 19:45 12/17/16 19:44 Al Hydroxide/Mg Hydroxide (Mylanta II) 30 ml Q6H PRN GT dyspepsia 11/17/16 18:30 12/17/16 18:29 Albuterol/ Ipratropium (DuoNeb 0.5-3(2.5)mg/3ml) 3 ml Q4H PRN HHN Shortness of Breath 11/17/16 19:30 11/22/16 19:29 Cefepime HCl 1 gm/ Dextrose 55 ml @ 110 mls/hr Q24H IV 11/18/16 05:00 11/22/16 04:59 11/19/16 04:51 Donepezil HCl (Aricept) 5 mg DAILY GT 11/18/16 09:00 12/18/16 08:59 11/19/16 08:13 Heparin Sodium (Porcine) (Heparin 5000 units/ml) 5,000 units EVERY 12 HOURS SUBQ 11/17/16 21:00 12/17/16 20:59 11/19/16 08:14 Ibuprofen (Motrin) 600 mg Q6H PRN ORAL Moderate Pain (Pain Scale 4-6) 11/17/16 16:30 12/17/16 16:29 11/18/16 06:46 Lorazepam (Ativan 2mg/ml 1ml) 1 mg Q6HR PRN IVP For Anxiety 11/17/16 18:00 11/24/16 17:59 11/19/16 14:16 Metronidazole (Flagyl) 500 mg Q8HR ORAL 11/18/16 22:00 11/21/16 21:59 11/19/16 15:16 Mirtazapine 15 mg 15 mg BEDTIME GT 11/17/16 21:00 12/17/16 20:59 11/18/16 22:41 Morphine Sulfate (Morphine Sulfate) 3 mg Q4H PRN IVP Severe Pain (Pain Scale 7-10) 11/17/16 17:30 11/24/16 17:29 11/19/16 15:18 Nitroglycerin (Ntg) 0.4 mg Q5M PRN SL Prn Chest Pain 11/17/16 16:00 12/17/16 15:59 Olanzapine (ZyPREXA) 2.5 mg DAILY GT 11/18/16 09:00 12/18/16 08:59 11/19/16 08:13 Ondansetron HCl (Zofran) 4 mg Q6H PRN IVP Nausea & Vomiting 11/17/16 21:30 12/17/16 21:29 Polyethylene Glycol (Miralax) 17 gm DAILYPRN PRN GT Constipation 11/18/16 12:30 12/18/16 12:29 Promethazine HCl/ Codeine (Phenergan with Codeine) 5 ml Q4H PRN GT For Cough 11/17/16 17:30 12/17/16 17:29 Ranitidine HCl (Zantac) 150 mg DAILY ORAL 11/19/16 09:00 12/19/16 08:59 11/19/16 08:13 Temazepam (Restoril) 15 mg HSPRN PRN GT Insomnia 11/18/16 13:30 11/25/16 13:29 Vancomycin HCl (Vanco rx to dose) 1 ea DAILY PRN MISC Per rx protocol 11/18/16 09:00 12/18/16 08:59 Vancomycin HCl/ Dextrose (Vancomycin/D5W) 275 ml @ 183.708 mls/hr Q24H IVPB 11/18/16 13:00 11/22/16 12:59 11/19/16 13:51 Fede Cannon M.D. Nov 19, 2016 17:09
--- NOTE | 2016-11-19 17:38 | Pulmonology Progress Note ---
Assessment/Plan Problems: (1) Tachycardia (2) Encounter for PEG (percutaneous endoscopic gastrostomy) (3) Malfunction of gastrostomy tube (4) Physical retardation Assessment/Plan ortho noted reviewed on cefepime and vanco check cultures check electrolytes tachycardia is chronic ortho evaluation afebrile, improving tolerating diet med/surg Subjective ROS Limited/Unobtainable: Yes Constitutional: Reports: anorexia, fatigue Gastrointestinal/Abdominal: Reports: bloating, constipation, diarrhea, nausea, vomiting Neurologic: Reports: confusion, weakness Allergies: Coded Allergies: No Known Allergies (Unverified , 05/30/16) Objective Last 24 Hour Vital Signs Date Time Temp Pulse Resp B/P Pulse Ox O2 Delivery O2 Flow Rate FiO2 11/19/16 16:00 98.9 126 22 147/89 98 Room Air 11/19/16 12:42 98.2 123 20 141/83 95 Room Air 11/19/16 10:36 98.0 11/19/16 08:15 Nasal Cannula 2.0 28 11/19/16 08:15 99 Nasal Cannula 2.0 28 11/19/16 08:15 103 20 Nasal Cannula 2.0 28 11/19/16 08:05 98.0 120 19 131/66 95 Room Air 11/19/16 04:00 98.8 112 22 151/94 96 Room Air 11/19/16 00:00 108 11/19/16 00:00 98.1 20 139/81 93 Room Air 11/18/16 20:00 99.1 112 19 130/67 97 Nasal Cannula 2.0 11/18/16 19:52 97 Room Air 11/18/16 19:52 Room Air 21 11/18/16 19:48 108 20 Room Air Intake and Output 11/18/16 11/19/16 19:00 07:00 Intake Total 275 ml Output Total 900 ml Balance -625 ml IV Total 275 ml Output Urine Total 900 ml # Voids 1 # Bowel Movements 3 General Appearance: no acute distress HEENT: normocephalic, atraumatic, PERRL Respiratory/Chest: chest wall non-tender, decreased breath sounds, accessory muscle use Breasts: no masses Cardiovascular: normal peripheral pulses, normal rate, regular rhythm, no JVD Abdomen: hypoactive bowel sounds, distended, guarding, tender, rebound tenderness, mass, other - dysfunctional feeding tube Genitourinary: normal external genitalia Extremities: no cyanosis Skin: rash, lesions Neurologic/Psychiatric: tv host II-XII grossly normal, responsive, disoriented Laboratory Tests 11/19/16 05:15: White Blood Count 11.5H, Red Blood Count 3.01L, Hemoglobin 9.2L, Hematocrit 28.5L, Mean Corpuscular Volume 95, Mean Corpuscular Hemoglobin 30.7, Mean Corpuscular Hemoglobin Concent 32.4, Red Cell Distribution Width 13.0, Platelet Count 209, Mean Platelet Volume 7.8, Neutrophils (%) (Auto) 74.9, Lymphocytes (% ) (Auto) 16.1L, Monocytes (%) (Auto) 8.0, Eosinophils (%) (Auto) 0.6, Basophils (%) (Auto) 0.4, Sodium Level 144, Potassium Level 3.8, Chloride Level 105, Carbon Dioxide Level 26, Anion Gap 13, Blood Urea Nitrogen 11, Creatinine 0.8, Estimat Glomerular Filtration Rate > 60, Glucose Level 105, Calcium Level 8.1L Current Medications Medications (Trade) Dose Ordered Sig/Curt Route PRN Reason Start Time Stop Time Status Last Admin Dose Admin Acetaminophen (Tylenol) 650 mg Q4H PRN RECTAL Mild Pain/Temp > 100.5 11/17/16 19:45 12/17/16 19:44 Al Hydroxide/Mg Hydroxide (Mylanta II) 30 ml Q6H PRN GT dyspepsia 11/17/16 18:30 12/17/16 18:29 Albuterol/ Ipratropium (DuoNeb 0.5-3(2.5)mg/3ml) 3 ml Q4H PRN HHN Shortness of Breath 11/17/16 19:30 11/22/16 19:29 Donepezil HCl (Aricept) 5 mg DAILY GT 11/18/16 09:00 12/18/16 08:59 11/19/16 08:13 Heparin Sodium (Porcine) (Heparin 5000 units/ml) 5,000 units EVERY 12 HOURS SUBQ 11/17/16 21:00 12/17/16 20:59 11/19/16 08:14 Ibuprofen (Motrin) 600 mg Q6H PRN ORAL Moderate Pain (Pain Scale 4-6) 11/17/16 16:30 12/17/16 16:29 11/18/16 06:46 Lorazepam (Ativan 2mg/ml 1ml) 1 mg Q6HR PRN IVP For Anxiety 11/17/16 18:00 11/24/16 17:59 11/19/16 14:16 Mirtazapine (Remeron) 15 mg BEDTIME GT 11/17/16 21:00 12/17/16 20:59 11/18/16 22:41 Morphine Sulfate (Morphine Sulfate) 3 mg Q4H PRN IVP Severe Pain (Pain Scale 7-10) 11/17/16 17:30 11/24/16 17:29 11/19/16 15:18 Nitroglycerin (Ntg) 0.4 mg Q5M PRN SL Prn Chest Pain 11/17/16 16:00 12/17/16 15:59 Olanzapine (ZyPREXA) 2.5 mg DAILY GT 11/18/16 09:00 12/18/16 08:59 11/19/16 08:13 Ondansetron HCl (Zofran) 4 mg Q6H PRN IVP Nausea & Vomiting 11/17/16 21:30 12/17/16 21:29 Polyethylene Glycol (Miralax) 17 gm DAILYPRN PRN GT Constipation 11/18/16 12:30 12/18/16 12:29 Promethazine HCl/ Codeine (Phenergan with Codeine) 5 ml Q4H PRN GT For Cough 11/17/16 17:30 12/17/16 17:29 Ranitidine HCl (Zantac) 150 mg DAILY ORAL 11/19/16 09:00 12/19/16 08:59 11/19/16 08:13 Temazepam (Restoril) 15 mg HSPRN PRN GT Insomnia 11/18/16 13:30 11/25/16 13:29 FRANCESCO BO Nov 19, 2016 17:38
[2016-11-19 20:02] VITALS: BP 142/91
[2016-11-20] VITALS: BP 107/64
[2016-11-20 04:00] VITALS: BP 106/68
[2016-11-20 06:54] LABS: BASOPHILS % (AUTO) 0.9 % (0.0-2.0); EOSINOPHILS % (AUTO) 1.8 % (0.0-3.0); LYMPHOCYTES % (AUTO) 28.8 % (20.0-45.0); MEAN CORPUSCULAR HEMOGLOBIN 31.7 PG (27.0-31.0); MEAN CORPUSCULAR HGB CONC 32.6 G/DL (32.0-36.0); MEAN CORPUSCULAR VOLUME 97 FL (80-99); MEAN PLATELET VOLUME 7.2 FL (6.5-10.1); MONOCYTES % (AUTO) 10.4 % (1.0-10.0); PLATELET COUNT 250 K/UL (150-450); RED BLOOD COUNT 3.03 M/UL (4.20-5.40); WHITE BLOOD COUNT 10.1 K/UL (4.8-10.8)
[2016-11-20 07:11] LABS: ANION GAP 11 (5-15); CALCIUM 8.6 mg/dL (8.6-10.2); CARBON DIOXIDE 26 mEQ/L (20-30); CHLORIDE 101 mEQ/L (98-107); CREATININE 0.8 mg/dL (0.5-0.9); GLOMERULAR FILTRATION RATE > 60 mL/min (>60); HEMOLYSIS 1; POTASSIUM 4.2 mEQ/L (3.4-4.9); SODIUM 138 mEQ/L (135-145)
[2016-11-20 07:54] VITALS: BP 138/74
[2016-11-20] MEDS: OLANZapine 2.5mg tab GT SCH (08:31)
[2016-11-20] MEDS: Donepezil 5mg Tab GT SCH (08:32)
[2016-11-20] MEDS: Heparin 5000 units/ml inj SUBQ SCH (08:33)
--- NOTE | 2016-11-20 10:18 | GI Progress Note ---
Assessment/Plan Problems: (1) Malfunction of gastrostomy tube ICD Codes: K94.23 - Gastrostomy malfunction SNOMED: 796937885 (2) Severe malnutrition ICD Codes: E43 - Unspecified severe protein-calorie malnutrition SNOMED: 19999823 (3) Leukocytosis ICD Codes: D72.829 - Elevated white blood cell count, unspecified SNOMED: 522197709 (4) Gastritis ICD Codes: K29.70 - Gastritis, unspecified, without bleeding SNOMED: 5235850 (5) Anemia ICD Codes: D64.9 - Anemia, unspecified SNOMED: 245255474 (6) Weight loss ICD Codes: R63.4 - Abnormal weight loss SNOMED: 24219483 Status: stable Status Narrative Discussed with Dr. Crane. Assessment/Plan per patient family, pt pulls out the GT stopper herself cdiff negative ok for DC per GI standpoint GT malfunction >> GT stopper replaced, ordered abdominal binder GTFs to goal rate GT care daily / prn honey thick diet for oral gratification H2 fu labs abx Subjective Subjective limited Objective Last 24 Hour Vital Signs Date Time Temp Pulse Resp B/P Pulse Ox O2 Delivery O2 Flow Rate FiO2 11/20/16 07:54 98.4 117 20 138/74 95 Room Air 11/20/16 07:44 108 18 Room Air 11/20/16 07:43 95 Room Air 11/20/16 07:43 Room Air 11/20/16 04:00 97.5 97 18 106/68 96 Room Air 11/20/16 00:00 98.2 112 18 107/64 98 Room Air 11/19/16 20:14 Room Air 11/19/16 20:13 97 Room Air 11/19/16 20:13 127 18 Room Air 11/19/16 20:02 98.6 118 22 142/91 99 Room Air 11/19/16 16:00 98.9 126 22 147/89 98 Room Air 11/19/16 12:42 98.2 123 20 141/83 95 Room Air 11/19/16 10:36 98.0 Intake and Output 11/19/16 11/20/16 19:00 07:00 Intake Total 120 ml 463 ml Output Total 250 ml 650 ml Balance -130 ml -187 ml Intake Oral 120 ml 178 ml Free Water 120 ml Tube Feeding 165 ml Output Urine Total 250 ml 650 ml # Voids 1 # Bowel Movements 3 Laboratory Tests Test 11/20/16 04:50 White Blood Count 10.1 K/UL (4.8-10.8) Red Blood Count 3.03 M/UL (4.20-5.40) L Hemoglobin 9.6 G/DL (12.0-16.0) L Hematocrit 29.5 % (37.0-47.0) L Mean Corpuscular Volume 97 FL (80-99) Mean Corpuscular Hemoglobin 31.7 PG (27.0-31.0) H Mean Corpuscular Hemoglobin Concent 32.6 G/DL (32.0-36.0) Red Cell Distribution Width 13.0 % (11.6-14.8) Platelet Count 250 K/UL (150-450) Mean Platelet Volume 7.2 FL (6.5-10.1) Neutrophils (%) (Auto) 58.0 % (45.0-75.0) Lymphocytes (%) (Auto) 28.8 % (20.0-45.0) Monocytes (%) (Auto) 10.4 % (1.0-10.0) H Eosinophils (%) (Auto) 1.8 % (0.0-3.0) Basophils (%) (Auto) 0.9 % (0.0-2.0) Sodium Level 138 mEQ/L (135-145) Potassium Level 4.2 mEQ/L (3.4-4.9) Chloride Level 101 mEQ/L (98-107) Carbon Dioxide Level 26 mEQ/L (20-30) Anion Gap 11 (5-15) Blood Urea Nitrogen 10 mg/dL (7-23) Creatinine 0.8 mg/dL (0.5-0.9) Estimat Glomerular Filtration Rate > 60 mL/min (>60) Glucose Level 103 mg/dL (74-106) Calcium Level 8.6 mg/dL (8.6-10.2) Height (Feet): 4 Height (Inches): 11.00 Weight (Pounds): 63 General Appearance: no apparent distress, alert, thin Cardiovascular: tachycardia Respiratory/Chest: normal breath sounds, no respiratory distress Abdominal Exam: normal bowel sounds, non tender, soft, GT site - c/d/i Concetta Reece N.P. Nov 20, 2016 10:18
[2016-11-20 11:28] VITALS: BP 121/56
--- NOTE | 2016-11-20 12:56 | Diagnostic Imaging Report ---
Indication: Abdominal pain Technique: Supine view of the abdomen Comparison: 08/26/70 Findings: Again demonstrated is a gastrostomy tube, position with relation to the gastric lumen indeterminate as no contrast was injected. Bowel gas pattern is unremarkable. There is a Patel catheter. No unusual masses or calcifications. Impression: No acute process
--- NOTE | 2016-11-20 12:56 | Cardiology Report ---
APPROVED REPORT EKG Measurement Heart [id number] Sinus tachycardia with short [place] Otherwise normal ECG
[2016-11-20] MEDS: Morphine Sulfate 4mg/ml Inj IVP PRN (13:52)
--- NOTE | 2016-11-20 15:23 | General Progress Note ---
Assessment/Plan Problem List: (1) Coffee ground emesis ICD Codes: K92.0 - Hematemesis SNOMED: 71174797 (2) Sepsis ICD Codes: A41.9 - Sepsis, unspecified organism SNOMED: 17720723 Qualifiers: Qualified Codes: A41.9 - Sepsis, unspecified organism (3) Malfunction of gastrostomy tube ICD Codes: K94.23 - Gastrostomy malfunction SNOMED: 995636212 (4) Episode of generalized weakness ICD Codes: R53.1 - Weakness SNOMED: 80170179 (5) Physical retardation ICD Codes: R62.52 - Short stature (child) SNOMED: 265398124 (6) Leukocytosis ICD Codes: D72.829 - Elevated white blood cell count, unspecified SNOMED: 924265288 Status: stable, progressing, tolerating diet Assessment/Plan ot pt diet abx gi f/u cbc bmp am dc plan Subjective Constitutional: Reports: weakness Allergies: Coded Allergies: No Known Allergies (Unverified , 05/30/16) All Systems: reviewed and negative except above Subjective confused in bed Objective Last 24 Hour Vital Signs Date Time Temp Pulse Resp B/P Pulse Ox O2 Delivery O2 Flow Rate FiO2 11/20/16 14:22 97.0 11/20/16 11:28 97.0 119 20 121/56 95 Room Air 11/20/16 09:32 98.4 11/20/16 07:54 98.4 117 20 138/74 95 Room Air 11/20/16 07:44 108 18 Room Air 11/20/16 07:43 95 Room Air 11/20/16 07:43 Room Air 11/20/16 04:00 97.5 97 18 106/68 96 Room Air 11/20/16 00:00 98.2 112 18 107/64 98 Room Air 11/19/16 20:14 Room Air 11/19/16 20:13 97 Room Air 11/19/16 20:13 127 18 Room Air 11/19/16 20:02 98.6 118 22 142/91 99 Room Air 11/19/16 16:00 98.9 126 22 147/89 98 Room Air Intake and Output 11/19/16 11/20/16 19:00 07:00 Intake Total 120 ml 463 ml Output Total 250 ml 650 ml Balance -130 ml -187 ml Intake Oral 120 ml 178 ml Free Water 120 ml Tube Feeding 165 ml Output Urine Total 250 ml 650 ml # Voids 1 # Bowel Movements 3 Laboratory Tests 11/20/16 04:50: White Blood Count 10.1, Red Blood Count 3.03L, Hemoglobin 9.6L, Hematocrit 29.5L , Mean Corpuscular Volume 97, Mean Corpuscular Hemoglobin 31.7H, Mean Corpuscular Hemoglobin Concent 32.6, Red Cell Distribution Width 13.0, Platelet Count 250, Mean Platelet Volume 7.2, Neutrophils (%) (Auto) 58.0, Lymphocytes (% ) (Auto) 28.8, Monocytes (%) (Auto) 10.4H, Eosinophils (%) (Auto) 1.8, Basophils (%) (Auto) 0.9, Sodium Level 138, Potassium Level 4.2, Chloride Level 101, Carbon Dioxide Level 26, Anion Gap 11, Blood Urea Nitrogen 10, Creatinine 0.8, Estimat Glomerular Filtration Rate > 60, Glucose Level 103, Calcium Level 8.6 Height (Feet): 4 Height (Inches): 11.00 Weight (Pounds): 63 General Appearance: lethargic EENT: normal ENT inspection Neck: normal alignment Cardiovascular: normal peripheral pulses, normal rate, regular rhythm Respiratory/Chest: chest wall non-tender, lungs clear, normal breath sounds Abdomen: normal bowel sounds, non tender, soft Extremities: normal inspection Edema: no edema noted Arm (L), no edema noted Arm (R), no edema noted Leg (L), no edema noted Leg (R), no edema noted Pedal (L), no edema noted Pedal (R), no edema noted Generalized Neurologic: motor weakness Skin: normal pigmentation, warm/dry MONIK BEASLEY Nov 20, 2016 15:23
[2016-11-20 16:16] VITALS: BP 148/80
[2016-11-20] MEDS ORDERED: ACEPHEN325 MG RECTAL (17:10)
[2016-11-20] MEDS ORDERED: MYLANTA II30 ML GT (17:12)
[2016-11-20] MEDS ORDERED: HEPARIN SO5000 UNIT2 SUBQ (17:16)
--- NOTE | 2016-11-20 17:17 | Pulmonology Progress Note ---
Assessment/Plan Problems: (1) Tachycardia (2) Encounter for PEG (percutaneous endoscopic gastrostomy) (3) Malfunction of gastrostomy tube (4) Physical retardation Assessment/Plan ortho noted reviewed on cefepime and vanco check cultures check electrolytes tachycardia is chronic ortho evaluation afebrile, improving tolerating diet med/surg Subjective ROS Limited/Unobtainable: Yes Constitutional: Reports: anorexia, fatigue Cardiovascular: Reports: palpitations Gastrointestinal/Abdominal: Reports: bloating, nausea Allergies: Coded Allergies: No Known Allergies (Unverified , 05/30/16) Objective Last 24 Hour Vital Signs Date Time Temp Pulse Resp B/P Pulse Ox O2 Delivery O2 Flow Rate FiO2 11/20/16 16:16 99.0 116 20 148/80 97 Room Air 11/20/16 14:22 97.0 11/20/16 11:28 97.0 119 20 121/56 95 Room Air 11/20/16 09:32 98.4 11/20/16 07:54 98.4 117 20 138/74 95 Room Air 11/20/16 07:44 108 18 Room Air 11/20/16 07:43 95 Room Air 11/20/16 07:43 Room Air 11/20/16 04:00 97.5 97 18 106/68 96 Room Air 11/20/16 00:00 98.2 112 18 107/64 98 Room Air 11/19/16 20:14 Room Air 11/19/16 20:13 97 Room Air 11/19/16 20:13 127 18 Room Air 11/19/16 20:02 98.6 118 22 142/91 99 Room Air Intake and Output 11/19/16 11/20/16 19:00 07:00 Intake Total 120 ml 463 ml Output Total 250 ml 650 ml Balance -130 ml -187 ml Intake Oral 120 ml 178 ml Free Water 120 ml Tube Feeding 165 ml Output Urine Total 250 ml 650 ml # Voids 1 # Bowel Movements 3 General Appearance: no acute distress HEENT: normocephalic, atraumatic, anicteric, PERRL Respiratory/Chest: chest wall non-tender, decreased breath sounds, accessory muscle use Breasts: no masses Cardiovascular: normal peripheral pulses, no JVD, tachycardia Abdomen: normal bowel sounds, soft, non tender, no organomegaly Genitourinary: normal external genitalia Extremities: no cyanosis Skin: rash, lesions 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, responsive, motor weakness, disoriented, depressed affect Laboratory Tests 11/20/16 04:50: White Blood Count 10.1, Red Blood Count 3.03L, Hemoglobin 9.6L, Hematocrit 29.5L , Mean Corpuscular Volume 97, Mean Corpuscular Hemoglobin 31.7H, Mean Corpuscular Hemoglobin Concent 32.6, Red Cell Distribution Width 13.0, Platelet Count 250, Mean Platelet Volume 7.2, Neutrophils (%) (Auto) 58.0, Lymphocytes (% ) (Auto) 28.8, Monocytes (%) (Auto) 10.4H, Eosinophils (%) (Auto) 1.8, Basophils (%) (Auto) 0.9, Sodium Level 138, Potassium Level 4.2, Chloride Level 101, Carbon Dioxide Level 26, Anion Gap 11, Blood Urea Nitrogen 10, Creatinine 0.8, Estimat Glomerular Filtration Rate > 60, Glucose Level 103, Calcium Level 8.6 Current Medications Medications (Trade) Dose Ordered Sig/Curt Route PRN Reason Start Time Stop Time Status Last Admin Dose Admin Acetaminophen (Tylenol) 650 mg Q4H PRN RECTAL Mild Pain/Temp > 100.5 11/17/16 19:45 12/17/16 19:44 Al Hydroxide/Mg Hydroxide (Mylanta II) 30 ml Q6H PRN GT dyspepsia 11/17/16 18:30 12/17/16 18:29 Albuterol/ Ipratropium (DuoNeb 0.5-3(2.5)mg/3ml) 3 ml Q4H PRN HHN Shortness of Breath 11/17/16 19:30 11/22/16 19:29 Donepezil HCl (Aricept) 5 mg DAILY GT 11/18/16 09:00 12/18/16 08:59 11/20/16 08:32 Heparin Sodium (Porcine) (Heparin 5000 units/ml) 5,000 units EVERY 12 HOURS SUBQ 11/17/16 21:00 12/17/16 20:59 11/20/16 08:33 Ibuprofen (Motrin) 600 mg Q6H PRN ORAL Moderate Pain (Pain Scale 4-6) 11/17/16 16:30 12/17/16 16:29 11/20/16 17:02 Lorazepam (Ativan 2mg/ml 1ml) 1 mg Q6HR PRN IVP For Anxiety 11/17/16 18:00 11/24/16 17:59 11/19/16 14:16 Mirtazapine (Remeron) 15 mg BEDTIME GT 11/17/16 21:00 12/17/16 20:59 11/19/16 21:41 Morphine Sulfate (Morphine Sulfate) 3 mg Q4H PRN IVP Severe Pain (Pain Scale 7-10) 11/17/16 17:30 11/24/16 17:29 11/20/16 13:52 Nitroglycerin (Ntg) 0.4 mg Q5M PRN SL Prn Chest Pain 11/17/16 16:00 12/17/16 15:59 Olanzapine (ZyPREXA) 2.5 mg DAILY GT 11/18/16 09:00 12/18/16 08:59 11/20/16 08:31 Ondansetron HCl (Zofran) 4 mg Q6H PRN IVP Nausea & Vomiting 11/17/16 21:30 12/17/16 21:29 Polyethylene Glycol (Miralax) 17 gm DAILYPRN PRN GT Constipation 11/18/16 12:30 12/18/16 12:29 Promethazine HCl/ Codeine (Phenergan with Codeine) 5 ml Q4H PRN GT For Cough 11/17/16 17:30 12/17/16 17:29 Ranitidine HCl (Zantac) 150 mg DAILY ORAL 11/19/16 09:00 12/19/16 08:59 11/20/16 08:31 Temazepam (Restoril) 15 mg HSPRN PRN GT Insomnia 11/18/16 13:30 11/25/16 13:29 11/19/16 21:41 FRANCESCO BO Nov 20, 2016 17:17
[2016-11-20] MEDS ORDERED: LORAZEPAM2 MG/1 M3 IV (17:21)
[2016-11-20] MEDS ORDERED: MORPHINE SU4 MG/1 ML IVP (17:24)
[2016-11-20] MEDS ORDERED: ZOFRAN 4 MG4 MG/2 ML IV (17:29)
[2016-11-20] MEDS ORDERED: PROMETH-CODEIN 65 ML GT (17:31)
[2016-11-20] MEDS ORDERED: ZANTAC150 MG GT (17:32)
[2016-11-20] MEDS ORDERED: Sterile Water Irrig 1000ml IRRIG ONE (17:58)
--- NOTE | 2016-11-20 23:16 | Nephrology Progress Note ---
Assessment/Plan Problem List: (1) Malfunction of gastrostomy tube (2) Fever (3) Tibial plateau fracture, right (4) Leukocytosis (5) Hypernatremia Assessment: likely 2/2 dehydration. resolved. Plan abx per ID. f/u cx's. monitor labs. lytes stable. renal fxn stable. agree with d/c plan. Subjective Subjective no acute events. pending discharge. Objective Objective Last 24 Hour Vital Signs Date Time Temp Pulse Resp B/P Pulse Ox O2 Delivery O2 Flow Rate FiO2 11/20/16 18:01 99.0 11/20/16 16:16 99.0 116 20 148/80 97 Room Air 11/20/16 14:22 97.0 11/20/16 11:28 97.0 119 20 121/56 95 Room Air 11/20/16 07:54 98.4 117 20 138/74 95 Room Air 11/20/16 07:44 108 18 Room Air 11/20/16 07:43 95 Room Air 11/20/16 07:43 Room Air 11/20/16 04:00 97.5 97 18 106/68 96 Room Air 11/20/16 00:00 98.2 112 18 107/64 98 Room Air Intake and Output 11/19/16 11/20/16 19:00 07:00 Intake Total 120 ml 463 ml Output Total 250 ml 650 ml Balance -130 ml -187 ml Intake Oral 120 ml 178 ml Free Water 120 ml Tube Feeding 165 ml Output Urine Total 250 ml 650 ml # Voids 1 # Bowel Movements 3 Laboratory Tests 11/20/16 04:50: White Blood Count 10.1, Red Blood Count 3.03L, Hemoglobin 9.6L, Hematocrit 29.5L , Mean Corpuscular Volume 97, Mean Corpuscular Hemoglobin 31.7H, Mean Corpuscular Hemoglobin Concent 32.6, Red Cell Distribution Width 13.0, Platelet Count 250, Mean Platelet Volume 7.2, Neutrophils (%) (Auto) 58.0, Lymphocytes (% ) (Auto) 28.8, Monocytes (%) (Auto) 10.4H, Eosinophils (%) (Auto) 1.8, Basophils (%) (Auto) 0.9, Sodium Level 138, Potassium Level 4.2, Chloride Level 101, Carbon Dioxide Level 26, Anion Gap 11, Blood Urea Nitrogen 10, Creatinine 0.8, Estimat Glomerular Filtration Rate > 60, Glucose Level 103, Calcium Level 8.6 Height (Feet): 4 Height (Inches): 11.00 Weight (Pounds): 63 General Appearance: no apparent distress Cardiovascular: normal rate, regular rhythm Respiratory/Chest: lungs clear Abdomen: non tender, soft MARCELLA CARREON Nov 20, 2016 23:16
--- NOTE | 2016-11-22 14:46 | Discharge Summary ---
Discharge Summary Hospital Course Date of Admission Nov 13, 2016 at 18:17 Date of Discharge Nov 20, 2016 at 18:44 Admitting Diagnosis SEPSIS HPI Milli Eduardo is a 61 year old female who was admitted on Nov 13, 2016 at 18:17 for Sepsis Hospital Course [id number] Discharge Discharge Disposition Patient was discharged to SNF/Subacute Facility(03) Discharge Diagnoses: Kathy Harmon NP Nov 22, 2016 14:46
--- NOTE | 2016-11-23 02:49 | Discharge Summary 2 SIG ---
DATE OF ADMISSION: 11/13/2016 DATE OF DISCHARGE: 11/20/2016 CONSULTANTS: 1. Julio Garcia M.D. 2. Lisha Clarke M.D. 3. Lc Crane M.D. 4. Fede Cannon M.D. 5. Levy Stern M.D. BRIEF HOSPITAL COURSE: The patient is a 61-year-old female, from [facility], who presented to [facility] with fever and malfunctioning G-tube. WBC count was 18. Dr. Cannon was consulted. The patient had fever, tachycardia, and watery diarrhea at the [facility]. She was given IV vancomycin and cefepime. She was also complaining of right knee pain and has severe contractures and is bed-ridden. X-ray showed extreme distal supracondylar femur fracture with osteoporosis. She was placed in the long leg splint at ED. Dr. Stern was consulted. The patient is not a good surgical candidate, as she has severe contractures and is bed-ridden and was recommended to continue with splint immobilization and would take nearly 6 to 12 weeks for fracture to heal. GI was consulted. A G-tube bumper was replaced and G-tube was repositioned. KUB done. Confirmed placement. She was started on gastrostomy tube feeds and has been tolerating feeding. Hypernatremia secondary to dehydration, improved. The patient was eventually discharged back to [facility]. FINAL DIAGNOSES: 1. Sepsis. 2. Malfunction of gastrostomy tube. 3. Severe protein-calorie malnutrition. 4. Anemia. 5. Hypernatremia likely secondary to dehydration. 6. Right supracondylar femur fracture. 7. Osteoporosis. 8. Severe knee contractures. 9. Physical retardation. 10. Status post gastrostomy tube bumper exchange and repositioning. Justyn Mcpherson D.O. I have been assigned to dictate discharge summary on this account and I was not involved in the patient's management. Kathy Harmon N.P. DR: JOHNNIE JOB#: [id number] CC:
--- NOTE | 2016-11-23 13:47 | Diagnostic Imaging Report ---
Indications: Right knee pain Technique: 3 views right knee Findings: Comparison: None There is a transverse fracture through the distal femoral metaphysis with significant comminution. Distal fragments demonstrate partial bone width posterior displacement and moderate posterior angulation. Fracture does not obviously extend to the distal articular surface. The tibial plateau is inadequately demonstrated, apparently deformed. Bones are diffusely demineralized. No dislocation or other acute change identified. Osteophytes at the margins of patellofemoral and knee joint spaces. IMPRESSION: Distal femur fracture, apparently closed Tibial plateau fracture not excludable Osteopenia Osteoarthritis
--- NOTE | 2016-11-23 13:47 | Diagnostic Imaging Report ---
Indications: Percutaneous gastrostomy tube replacement Technique: Portable AP view of the abdomen with administration of water soluble contrast through gastrostomy tube Findings: Comparison: 05/30/2016 Percutaneous gastrostomy tube tip resides within the left hemipelvis, outside the gastric gas sonogram.. Injected contrast opacifies lumens of the tube, and a small contained collection adjacent to the tube tip, precise location of the collection indeterminate. Contrast in the overlying colon renders evaluation difficult. Patel catheter in place. Bones diffusely demineralized. L3 vertebral body compression fracture again noted. IMPRESSION: Percutaneous gastrostomy tube apparently outside the stomach. Whether this represents a dedicated percutaneous jejunostomy tube or that tube resides entirely outside bowel within the peritoneal cavity cannot be differentiated on this exam. It should not be used until is question is resolved. No other evidence of acute abdominopelvic disease, with limitation as described. Chronic changes as described.
--- NOTE | 2016-11-23 13:47 | Diagnostic Imaging Report ---
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 No oral contrast utilized, per emergency room physician request No IV contrast utilized, per referring physician request.. Multiplanar reconstructions were generated. Total dose length product 360 mGycm. CTDIvol(s) 7 mGy Comparison: 09/29/2016 Findings: There is a gastrojejunostomy tube. This enters the gastric lumen through the same tract as previous gastrostomy. The gastrojejunostomy courses through the proximal jejunum, which is markedly dilated and contains markedly fecalized contents. The balloon is located within the mid jejunum. Distal to the balloon, the small bowel demonstrates normal caliber. The distal small bowel and the colon contain contrast. In fact the entirety of the colon is very well opacified, presumably from an earlier enteric contrast study. No extraluminal contrast is demonstrated. No small bowel wall thickening. The appendix is normal. There is no evidence of diverticulosis or diverticulitis. No free or loculated intraperitoneal air or fluid. The distal esophagus is unremarkable. Lack of IV contrast limits assessment of the solid organs. The gallbladder, liver, bile ducts, pancreas, spleen, adrenals, are unremarkable. The right kidney demonstrates again an exophytic 2 cm cortical cyst in the interpolar region, and a 1.5 cm cyst in the lower pole. Left kidney demonstrates an exophytic 2.5 cm lower pole cyst. No retroperitoneal or mesenteric mass or adenopathy. No pelvic mass or adenopathy. There is a Patel catheter within the bladder. Some air is seen within the bladder, presumably related to the Patel catheterization. The uterus is absent, presumably postsurgically. Previously demonstrated 7 mm left basilar opacity is is somewhat more solid-appearing currently, probably due to being more completely included in the imaging volume, but unchanged in size. A 4 mm nodule in the left costophrenic sulcus appears slightly smaller than on the prior study. There is a pleural-based posteromedial opacity which is not clearly evident previously. There are some compressive atelectatic changes at both lung bases, and some scarring at the left lung base.. The heart is mildly enlarged. The bones demonstrate a burst/compression fracture deformity of the L3 vertebral body which is also evident on the prior study. Impression: Gastrojejunostomy tube, as described, tip of which resides the within the. Jejunum. There is very unusual appearance of the proximal jejunum through which the gastrojejunostomy shaft traverses. It is markedly dilated and contains fecalized contents. This could indicate partial jejunal obstruction by the jejunostomy balloon, or could just indicate dysmotility of this segment. Left basilar lung nodules again demonstrated, unchanged. If there are significant risk factors for lung carcinoma, followup CT in one year is recommended Mild cardiomegaly L3 burst/compression fracture deformity, also previously demonstrated Other findings as noted, including bilateral basilar pulmonary compressive atelectatic changes, left basilar scarring, Patel catheterization, surgically absent uterus, bilateral renal cysts Findings discussed by phone with Drs. Crane and Ky at the time of interpretation The CT scanner at [facility] is accredited by the [employer] and the scans are performed using protocols designed to limit radiation exposure to as low as reasonably achievable to attain images of sufficient resolution adequate for diagnostic evaluation.
== END 2016-11-20 18:44 | DRG 720 ==
LOC: EDBD 17:10 → EMR 18:08 → 2E 18:17 → EMR 21:00 → EDBEDREQ 22:49 → 4W 11-17 15:51
PROC: 2W3LX1Z Immobilization of Right Lower Extremity using Splint (ICD-10-PCS; principal; 2016-11-13)
DX: A41.9 Sepsis, unspecified organism (principal); E43 Unspecified severe protein-calorie malnutrition; G93.40 Encephalopathy, unspecified; E87.0 Hyperosmolality and hypernatremia; K94.23 Gastrostomy malfunction; G20 Parkinson's disease; E86.0 Dehydration; Y83.3 Surgical operation with formation of external stoma as the cause of abnormal reaction of the patient, or of later complication, without mention of misadventure at the time of the procedure; M80.851A Other osteoporosis with current pathological fracture, right femur, initial encounter for fracture; Z68.1 Body mass index [BMI] 19.9 or less, adult; K29.70 Gastritis, unspecified, without bleeding; D64.9 Anemia, unspecified; M24.562 Contracture, left knee; M24.561 Contracture, right knee; F79 Unspecified intellectual disabilities; M17.0 Bilateral primary osteoarthritis of knee; I10 Essential (primary) hypertension
CPT/HCPCS: 36415; 71010; 74000; 74176; 80048; 80053; 80069; 80202; 81003; 82248; 82550; 82553; 83605; 83735; 84100; 84484; 85007; 85025; 87040; 87081; 87493; 93005; 94664; 94760; J2405